=== PATIENT | female | born 2000 | race Two or more races ===

== ENCOUNTER 2023-03-02 18:45 | Emergency (ER) | payer BC, SELFPAY ==
[2023-03-02 18:53] VITALS: BP 118/77; PULSE 80; RESP 20; TEMP 36.9; O2SAT 98; BMI 25.9
--- NOTE | 2023-03-02 19:05 | PC.NURSE ---
Patient states she is 8 weeks , has had increased nausea and vomiting for the past few days. Has also been constipated despite using milk of magnesia. Has just not been feeling well.
--- NOTE | 2023-03-02 19:20 | ED_ITS ---
HPI - Abdominal Pain General Chief Complaint: Abdominal Pain Stated Complaint: Abdominal Pain, Nausea - 8wks Time Seen by Provider: 03/02/23 19:03 Source: patient Mode of arrival: walk-in Limitations: no limitations History of Present Illness HPI narrative: 22-year-old female who is and approximately eight weeks presents to the emergency department for abdominal pain. It's been continuous and it's just to the upper left over from her umbilicus. No vaginal bleeding. She's been constipated. No dysuria or back pain or dysuria. No fever or trauma. Related Data Home Medications Medication Instructions Recorded Confirmed No Known Home Medications 03/02/23 03/02/23 Allergies Allergy/AdvReac Type Severity Reaction Status Date / Time No Known Drug Allergies Allergy Verified 03/02/23 18:58 Review of Systems ROS Narrative A ten point review of systems is negative except as noted above. PFSH PFS Social History Smoking status: Never smoker Exam Narrative Exam Narrative: Nurses note and vital signs reviewed and patient is not hypoxic. General: The patient appears well and in no apparent distress. Patient is resting comfortably on cart. Skin: Warm, dry, no pallor noted. There is no rash noted. Head: Normocephalic, atraumatic Eye: Normal conjunctiva, no drainage Ears, Nose, Mouth, and Throat: oral mucosa is moist. Nares patent. Cardiovascular: Regular Rate and Rhythm Respiratory: Patient is in no distress, no accessory muscle use, lungs are clear to auscultation, no wheezing, rales or rhonchi Back: non-tender GI: tender to focal area immediately to the upper left of the umbilicus. There is no tenderness across the lower abdomen. No distention or masses. Musculoskeletal: The patient has no evidence of calf tenderness, no pitting edema, symmetrical pulses noted bilaterally Neurological: A&O, normal speech Psychiatric: Cooperative Constitutional Vital Signs, click to edit/add: Last Vital Signs Temp 98.4 F 03/02/23 18:53 Pulse 80 03/02/23 18:53 Resp 20 03/02/23 18:53 BP 118/77 03/02/23 18:53 Pulse Ox 98 03/02/23 18:53 O2 Del Method Room Air 03/02/23 18:53 Course Vital Signs Vital signs: Vital Signs Temperature 98.4 F 03/02/23 18:53 Pulse Rate 80 03/02/23 18:53 Respiratory Rate 20 03/02/23 18:53 Blood Pressure 118/77 03/02/23 18:53 Pulse Oximetry 98 03/02/23 18:53 Oxygen Delivery Method Room Air 03/02/23 18:53 Temperature 98.4 F 03/02/23 18:53 Pulse Rate 80 03/02/23 18:53 Respiratory Rate 20 03/02/23 18:53 Blood Pressure 118/77 03/02/23 18:53 Pulse Oximetry 98 03/02/23 18:53 Oxygen Delivery Method Room Air 03/02/23 18:53 MDM - Abdominal Pain MDM Narrative Medical decision making narrative: the patient has already had an ultrasound during this which showed intrauterine . She has no tenderness in the lower abdomen. I've no clinical suspicion of ectopic . The rest of her workup is negative including urinalysis and blood work. She has not been having good bowel movements and was recommended MiraLAX. 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 Treatment diagnosis and follow up are discussed with the patient. Differential Diagnosis Differential diagnosis: Likely abdominal pain, constipation and gastroenteritis Lab Data Attestation: I reviewed the patient's lab results. Labs: Lab Results 03/02/23 03/02/23 Range/Units 19:20 19:25 WBC 7.7 (4.0-11.0) 10^3/uL RBC 4.56 (4.20-5.40) 10^6/uL Hgb 13.7 (12.0-16.0) g/dL Hct 41.7 (36.0-48.0) % MCV 91.4 (81.0-99.0) fL MCH 30.0 (26.7-34.0) pg MCHC 32.9 (29.9-35.2) g/dL RDW 12.9 (11.0-15.0) % Plt Count 168 (150-450) 10^3/uL MPV 12.0 (9.5-13.5) fL Neut % (Auto) 75.8 H (43.0-75.0) % Lymph % (Auto) 13.0 L (20.5-60.0) % [place] % (Auto) 8.5 (1.7-12.0) % Eos % (Auto) 2.2 (0.9-7.0) % Baso % (Auto) 0.4 (0.2-2.0) % Neut # (Auto) 5.8 (1.4-6.5) 10^3/uL Lymph # (Auto) 1.0 L (1.2-3.8) 10^3/uL [place] # (Auto) 0.7 (0.3-0.8) 10^3/uL Eos # (Auto) 0.2 (0.0-0.7) 10^3/uL Baso # (Auto) 0.0 (0.0-0.1) 10^3/uL Abs Immat Gran (auto) 0.01 (0.00-0.03) 10^3/uL Imm/Tot Granulo (auto) 0.1 (0.0-0.5) % Sodium 136 (136-145) mmol/L Potassium 3.5 (3.5-5.1) mmol/L Chloride 102 (98-107) mmol/L Carbon Dioxide 25.2 (21.0-32.0) mmol/L Anion Gap 12.3 BUN 5.0 L (7.0-18.0) mg/dL Creatinine 0.61 (0.55-1.02) mg/dL Est GFR ( Amer) >60 (>=60) Est GFR (Non-Af Amer) >60 (>=60) BUN/Creatinine Ratio 8.2 Glucose 90 (74-106) mg/dL Calcium 8.8 (8.5-10.1) mg/dL HCG, Quant 877902 mIU/mL Urine Color Yellow (YELLOW) Urine Clarity Clear (CLEAR) Urine pH 6.0 (5.0-9.0) Ur Specific [place] 1.025 (1.005-1.025) Urine Protein Negative (NEG/TRACE) mg/dL Urine Glucose (UA) Negative (NEGATIVE) mg/dL Urine Ketones Negative (NEGATIVE) mg/dL Urine Occult Blood Small A (NEGATIVE) Urine Nitrite Negative (NEGATIVE) Urine Bilirubin Negative (NEGATIVE) Urine Urobilinogen 0.2 (0.2-1.0) EU/dL Ur Leukocyte Esterase Negative (NEGATIVE) Urine RBC 2-5 A (0-2) #/HPF Urine WBC None seen (NONE SEEN) #/HPF Ur Squamous Epith Cells Few A (NONE/RARE) #/LPF Urine Crystals None seen (None Seen) #/HPF Urine Bacteria None seen (NONE SEEN) #/HPF Urine Casts None seen (NONE SEEN) #/LPF Urine Mucus Small A (NONE SEEN) Discharge Plan Discharge Chief Complaint: Abdominal Pain Clinical Impression: Abdominal pain in , Constipation Patient Disposition: Home, Self-Care Time of Disposition Decision: 21:13 Condition: Good Mode of Transportation: Private Vehicle Prescriptions / Home Meds: No Action No Known Home Medications Instructions: Constipation (ED), Abdominal Pain in (ED) Additional Instructions: [id number]-tns-jabsdoh MiraLAX for constipation Stand Alone Forms: Portal Instructions Referrals: Physician,Non-Staff, MD [Primary Care Provider] - 1 week
[2023-03-02 19:38] LABS: Bilirubin Urine NEGATIVE (NEGATIVE); Blood Urine SMALL (NEGATIVE); Clarity Urine CLEAR (CLEAR); Color Urine YELLOW (YELLOW); Glucose Urine UA NEGATIVE (NEGATIVE); Ketones Urine NEGATIVE (NEGATIVE); Leukocyte Esterase Urine NEGATIVE (NEGATIVE); Nitrite Urine NEGATIVE (NEGATIVE); Protein Urine NEGATIVE (NEG/TRACE); Specific Gravity Urine 1.025 (1.005-1.025); Urobilinogen Urine 0.2 EU/dL (0.2-1.0)
[2023-03-02] MEDS: 0.9 % SODIUM CHLORIDE 1,000 ML 1000 ML IV (19:44)
[2023-03-02 19:49] LABS: Bacteria Urine NONE SEEN #/HPF (NONE SEEN); Cast Seen? NONE SEEN #/LPF (NONE SEEN); Crystals Seen? None Seen #/HPF (None Seen); Mucus Urine SMALL (NONE SEEN); Squamous Epithelial Cell Urine FEW #/LPF (NONE/RARE); WBC Urine NONE SEEN #/HPF (NONE SEEN)
[2023-03-02 20:13] LABS: Basophils Percent Auto 0.4 % (0.2-2.0); Eosinophils Absolute Auto 0.2 10^3/uL (0.0-0.7); Eosinophils Percent Auto 2.2 % (0.9-7.0); Hematocrit 41.7 % (36.0-48.0); Hemoglobin 13.7 g/dL (12.0-16.0); Immature Granulocytes Abs Auto 0.01 10^3/uL (0.00-0.03); Immature Granulocytes Pct Auto 0.1 % (0.0-0.5); Mean Corpuscular HGB Conc 32.9 g/dL (29.9-35.2); Mean Corpuscular Volume 91.4 fL (81.0-99.0); Monocytes Absolute Auto 0.7 10^3/uL (0.3-0.8); Monocytes Percent Auto 8.5 % (1.7-12.0); Neutrophils Absolute Auto 5.8 10^3/uL (1.4-6.5); Neutrophils Percent Auto 75.8 % (43.0-75.0); Platelet Count 168 10^3/uL (150-450); Red Blood Count 4.56 10^6/uL (4.20-5.40); Red Cell Distribution Width 12.9 % (11.0-15.0); White Blood Count 7.7 10^3/uL (4.0-11.0)
[2023-03-02 20:25] LABS: Anion Gap 12.3; BUN Creatinine Ratio 8.2; Calcium 8.8 mg/dL (8.5-10.1); Carbon Dioxide 25.2 mmol/L (21.0-32.0); Chloride 102 mmol/L (98-107); Estimated GFR (African America >60 (>=60); Estimated GFR (Non-African Ame >60 (>=60); Glucose 90 mg/dL (74-106); Potassium 3.5 mmol/L (3.5-5.1); Sodium 136 mmol/L (136-145)
[2023-03-02] MEDS: ONDANSETRON PF 4 MG/2 ML VIAL IV (20:41)
== END 2023-03-02 21:28 | disposition home or self-care (01) ==
PROVIDERS: Emergency Provider Emergency Medicine
DX: O26.891 Other specified pregnancy related conditions, first trimester (principal); R10.9 Unspecified abdominal pain; K59.00 Constipation, unspecified; Z3A.08 8 weeks gestation of pregnancy
CPT/HCPCS: 36415; 80048; 81001; 84702; 85025; 99284; J2405

== ENCOUNTER 2023-03-14 09:49 | Outpatient (OUT) | payer BC, SELFPAY ==
--- NOTE | 2023-03-14 09:48 | US_ITS ---
[address] [address] Patient Name: BEN ALVA MRN: [id number] date: 2000 Sex: F Assigned Patient Location: US Current Patient Location: US Accession/Order Number: [id number] Exam Date: 03/14/2023 09:50 Report Date: 03/14/2023 10:50 At the request of: LILIAN BERRY Procedure: US OB transvaginal EXAMINATION: US OB transvaginal HISTORY: MISSED MENSES COMPARISON: No relevant comparison available. FINDINGS: Pittman intrauterine gestation Gestational sac: 3.2 cm, 8 weeks 2 days CRL: 1.19 cm, 7 weeks 3 days Yolk sac: 3.1 mm Cardiac activity: Not visualized The uterus is normal, anteverted, anteflexed The ovaries are normal. Right corpus luteal cyst Cervix: Closed, 3.3 cm Clinical age: Unknown Ultrasound age: 7 weeks 3 days Ultrasound MILLI: 10/28/2023 Dr. Berry was made aware of the findings by the technologist at the time of exam US/US OB transvaginal IMPRESSION: No cardiac activity is observed consistent with a demise Electronically authenticated by: GAVIN GODINEZ Date: 03/14/2023 10:50
--- OUTSIDE RECORDS SUMMARY | 2023-03-14 09:52 | XMS_ITS | CCD ---
Author Name Unknown Address [facility] [employer] [facility] [address] [place] [address] Organization [facility] Care Team Providers Care Diesel Technician Mechanic Name Role Phone Kadie Bird MD Primary Care Provider [phone] KADIE BIRD Primary Care Unavailable LIZZY PYLE Attending Unavailable Medications Current Medications Medication Drug Class(es) Dates Sig (Normalized) Sig (Original) loratadine 10 mg oral tablet (1 source) Start: 07-05-2021 take 1 tablet by mouth once daily loratadine (CLARITIN) 10 MG tablet Take 1 tablet by mouth daily 30 tablet 1 07/05/2021 Active Completed/Discontinued Medications Medication Drug Class(es) Dates Sig (Normalized) Sig (Original) predniSONE 20 mg oral tablet (2 sources) Start: 07-05-2021 End: 07-05-2021 predniSONE (DELTASONE) tablet 40 mg Start: 07-05-2021 End: 07-10-2021 take 1 tablet by mouth once daily predniSONE (DELTASONE) 20 MG tablet Take 1 tablet by mouth daily for 5 doses 5 tablet 0 07/05/2021 07/10/2021 Active Problems Problem Classification Problem Date Documented Da te Episodic/Chronic Other lower respiratory disease (1 source) Dyspnea; Translations: [Shortness of breath] Episodic Other upper respiratory disease (1 source) Seasonal allergy; Translations: [Other seasonal allergic rhinitis] Chronic Results Test Name Value Interpretation Reference Range Facil ity Registrationon 03-01-2020 Registration [id number] #1.00CD:127 Normal [facility] [place] 02-29-2020 Consent [id number]#1 .00CD:127 Normal [facility] In office Testingon 02-28-19 21 In office Testing [id number]# 1.00CD:127 Normal [facility] [place] 11-12-2019 Consent [id number]# 1.00CD:127 [facility] In office Testingon 11-12-19 20 In office Testing [id number]# 1.00CD:127 [facility] Vital Signs Date Time Vital Sign Value Performing Clinician Branden flynn 07-05-2021 22:45-0400 Body temperature 98.6 [degF] Lizzy Pyle MD Work Phone: [facility] 07-05-2021 22:45-0400 Body weight 56.56 kg Lizzy Pyle MD Work Phone: [facility] 07-05-2021 22:45-0400 Diastolic blood pressure 90 mm[Hg] Lizzy Pyle MD Work Phone: [facility] 07-05-2021 22:45-0400 Heart rate 97 /min Lizzy Pyle MD Work Phone: [facility] 07-05-2021 22:45-0400 Respiratory rate 16 /min Lizzy Pyle MD Work Phone: [facility] 07-05-2021 22:45-0400 SaO2% (BldA) [Mass fraction] 96 % Lizzy Pyle MD Work Phone: [facility] 07-05-2021 22:45-0400 Systolic blood pressure 126 mm[Hg] Lizzy Pyle MD Work Phone: [facility] Encounters Encounter Date Encounter Type Care Provider Facility Start: 07-06-2021 End: 07-06-2021 Emergency department patient visit KADIE BIRD [facility] Start: 07-05-2021 End: 07-05-2021 Emergency department patient visit Lizzy Pyle MD Work Phone: [facility] ED Comment on above: Shortness of breath (Primary Dx); Seasonal allergies Plan of Treatment Date Care Activity Detail Author Start: 10-25-2021 Influenza vaccination Flu vaccine (S yodit Ended) [facility] Start: 11-11-2019 DTaP/Tdap/Td vaccine (1 - Tdap) DTaP/Tdap/Td vaccine (1 - Tdap) [facility] Start: 2018 Hepatitis C screening Hepatitis C sc reen [facility] Start: 2016 Screening for Chlamy rupa trachomatis Chlamydia screen [facility] Start: 11-11-2015 HIV screening HIV screen [facility] Start: 2012 Depression Screen Depression Screen [facility] Start: 11-11-2011 HPV vaccine (1 - 2-d ose series) HPV vaccine (1 - 2-dose series) [facility] Start: 2005 COVID-19 Vaccine (1) COVID-19 Vaccin e (1) [facility] Start: 2001 Varicella vaccine (1 of 2 - 2-dose childhood series) Varicella vaccine (1 of 2 - 2-dose childhood series) [facility] Payers Date Payer Category Payer Unknown [id number] 1972 Unknown [id number] Social History Date Type Detail Facility Start: 01-03-2013 Tobacco smoking stat [facility] Never smoked tobacco [facility] Start: 01-03-2013 Tobacco use and exposure Smokeless tobacco non-user [facility] [employer] Phone: Start: 07-05-2021 Alcohol intake 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 Managing Your Allergies: Care Instructions Your Care Instructions Managing your allergies is an important part of staying healthy. Your doctor will help you find out what may be the cause of the allergies. Common causes ofsymptoms are house dust and dust mites, animal dander, mold, and pollen. As soon as you know what triggers your symptoms, try to avoid those things.This can help prevent allergy symptoms, asthma, and other health problems. Ask your doctor about allergy medicine or immunotherapy. These treatments mayhelp reduce or prevent allergy symptoms. Follow-up care is a tucker part of your treatment and safety. Be sure to make and go to all appointments, and call your doctor if you are having problems. It's also a good idea to know your test results and keep alist of the medicines you take. How can you care for yourself at home? If you have been told by your doctor that dust or dust mites are causing your allergy, decrease the dust around your bed: ? Wash sheets, pillowcases, and other bedding in hot water every week. ? Use dust-proof covers for pillows, duvets, and mattresses. Avoid plastic covers because they tear easily and do not breathe. Wash as instructed on the label. ? Do not use any blankets and pillows that you do not need. ? Use blankets that you can wash in your washing machine. ? Consider removing drapes and carpets, which attract and hold dust, from your bedroom. If you are allergic to house dust and mites, do not use home humidifiers. Your doctor can suggest ways you can control dust and mites. Look for signs of cockroaches. Cockroaches cause allergic reactions. Use cockroach baits to get rid of them. Then, clean your home well. Cockroaches like areas where grocery bags, newspapers, empty bottles, or cardboard boxes are stored. Do not keep these inside your home, and keep trash and food containers sealed. Seal off any spots where cockroaches might enter your home. If you are allergic to mold, get rid of furniture, rugs, and drapes that smell musty. Check for mold in the bathroom. If you are allergic to outdoor pollen or mold spores, use air-conditioning. Change or clean all filters every month. Keep windows closed. If you are allergic to pollen, stay inside when pollen counts are high. Use a vacuum brass cleaner with a HEPA filter or a double-thickness filter at least two times each week. Stay inside when air pollution is bad. Avoid paint fumes, perfumes, and other strong odors. Avoid conditions that make your allergies worse. Stay away from smoke. Do not smoke or let anyone else smoke in your house. Do not use fireplaces or wood-burning stoves. If you are allergic to your pets, change the air filter in your furnace every month. Use high-efficiency filters. If you are allergic to pet dander, keep pets outside or out of your bedroom. Old carpet and cloth furniture can hold a lot of animal dander. You may need to replace them. When should you call for help? Give an epinephrine shot if: You think you are having a severe allergic reaction. After giving an epinephrine shot call 911, even if you feel better. Call 911 if: You have symptoms of a severe allergic reaction. These may include: ? Sudden raised, red areas (hives) all over your body. ? Swelling of the throat, mouth, lips, or tongue. ? Trouble breathing. ? Passing out (losing consciousness). Or you may feel very lightheaded or suddenly feel weak, confused, or restless. You have been given an epinephrine shot, even if you feel better. Call your doctor now or seek immediate medical care if: You have symptoms of an allergic reaction, such as: ? A rash or hives (raised, red areas on the skin). ? Itching. ? Swelling. ? Belly pain, nausea, or vomiting. Watch closely for changes in your health, and be sure to contact your doctor if: Your allergies get worse. You need help controlling your allergies. You have questions about allergy testing. You do not get better as expected. Where can you learn more? Go to [email or web address] and sign in to your [employer] account. Enter L249 in the Search Health Information box to learn more about Managing Your Allergies: Care Instructions. If you do not have an account, please click on the Sign Up Now link. Current as of: April 05, 2020 Content Version: 13.2 [employer]. Care instructions adapted under license by [employer]. If you have questions about a medical condition or this instruction, always ask your healthcare professional. [employer] disclaims any warranty or liability for your use of this information. Seasonal Allergies: Care Instructions Your Care Instructions Allergies occur when your body's defense system (immune system) overreacts to certain substances. The immune system treats a harmless substance as if it were a harmful germ or virus. Many things can cause this to happen. Examples includepollens, medicine, food, dust, animal dander, and mold. Your allergies are seasonal if you have symptoms just at certain times of the year. In that case, you are probably allergic to pollens from certain trees,grasses, or weeds. Allergies can be mild or severe. Jpti-lss-llcxqmo allergy medicine may helpwith some symptoms. Read and follow all instructions on the label. Managing your allergies is an important part of staying healthy. Your doctor may suggest that you have tests to help find the cause of your allergies. When you know what things trigger your symptoms, you can avoid them. This canprevent allergy symptoms and other health problems. In some cases, immunotherapy might help. For this treatment, you get shots or use pills that have a small amount of certain allergens in them. Your body gets used to the allergen, so you react less to it over time. This kind oftreatment may help prevent or reduce some allergy symptoms. Follow-up care is a tucker part of your treatment and safety. Be sure to make and go to all appointments, and call your doctor if you are having problems. It's also a good idea to know your test results and keep alist of the medicines you take. How can you care for yourself at home? Be safe with medicines. Take your medicines exactly as prescribed. Call your doctor if you think you are having a problem with your medicine. During your allergy season, keep windows closed. If you need to use air-conditioning, change or clean all filters every month. Take a shower and change your clothes after you have been outside. Stay inside when pollen counts are high. Vacuum once or twice a week. Use a vacuum brass cleaner with a HEPA filter or a double-thickness filter. When should you call for help? Give an epinephrine shot if: You think you are having a severe allergic reaction. After giving an epinephrine shot, call 911, even if you feel better. Call 911 if: You have symptoms of a severe allergic reaction. These may include: ? Sudden raised, red areas (hives) all over your body. ? Swelling of the throat, mouth, lips, or tongue. ? Trouble breathing. ? Passing out (losing consciousness). Or you may feel very lightheaded or suddenly feel weak, confused, or restless. You have been given an epinephrine shot, even if you feel better. Call your doctor now or seek immediate medical care if: You have symptoms of an allergic reaction, such as: ? A rash or hives (raised, red areas on the skin). ? Itching. ? Swelling. ? Belly pain, nausea, or vomiting. Watch closely for changes in your health, and be sure to contact your doctor if: You do not get better as expected. Where can you learn more? Go to [email or web address] and sign in to your [employer] account. Enter J912 in the Search Health Information box to learn more about Seasonal Allergies: Care Instructions. If you do not have an account, please click on the Sign Up Now link. Current as of: April 05, 2020 Content Version: 13.2 [employer]. Care instructions adapted under license by [employer]. If you have questions about a medical condition or this instruction, always ask your healthcare professional. [employer] disclaims any warranty or liability for your use of this information. 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 Ordered Prescriptions (unrec ognized section and content) Prescription Sig Dispensed Refills Start Date End Da te loratadine (CLARITIN) 10 MG tablet Take 1 tablet by mouth daily 30 tablet 1 07/05/2021 predniSONE (DELTASONE) 20 MG tablet Take 1 tablet by mouth daily for 5 doses 5 tablet 0 07/05/2021 07/10/2021 Scheduled Active and Recently Administ ered Medications (unrecognized section and content) Medication Order 07/03/2021 07/04/2021 07/05/2021 predniSONE (DELTASONE) tablet 40 mg (COMPLETED) 40 mg, Oral, NOW, 1 dose, On Laurie 07/05/21 at 2330 [id number] (Given - Provid er: Brigida Brown RN) Care Teams (unrecognized sec tion and content) Diesel Technician Mechanic Relationship Specialty Start Date End Date Kadie Bird MD [address] [place] [address] PCP - General 03/14/16 FOR RECORDS PERTAINING TO PATIENTS WHO ARE OR HAVE BEEN ENROLLED IN A CHEMICAL DEPENDENCY/SUBSTANCEABUSE PROGRAM, SOME INFORMATION MAY BE OMITTED. This clinical summary was aggregated from multiple sources. Caution should be exercised in using it in the provision of clinical care. This summary normalizes information from multiple sources, and as a consequence, information in this document may materially change the coding, format and clinical context of patient data. In addition, data may be omitted in some cases. CLINICAL DECISIONS SHOULD BE BASED ON THE PRIMARY CLINICAL RECORDS. [employer] [facility]. provides no warranty or guarantee of the accuracy or completeness of information in this document.
== END 2023-03-14 09:50 | disposition home or self-care (01) ==
LOC: US 09:49
PROVIDERS: Visit Provider Obstetrics & Gynecology
DX: N92.6 Irregular menstruation, unspecified (principal); O36.4XX1 Maternal care for intrauterine death, fetus 1; Z3A.08 8 weeks gestation of pregnancy
CPT/HCPCS: 76817

== ENCOUNTER 2023-03-19 08:04 | Outpatient (OUT) | payer BC, SELFPAY ==
--- OUTSIDE RECORDS SUMMARY | 2023-03-19 08:07 | XMS_ITS | CCD ---
Author Name Unknown Address [facility] Dragon[employer] List [facility] [address] [place] [address] Organization [facility] Care Team Providers Care Cpa Tax Name Role Phone Kadie Bird MD Primary Care Provider KADIE BIRD Primary Care Unavailable LIZZY PYLE [...] Range Facil ity Registrationon 03-01-2020 Registration [id number] #1.00CD:127 Normal [facility] [place] 02-29-2020 Consent [id number]#1 .00CD:127 Normal [facility] In office Testingon 02-28-19 21 In office Testing [id number]# 1.00CD:127 Normal [facility] [place] 11-12-2019 Consent [id number]# 1.00CD:127 [facility] In office Testingon 11-12-19 20 In office Testing [id number]# 1.00CD:127 [facility] Vital Signs Date Time Vital Sign Value Performing Clinician Branden flynn 07-05-2021 22:45-0400 Body temperature 98.6 [degF] Lizzy Pyle MD Work Phone: [facility] 07-05-2021 22:45-0400 Body weight 56.56 kg Lizzy Pyle MD Work Phone: [facility] 07-05-2021 22:45-0400 Diastolic blood pressure 90 mm[Hg] Lizzy Pyle MD Work Phone: [facility] 07-05-2021 22:45-0400 Heart rate 97 /min Lizzy Pyle MD Work Phone: [facility] 07-05-2021 22:45-0400 Respiratory rate 16 /min Lizzy Pyle MD Work Phone: [facility] 07-05-2021 22:45-0400 SaO2% (BldA) [Mass fraction] 96 % Lizzy Pyle MD Work Phone: [facility] 07-05-2021 22:45-0400 Systolic blood pressure 126 mm[Hg] Lizzy Pyle MD Work Phone: [facility] Encounters Encounter Date Encounter Type Care Provider Facility Start: 07-06-2021 End: 07-06-2021 Emergency department patient visit KADIE BIRD [facility] Start: 07-05-2021 End: 07-05-2021 Emergency department patient visit Lizzy Pyle MD Work Phone: [facility] ED Comment on above: Shortness of breath (Primary Dx); Seasonal allergies Plan of Treatment Date Care Activity Detail Author Start: 10-25-2021 Influenza vaccination Flu vaccine (S yodit Ended) [facility] Start: 11-11-2019 DTaP/Tdap/Td vaccine (1 - Tdap) DTaP/Tdap/Td vaccine (1 - Tdap) [facility] Start: 2018 Hepatitis C screening Hepatitis C sc reen [facility] Start: 2016 Screening for Chlamy rupa trachomatis Chlamydia screen [facility] Start: 11-11-2015 HIV screening HIV screen [facility] Start: 2012 Depression Screen Depression Screen [facility] Start: 11-11-2011 HPV vaccine (1 - 2-d ose series) HPV vaccine (1 - 2-dose series) [facility] Start: 2005 COVID-19 Vaccine (1) COVID-19 Vaccin e (1) [facility] Start: 2001 Varicella vaccine (1 of 2 - 2-dose childhood series) Varicella vaccine (1 of 2 - 2-dose childhood series) [facility] Payers Date Payer Category Payer Unknown [id number] 1972 Unknown [id number] Social History Date Type Detail Facility Start: 01-03-2013 Tobacco smoking stat [facility] Never smoked tobacco 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 Use a vacuum freight car cleaner delta system with a HEPA filter or a double-thickness [...] Where can you learn more? Go to [email or web address] and sign in to your [employer]iz[employer] account. Enter L249 in the Search Health Information box to learn more about Managing Your Allergies: Care Instructions. If you do not have an account, please click on the Sign Up Now link. Current as of: April 05, 2020 Content Version: 13.2 [employer]. Care instructions adapted under license by [employer]. If you have questions about a medical condition or this instruction, always ask your healthcare professional. [employer] disclaims any warranty or liability for your [...] weeds. Allergies can be mild or severe. Sjsm-dxo-beexkpf allergy medicine may helpwith some symptoms. Read [...] or twice a week. Use a vacuum freight car cleaner delta system with a HEPA filter or a double-thickness [...] Where can you learn more? Go to [email or web address] and sign in to your [employer] account. Enter J912 in the Search Health Information box to learn more about Seasonal Allergies: Care Instructions. If you do not have an account, please click on the Sign Up Now link. Current as of: April 05, 2020 Content Version: 13.2 [employer] System. Care instructions adapted under license by [employer]. If you have questions about a medical condition or this instruction, always ask your healthcare professional. [employer] disclaims any warranty or liability for your use of this information. The following attachments cannot be sent through ChangePanda Everywhere.Allergies (Allergic Rhinitis): Managing (Cuban)documented in this encounter [employer] Phone: Evaluation note Note Date & Type Note Facility Evaluation note Diagnosis Shortness of breath- Primary Seasonal allergies Allergic rhinitis, cause unspecified documented in this encounter [employer] Phone: Summary Purpose Family History No Family History Records FoundNo Family History Records Found Advance Directives No Advanced Directives Records FoundDocuments on File Type Date Recorded Patient Counter Hop Expl anation ACP-Advance Directive ACP-Power of Hand Roller Engraver Additional Source Comments INFORMATION SOURCE (unrecogn ized section and content) DATE CREATED AUTHOR 03/02/2020 Keyur Jasso [facility] DATE CREATED AUTHOR AUTHOR'S ORGANIZ [...] Care Teams (unrecognized sec tion and content) Cpa Tax Relationship Specialty Start Date End Date Kadie Bird MD [address] [place] [address] PCP - General 03/14/16 FOR [...] BE BASED ON THE PRIMARY CLINICAL RECORDS. [employer] [facility]. provides no warranty or guarantee of the accuracy or completeness of information in this document.
--- NOTE | 2023-03-19 08:09 | US_ITS ---
The [address] [address] Patient Name: BEN ALVA MRN: [id number] date: 2000 Sex: F Assigned Patient Location: [facility] Current Patient Location: [facility] Accession/Order Number: [id number] Exam Date: 03/19/2023 08:08 Report Date: 03/19/2023 09:09 At the request of: LILIAN BERRY Procedure: US OB transvaginal EXAMINATION: US OB transvaginal HISTORY: VIABILITY COMPARISON: 03/14/2023 FINDINGS: Pittman intrauterine gestation Yolk sac: Calcified Gestational sac: 3.31 cm, 8 weeks 2 days CRL: 1.22 cm, 7 weeks 3 days Cardiac activity: None The uterus is normal, anteverted, anteflexed The ovaries are normal. The cervix is closed measuring 3.7 cm. Findings relayed by the technologist to Dr. Berry at the time of exam US/US OB transvaginal IMPRESSION: Absent cardiac activity consistent with demise Electronically authenticated by: GAVIN GODINEZ Date: 03/19/2023 09:09
== END 2023-03-19 08:05 | disposition home or self-care (01) ==
LOC: NOMS 08:04
PROVIDERS: Visit Provider Obstetrics & Gynecology
DX: O02.1 Missed abortion (principal); O36.80X1 Pregnancy with inconclusive fetal viability, fetus 1; Z3A.08 8 weeks gestation of pregnancy
CPT/HCPCS: 76817

== ENCOUNTER 2023-03-24 13:16 | Outpatient (OUT) | payer BC, SELFPAY ==
--- OUTSIDE RECORDS SUMMARY | 2023-03-24 13:19 | XMS_ITS | CCD ---
Author Name Unknown Address [facility] [address] [place] [address] Organization [facility] Care Team Providers Care Crusher Operator Name Role Phone Kadie Bird MD Primary [...] Range Facil ity Registrationon 03-01-2020 Registration [id number] #1.00CD:127 Normal [facility] [place] 02-29-2020 Consent [id number]#1 .00CD:127 Normal [facility] In office Testingon 02-28-19 21 In office Testing [id number]# 1.00CD:127 Normal [facility] [place] 11-12-2019 Consent [id number]# 1.00CD:127 [facility] In office Testingon 11-12-19 20 In office Testing [id number]# 1.00CD:127 [facility] Vital Signs Date Time Vital Sign Value Performing Clinician Branden flynn 07-05-2021 22:45-0400 Body temperature 98.6 [degF] Lizzy Pyle MD Work Phone: [facility] 07-05-2021 22:45-0400 Body weight 56.56 kg Lizzy Pyle MD Work Phone: [facility] 07-05-2021 22:45-0400 Diastolic blood pressure 90 mm[Hg] Lizzy Pyle MD Work Phone: [facility] 07-05-2021 22:45-0400 Heart rate 97 /min Lizzy Pyle MD Work Phone: [facility] 07-05-2021 22:45-0400 Respiratory rate 16 /min Lizzy Pyle MD Work Phone: [facility] 07-05-2021 22:45-0400 SaO2% (BldA) [Mass fraction] 96 % Lizzy Pyle MD Work Phone: [facility] 07-05-2021 22:45-0400 Systolic blood pressure 126 mm[Hg] Lizzy Pyle MD Work Phone: [facility] Encounters Encounter Date Encounter Type Care Provider Facility Start: 07-06-2021 End: 07-06-2021 Emergency department patient visit KADIE BIRD [facility] Start: 07-05-2021 End: 07-05-2021 Emergency department patient visit Lizzy Pyle MD Work Phone: [facility] ED Comment on above: Shortness of breath (Primary Dx); Seasonal allergies Plan of Treatment Date Care Activity Detail Author Start: 10-25-2021 Influenza vaccination Flu vaccine (S yodit Ended) [facility] Start: 11-11-2019 DTaP/Tdap/Td vaccine (1 - Tdap) DTaP/Tdap/Td vaccine (1 - Tdap) [facility] Start: 2018 Hepatitis C screening Hepatitis C sc reen [facility] Start: 2016 Screening for Chlamy rupa trachomatis Chlamydia screen [facility] Start: 11-11-2015 HIV screening HIV screen [facility] Start: 2012 Depression Screen Depression Screen [facility] Start: 11-11-2011 HPV vaccine (1 - 2-d ose series) HPV vaccine (1 - 2-dose series) [facility] Start: 2005 COVID-19 Vaccine (1) COVID-19 Vaccin e (1) [facility] Start: 2001 Varicella vaccine (1 of 2 - 2-dose childhood series) Varicella vaccine (1 of 2 - 2-dose childhood series) [facility] Payers Date Payer Category Payer Unknown [id number] 1972 Unknown [id number] Social History Date Type Detail Facility Start: 01-03-2013 Tobacco smoking stat [facility] Never smoked tobacco [facility] Start: 01-03-2013 Tobacco use and exposure Smokeless tobacco non-user [facility] [employer] Phone: Start: 07-05-2021 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 Use a vacuum welt stitch cleaner with a HEPA filter or a [...] Where can you learn more? Go to [email or web address] and sign in to your [employer] account. Enter L249 in the Search Health Information box to learn more about Managing Your Allergies: Care Instructions. If you do not have an account, please click on the Sign Up Now link. Current as of: April 05, 2020 Content Version: 13.2 [employer]. Care instructions adapted under license by [employer]. If you have questions about a medical condition or this instruction, always ask your healthcare professional. [employer] disclaims any warranty or liability for your [...] weeds. Allergies can be mild or severe. Ijnt-grw-irlzgbp allergy medicine may helpwith some symptoms. Read [...] or twice a week. Use a vacuum welt stitch cleaner with a HEPA filter or a [...] Where can you learn more? Go to [email or web address] and sign in to your [employer] account. Enter J912 in the Search Health Information box to learn more about Seasonal Allergies: Care Instructions. If you do not have an account, please click on the Sign Up Now link. Current as of: April 05, 2020 Content Version: 13.2 [employer]. Care instructions adapted under license by [employer]. If you have questions about a medical condition or this instruction, always ask your healthcare professional. [employer] disclaims any warranty or liability for your use of this information. 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 [employer] [facility]. provides no warranty or guarantee of the accuracy or completeness of information in this document.
--- NOTE | 2023-03-24 13:49 | PM.PRESUREVA ---
History of Present Illness History of Present Illness Chief complaint: missed ab Narrative: Patient presents for preadmission testing. The patient states she had a transvaginal ultrasound done on March 19 for viability, and there was no cardiac activity found. Patient states she has been having some light abdominal cramping but no bleeding. She denies nausea, vomiting, fever, or any other complaints. Review of Systems ROS Narrative REVIEW OF SYSTEMS: Negative except as stated in HPI, ten or more systems reviewed. Constitutional: No fever , chills, weakness ENT: No sore throat or epistaxis Cardiovascular: No edema, chest pain, palpitations, or activity intolerance Respiratory: No shortness of breath, cough, or wheezing Musculoskeletal: No joint pain or swelling Genitourinary: No dysuria or hematuria Neurological: No numbness, tingling, weakness, or headache Psychiatric: No mood changes PFSH PFS Medical History (Updated 03/24/23 @ 13:34 by Jamaica Leach NP) Missed ?O02.1 - Missed (ICD-10) Asthma ?J45.909 - Unspecified asthma, uncomplicated (ICD-10) Family History (Updated 03/24/23 @ 13:34 by Jamaica Leach NP) Other Family history of diabetes mellitus Social History (Updated 03/24/23 @ 13:32 by Jamaica Leach NP) Within the past year, how often did you have a drink containing alcohol: never Score interpretation: A score less than 3 is consistent with normal alcohol consumption. 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 Highest level of school completed/degree received: high school graduate Meds Home Medications and Allergies Home Medications Medication Instructions Recorded Confirmed Type No Known Home Medications 03/02/23 03/24/23 History Allergies Allergy/AdvReac Type Severity Reaction Status Date / Time No Known Drug Allergies Allergy Verified 03/24/23 13:31 Exam Narrative Exam Narrative: Constitutional: Awake, alert, comfortable, well-appearing, nontoxic, interactive, vital signs as charted Head: Normocephalic, atraumatic Neck: Supple, normal appearance, normal range of motion, no meningeal signs, no lymphadenopathy Respiratory: No respiratory distress, breath sounds clear Cardiovascular: Regular rate and rhythm, strong and regular heart tones Abdomen: Nontender, normal bowel sounds, soft, no CVA tenderness Musculoskeletal: Normal gait, no swelling or edema Skin: No rashes or induration, no lesions, only visible skin inspected Neuro: No neurological deficits, normal sensation Psychiatric: Oriented ?3, normal affect Assessment and Plan Assessment and Plan (1) Missed : Plan D and C with suction scheduled with Dr. Berry 03/26/2023.
== END 2023-03-24 13:17 | disposition home or self-care (01) ==
LOC: PST 13:17
PROVIDERS: Visit Provider Obstetrics & Gynecology
DX: Z01.818 Encounter for other preprocedural examination (principal); O02.1 Missed abortion
CPT/HCPCS: G0463

== ENCOUNTER 2023-03-26 07:10 | Day surgery (SDC) | payer BC, SELFPAY ==
[2023-03-24 13:45] VITALS: BP 108/71; PULSE 72; RESP 14; TEMP 36.4; O2SAT 99; BMI 24.6
[2023-03-26] VITALS (9 sets, daily range): BP systolic 84–106; BP diastolic 48–68; PULSE 67–85; RESP 16–26; TEMP 36.4–36.6; O2SAT 96–100
--- OUTSIDE RECORDS SUMMARY | 2023-03-26 07:14 | XMS_ITS | CCD ---
Author Name Unknown Address [facility] Face++ [facility] [address] [place] [address] Organization [facility] Care Team Providers Care Casing Tier Name Role Phone Kadie Bird MD Primary Care Provider [phone] KADIE BIRD Primary Care Unavailable LIZZY PYLE [...] Range Facil ity Registrationon 03-01-2020 Registration [id number] #1.00CD:127 Normal [facility] 02-29-2020 Consent [id number]#1 .00CD:127 Normal [facility] In office Testingon 02-28-19 21 In office Testing [id number]# 1.00CD:127 Normal [facility] 11-12-2019 Consent [id number]# 1.00CD:127 [facility] In office Testingon 11-12-19 20 In office Testing [id number]# 1.00CD:127 [facility] Vital Signs Date Time Vital Sign Value Performing Clinician Branden flynn 07-05-2021 22:45-0400 Body temperature 98.6 [degF] Lizzy Pyle MD Work Phone: [facility] 07-05-2021 22:45-0400 Body weight 56.56 kg Lizzy Pyle MD Work Phone: [facility] 07-05-2021 22:45-0400 Diastolic blood pressure 90 mm[Hg] Lizzy Pyle MD Work Phone: [facility] 07-05-2021 22:45-0400 Heart rate 97 /min Lizzy Pyle MD Work Phone: [facility] 07-05-2021 22:45-0400 Respiratory rate 16 /min Lizzy Pyle MD Work Phone: [facility] 07-05-2021 22:45-0400 SaO2% (BldA) [Mass fraction] 96 % Lizzy Pyle MD Work Phone: [facility] 07-05-2021 22:45-0400 Systolic blood pressure 126 mm[Hg] Lizzy Pyle MD Work Phone: [facility] Encounters Encounter Date Encounter Type Care Provider Facility Start: 07-06-2021 End: 07-06-2021 Emergency department patient visit KADIE BIRD [facility] Start: 07-05-2021 End: 07-05-2021 Emergency department patient visit Lizzy Pyle MD Work Phone: [facility] ED Comment on above: Shortness of breath (Primary Dx); Seasonal allergies Plan of Treatment Date Care Activity Detail Author Start: 10-25-2021 Influenza vaccination Flu vaccine (S yodit Ended) [facility] Start: 11-11-2019 DTaP/Tdap/Td vaccine (1 - Tdap) DTaP/Tdap/Td vaccine (1 - Tdap) [facility] Start: 2018 Hepatitis C screening Hepatitis C sc reen [facility] Start: 2016 Screening for Chlamy rupa trachomatis Chlamydia screen [facility] Start: 11-11-2015 HIV screening HIV screen [facility] Start: 2012 Depression Screen Depression Screen [facility] Start: 11-11-2011 HPV vaccine (1 - 2-d ose series) HPV vaccine (1 - 2-dose series) [facility] Start: 2005 COVID-19 Vaccine (1) COVID-19 Vaccin e (1) [facility] Start: 2001 Varicella vaccine (1 of 2 - 2-dose childhood series) Varicella vaccine (1 of 2 - 2-dose childhood series) [facility] Payers Date Payer Category Payer Unknown [id number] 1972 Unknown [id number] Social History Date Type Detail Facility Start: 01-03-2013 Tobacco smoking stat [facility] Never smoked tobacco [facility] Start: 01-03-2013 Tobacco use and exposure Smokeless tobacco non-user [facility] [facility] Phone: Start: 07-05-2021 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 Phone: Start: 06-25-2021 End: 05-13-2022 Exposure to SARS-CoV-2 (event) Not sure [employer] Work Phone: Hospital Discharge instructions 07-05-2021 InstructionsAttachments [...] pollen counts are high. Use a vacuum industrial sweeper cleaner with a HEPA filter or a [...] Where can you learn more? Go to [email or web address] and sign in to your Think Realtime account. Enter L249 in the Search Health Information box to learn more about Managing Your Allergies: Care Instructions. If you do not have an account, please click on the Sign Up Now link. Current as of: April 05, 2020 Content Version: 13.2 [employer]Library. Care instructions adapted under license by [employer] If you have questions about a medical condition or this instruction, always ask your healthcare professional. [employer] disclaims any warranty or liability for your [...] weeds. Allergies can be mild or severe. Ethz-kro-vygwojk allergy medicine may helpwith some symptoms. Read [...] or twice a week. Use a vacuum industrial sweeper cleaner with a HEPA filter or a [...] Where can you learn more? Go to [email or web address] and sign in to your Think Realtime account. Enter J912 in the Search Health Information box to learn more about Seasonal Allergies: Care Instructions. If you do not have an account, please click on the Sign Up Now link. Current as of: April 05, 2020 Content Version: 13.2 [employer]. Care instructions adapted under license by [employer] If you have questions about a medical condition or this instruction, always ask your healthcare professional. [employer] disclaims any warranty or liability for your use of this information. 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 DATE CREATED AUTHOR AUTHOR'S ORGANIZ ATION [...] Care Teams (unrecognized sec tion and content) Casing Tier Relationship Specialty Start Date End Date Kadie Bird MD [address] [place] [address] PCP - General 03/14/16 FOR [...] BE BASED ON THE PRIMARY CLINICAL RECORDS. [employer] [facility]. provides no warranty or guarantee of the accuracy or completeness of information in this document.
[2023-03-26 07:21] LABS: Basophils Percent Auto 0.6 % (0.2-2.0); Eosinophils Absolute Auto 0.2 10^3/uL (0.0-0.7); Eosinophils Percent Auto 3.5 % (0.9-7.0); Immature Granulocytes Abs Auto 0.01 10^3/uL (0.00-0.03); Immature Granulocytes Pct Auto 0.2 % (0.0-0.5); Lymphocytes Absolute Auto 2.5 10^3/uL (1.2-3.8); Lymphocytes Percent Auto 37.8 % (20.5-60.0); Mean Corpuscular HGB Conc 33.3 g/dL (29.9-35.2); Mean Corpuscular Hemoglobin 30.3 pg (26.7-34.0); Mean Corpuscular Volume 90.9 fL (81.0-99.0); Mean Platelet Volume 11.5 fL (9.5-13.5); Monocytes Absolute Auto 0.5 10^3/uL (0.3-0.8); Monocytes Percent Auto 6.9 % (1.7-12.0); Neutrophils Absolute Auto 3.3 10^3/uL (1.4-6.5); Platelet Count 169 10^3/uL (150-450); Red Blood Count 4.62 10^6/uL (4.20-5.40); Red Cell Distribution Width 13.2 % (11.0-15.0); White Blood Count 6.5 10^3/uL (4.0-11.0)
[2023-03-26 08:03] LABS: HCG Quantitative 18418 mIU/mL
[2023-03-26] MEDS: LACTATED RINGER'S SOLUTION 1,000 ML 50 ML IV (09:50)
--- NOTE | 2023-03-26 09:59 | PM.ONB ---
Brief Operative Note Date of procedure: 03/26/23 Pre-op diagnosis: missed Post-op diagnosis: same as pre-op Procedure: NAME OF PROCEDURE: [D&C suction ] PROCEDURE: The patient was taken back to the OR where she was given general anesthesia without difficulty. She was then placed in dorsal lithotomy position, prepped and draped in the normal sterile fashion. A weighted speculum was placed in the patient's vagina and the anterior lip of the cervix was identified and grasped with a single-tooth tenaculum. The patient was then gently dilated using Hegar dilators after we had sounded roughly to 12 cm. The suction curette was then tested. The suction curette was then placed in the patient's uterus and products of conception were removed using an 10-Slovenian suction curette. ?Excellent hemostasis was noted. The patient tolerated the procedure well. Sponge, lap, and needle counts were correct x 2. All instruments were then removed from the patient's vagina. The patient was taken to the Recovery Room in stable condition. ?? Anesthesia: MAC Surgeon: Sidney Berry Estimated blood loss (mL): 10 Pathology: other (poc) Condition: stable Disposition: PACU
--- NOTE | 2023-03-26 11:18 | PC.NURSE ---
Up to bathroom and voids without difficulty; moderate amount bleeding noted in toliet and moderate amount bleeding on peripad; no clots noted
--- NOTE | 2023-03-26 12:25 | PC.NURSE ---
Peripad noted to have small amount red drainage without clots; instructed to use heating pad at home and verbalized understanding
== END 2023-03-26 11:45 | disposition home or self-care (01) ==
PROVIDERS: Visit Provider Obstetrics & Gynecology
PROC: (CPT 1965; principal; 2023-03-26 08:40)
DX: O02.1 Missed abortion (principal); J45.909 Unspecified asthma, uncomplicated
CPT/HCPCS: 59820; 36415; 84702; 85025; 86900; 86901; 88305; J1100; J1885; J2250; J2405; J2590; J2704; J3010

== ENCOUNTER 2023-04-02 10:53 | Outpatient (RCR) | payer BC, SELFPAY ==
[2023-04-02 13:21] LABS: HCG Quantitative 63 mIU/mL
== END 2023-04-24 17:41 | disposition home or self-care (01) ==
LOC: LAB 10:53
PROVIDERS: Visit Provider Obstetrics & Gynecology
DX: O03.9 Complete or unspecified spontaneous abortion without complication (principal); Z98.890 Other specified postprocedural states; Z51.89 Encounter for other specified aftercare
CPT/HCPCS: 36415; 84702

== ENCOUNTER 2023-06-12 09:09 | Outpatient (RCR) | payer BC, SELFPAY ==
[2023-06-12 10:35] LABS: HCG Quantitative 5262 mIU/mL
[2023-06-14 11:01] LABS: HCG Quantitative 9929 mIU/mL
== END 2023-06-24 18:20 | disposition home or self-care (01) ==
LOC: LAB 09:09
PROVIDERS: Visit Provider Obstetrics & Gynecology
DX: N92.6 Irregular menstruation, unspecified (principal)
CPT/HCPCS: 36415; 84702

== ENCOUNTER 2023-06-18 10:22 | Outpatient (OUT) | payer BC, SELFPAY ==
[2023-06-18 11:09] LABS: HCG Quantitative 29763 mIU/mL
== END 2023-06-18 10:23 | disposition home or self-care (01) ==
LOC: LAB 10:23
PROVIDERS: Visit Provider Obstetrics & Gynecology
DX: O03.9 Complete or unspecified spontaneous abortion without complication (principal); Z98.890 Other specified postprocedural states; Z51.89 Encounter for other specified aftercare
CPT/HCPCS: 36415; 84702

== ENCOUNTER 2023-07-18 08:32 | Outpatient (OUT) | payer BC, SELFPAY ==
--- NOTE | 2023-07-18 08:34 | US_ITS ---
The [address] [address] Patient Name: BEN CHANCE MRN: [id number] date: 2000 Sex: F Assigned Patient Location: [facility] Current Patient Location: [facility] Accession/Order Number: [id number] Exam Date: 07/18/2023 08:34 Report Date: 07/18/2023 09:28 At the request of: LILIAN TORRES Procedure: US OB transvaginal EXAMINATION: US OB transvaginal HISTORY: MISSED MENSES COMPARISON: No relevant comparison available. FINDINGS: GESTATIONAL SAC: Present and normal appearing. YOLK SAC: Present and normal appearing. POLE: Present and normal appearing. CARDIAC: Present. UTERUS: Normal size and appearance. OVARIES: Right: Corpus lutein cyst. Left: Normal. CERVIX: 4.8 cm in length and closed. CUL-DE-SAC: Normal. OTHER: None. AGE BY LMP: 11 weeks 0 days MILLI BY LMP: 02/06/2024 AGE BY US CRL: 10 weeks 4 days MILLI BY US CRL: 02/09/2024 US/US OB transvaginal IMPRESSION: 1. Single live intrauterine . Electronically authenticated by: BARRY SHELDON Date: 07/18/2023 09:28
--- OUTSIDE RECORDS SUMMARY | 2023-07-18 08:51 | XMS_ITS | CCD ---
Author Organization [facility] Care Team Providers Care Recreation Establishment Manager Name Role Phone Kadie Bird MD Primary Care Provider KADIE BIRD Primary Care Unavailable LIZZY PYLE Attending Unavailable LILIAN TORRES Attending Unavailable Medications Current Medications Medication Drug [...] Range Facil ity Registrationon 03-01-2020 Registration [id number] #1.00CD:127 [facility] 02-29-2020 Consent [id number]#1 .00CD:127 [facility] In office Testingon 02-28-19 21 In office Testing [id number]# 1.00CD:127 [facility] 11-12-2019 Consent [id number]. [id number]# 1.00CD:127 [facility] In office Testingon 11-12-19 20 In office Testing [id number]. [id number]# 1.00CD:127 [facility] Vital Signs Date Time Vital Sign Value Performing Clinician Faci lity 07-05-2021 22:45-0400 Body temperature 98.6 [degF] Lizzy Pyle MD Work Phone: [facility] 07-05-2021 22:45-0400 Body weight 56.56 kg Lizzy Pyle MD Work Phone: [facility] 07-05-2021 22:45-0400 Diastolic blood pressure 90 mm[Hg] Lizzy Pyle MD Work Phone: [facility] 07-05-2021 22:45-0400 Heart rate 97 /min Lizzy Pyle MD Work Phone: [facility] 07-05-2021 22:45-0400 Respiratory rate 16 /min Lizzy Pyle MD Work Phone: [facility] 07-05-2021 22:45-0400 SaO2% (BldA) [Mass fraction] 96 % Lizzy Pyle MD Work Phone: [facility] 07-05-2021 22:45-0400 Systolic blood pressure 126 mm[Hg] Lizzy Pyle MD Work Phone: [facility] Encounters Encounter Date Encounter Type Care Provider Facility Start: 04-02-2023 End: 04-02-2023 ambulatory LILIAN TORRES Not Available Start: 07-06-2021 End: 07-06-2021 Emergency department patient visit KADIE BIRD [facility] Start: 07-05-2021 End: 07-05-2021 Emergency department patient visit Lizzy Pyle MD Work Phone: [facility] ED Comment on above: Shortness of breath (Primary Dx); Seasonal allergies Plan of Treatment Date Care Activity Detail Author Start: 10-25-2021 Influenza vaccination Flu vaccine (S yodit Ended) [facility] Start: 11-11-2019 DTaP/Tdap/Td vaccine (1 - Tdap) DTaP/Tdap/Td vaccine (1 - Tdap) [facility] Start: 2018 Hepatitis C screening Hepatitis C sc reen [facility] Start: 2016 Screening for Chlamy rupa trachomatis Chlamydia screen [facility] Start: 11-11-2015 HIV screening HIV screen [facility] Start: 2012 Depression Screen Depression Screen [facility] Start: 11-11-2011 HPV vaccine (1 - 2-d ose series) HPV vaccine (1 - 2-dose series) [facility] Start: 2005 COVID-19 Vaccine (1) COVID-19 Vaccin e (1) [facility] Start: 2001 Varicella vaccine (1 of 2 - 2-dose childhood series) Varicella vaccine (1 of 2 - 2-dose childhood series) [facility] Payers Date Payer Category Payer Unknown [id number] 2014 Unknown [id number] 2000 Unknown [id number] 1972 Unknown [id number] Social History Date Type Detail Facility [facility]: [facility]03[facility] Start: 01-03-2013 Tobacco use and exposure Smokeless tobacco non-user [facility] [employer] Phone: Start: 07-05-2021 Alcohol intake 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 Use a vacuum cone cleaner with a HEPA filter or a [...] Where can you learn more? Go to [email or web address] and sign in to your Symetis account. Enter L249 in the Search Health Information box to learn more about Managing Your Allergies: Care Instructions. If you do not have an account, please click on the Sign Up Now link. Current as of: April 05, 2020 Content Version: 13.2 [employer]. Care instructions adapted under license by [employer]. If you have questions about a medical condition or this instruction, always ask your healthcare professional. [employer] disclaims any warranty or liability for your [...] weeds. Allergies can be mild or severe. Cthq-ccc-icpcqnq allergy medicine may helpwith some symptoms. Read [...] or twice a week. Use a vacuum cone cleaner with a HEPA filter or a [...] Where can you learn more? Go to [email or web address] and sign in to your [employer]etis account. Enter J912 in the Search Health Information box to learn more about Seasonal Allergies: Care Instructions. If you do not have an account, please click on the Sign Up Now link. Current as of: April 05, 2020 Content Version: 13.2 [employer]. Care instructions adapted under license by [employer]. If you have questions about a medical condition or this instruction, always ask your healthcare professional. [employer] disclaims any warranty or liability for your use of this information. The following attachments cannot be sent through [employer] Everywhere.Allergies (Allergic Rhinitis): Managing (Turkish)documented in this encounter [employer] Phone: Evaluation note Note Date & Type Note Facility Evaluation note Diagnosis Shortness of breath- Primary Seasonal allergies Allergic rhinitis, cause unspecified documented in this encounter [employer] Phone: Summary Purpose Family History No Family History Records FoundNo Family History Records FoundNo Family History Records Found Advance Directives No Advanced Directives Records FoundDocuments on File Type Date Recorded Patient Psychology Physician Expl anation ACP-Advance Directive ACP-Power of Laminator Preforms Additional Source Comments INFORMATION SOURCE (unrecogn ized section and content) DATE CREATED AUTHOR 03/02/2020 Keyur Sand[facility] DATE CREATED AUTHOR AUTHOR'S ORGANIZ ATION 07/07/2021 [facility] DATE CREATED AUTHOR AUTHOR'S ORGANIZ ATION 04/03/2023 [facility] EPIC Reason for Visit (unrecogniz ed section and [...] Care Teams (unrecognized sec tion and content) Recreation Establishment Manager Relationship Specialty Start Date End Date Kadie Bird MD [address] [place] [address] PCP - General 03/14/16 FOR [...] BE BASED ON THE PRIMARY CLINICAL RECORDS. [facility]. provides no warranty or guarantee of the accuracy or completeness of information in this document.
== END 2023-07-18 08:33 | disposition home or self-care (01) ==
LOC: NOMS 08:32
PROVIDERS: Visit Provider Obstetrics & Gynecology
DX: Z34.91 Encounter for supervision of normal pregnancy, unspecified, first trimester (principal); Z3A.10 10 weeks gestation of pregnancy; N92.6 Irregular menstruation, unspecified
CPT/HCPCS: 76817

== ENCOUNTER 2023-08-19 09:28 | Outpatient (OUT) | payer BC, SELFPAY ==
--- OUTSIDE RECORDS SUMMARY | 2023-08-19 09:44 | XMS_ITS | CCD ---
Author Organization [facility] Inform ion Partnership [facility] Care Team Providers Care Manager Poker Name Role Phone Kadie Bird MD Primary [...] Range Facil ity Registrationon 03-01-2020 Registration [id number] #1.00CD:127 [facility] [place] 02-29-2020 Consent [id number]#1 .00CD:127 [facility] In office Testingon 02-28-19 21 In office Testing [id number]# 1.00CD:127 [facility] [place] 11-12-2019 Consent [id number]# 1.00CD:127 [facility] In office Testingon 11-12-19 20 In office Testing [id number]# 1.00CD:127 [facility] Vital Signs Date Time Vital Sign Value Performing Clinician Faci lity 07-05-2021 22:45-0400 Body temperature 98.6 [degF] Lizzy Pyle MD Work Phone: [facility] 07-05-2021 22:45-0400 Body weight 56.56 kg Lizzy Pyle MD Work Phone: [facility] 07-05-2021 22:45-0400 Diastolic blood pressure 90 mm[Hg] Lizzy Pyle MD Work Phone: [facility] 07-05-2021 22:45-0400 Heart rate 97 /min Lizzy Pyle MD Work Phone: [facility] 07-05-2021 22:45-0400 Respiratory rate 16 /min Lizzy Pyle MD Work Phone: [facility] 07-05-2021 22:45-0400 SaO2% (BldA) [Mass fraction] 96 % Lizzy Pyle MD Work Phone: [facility] 07-05-2021 22:45-0400 Systolic blood pressure 126 mm[Hg] Lizzy Pyle MD Work Phone: [facility] Encounters Encounter Date Encounter Type Care Provider Facility Start: 07-18-2023 End: 07-18-2023 ambulatory LILIAN MELISSA Not Available Start: 04-02-2023 End: 04-02-2023 ambulatory LILIAN MELISSA Not Available Start: 07-06-2021 End: 07-06-2021 Emergency department patient visit KADIE BIRD [facility] Start: 07-05-2021 End: 07-05-2021 Emergency department patient visit Lizzy Pyle MD Work Phone: [facility] ED Comment on above: Shortness of breath (Primary Dx); Seasonal allergies Plan of Treatment Date Care Activity Detail Author Start: 10-25-2021 Influenza vaccination Flu vaccine (S yodit Ended) [facility] Start: 11-11-2019 DTaP/Tdap/Td vaccine (1 - Tdap) DTaP/Tdap/Td vaccine (1 - Tdap) [facility] Start: 2018 Hepatitis C screening Hepatitis C sc reen [facility] Start: 2016 Screening for Chlamy rupa trachomatis Chlamydia screen [facility] Start: 11-11-2015 HIV screening HIV screen [facility] Start: 2012 Depression Screen Depression Screen [facility] Start: 11-11-2011 HPV vaccine (1 - 2-d ose series) HPV vaccine (1 - 2-dose series) [facility] Start: 2005 COVID-19 Vaccine (1) COVID-19 Vaccin e (1) [facility] Start: 2001 Varicella vaccine (1 of 2 - 2-dose childhood series) Varicella vaccine (1 of 2 - 2-dose childhood series) [facility] Payers Date Payer Category Payer Unknown [id number] 2014 Unknown [id number] 2000 Unknown [id number] [id number] [id number] 2000 Unknown [id number] [id number] [id number] 1972 Unknown [id number] [id number] [id number] Social History Date Type Detail Facility Start: 01-03-2013 Tobacco smoking stat [facility] Never smoked tobacco 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 Use a vacuum service line bus cleaner with a HEPA filter or a [...] Where can you learn more? Go to [email or web address] and sign in to your Torrential account. Enter L249 in the Search Health Information box to learn more about Managing Your Allergies: Care Instructions. If you do not have an account, please click on the Sign Up Now link. Current as of: April 05, 2020 Content Version: 13.2 [employer]pocket [employer]. Care instructions adapted under license by [employer]. If you have questions about a medical condition or this instruction, always ask your healthcare professional. [employer] disclaims any warranty or liability for your [...] weeds. Allergies can be mild or severe. Talm-soc-dzvazjk allergy medicine may helpwith some symptoms. Read [...] or twice a week. Use a vacuum service line bus cleaner with a HEPA filter or a [...] Where can you learn more? Go to [email or web address] and sign in to your Torrential account. Enter J912 in the Search Health Information box to learn more about Seasonal Allergies: Care Instructions. If you do not have an account, please click on the Sign Up Now link. Current as of: April 05, 2020 Content Version: 13.2 [employer]. Care instructions adapted under license by [employer]. If you have questions about a medical condition or this instruction, always ask your healthcare professional. [employer] disclaims any warranty or liability for your use of this information. The following attachments cannot be sent through Care Everywhere.Allergies (Allergic Rhinitis): Managing (Slovenian)documented in this encounter [employer] Phone: Evaluation note Note Date & Type Note Facility Evaluation note Diagnosis Shortness of breath- Primary Seasonal allergies Allergic rhinitis, cause unspecified documented in this encounter [employer] Phone: Summary Purpose Family History No Family History Records FoundNo Family History Records FoundNo Family History Records Found Advance Directives No Advanced Directives Records FoundDocuments on File Type Date Recorded Patient Utilization Supervisor Expl anation ACP-Advance Directive ACP-Power of Color Shop Helper Additional Source Comments INFORMATION SOURCE (unrecogn ized section and content) DATE CREATED AUTHOR 03/02/[address] [facility] DATE CREATED AUTHOR AUTHOR'S ORGANIZ ATION 07/07/2021 [facility] DATE CREATED AUTHOR AUTHOR'S ORGANIZ ATION 07/20/2023 [facility] Specialists EPIC Reason for Visit (unrecogniz ed [...] Care Teams (unrecognized sec tion and content) Manager Poker Relationship Specialty Start Date End Date Kadie Bird MD [address] [place] [address] PCP - General 03/14/16 FOR [...] BE BASED ON THE PRIMARY CLINICAL RECORDS. [facility]. provides no warranty or guarantee of the accuracy or completeness of information in this document.
[2023-08-21 02:08] LABS: AFP Value 17.5 ng/mL (.); Gest. Age on Collection Date 15.6 weeks (.); Insulin Dep Diabetes No (.); Maternal Age At EDD 23.2 yr (.); OSBR Risk 1 IN 10000 (.); Results Report (.)
== END 2023-08-19 09:29 | disposition home or self-care (01) ==
LOC: LAB 09:29
PROVIDERS: Visit Provider Obstetrics & Gynecology
DX: Z36.1 Encounter for antenatal screening for raised alphafetoprotein level (principal)
CPT/HCPCS: 36415; 82105

== ENCOUNTER 2023-08-19 19:49 | Outpatient (REF) | payer BC, SELFPAY ==
--- OUTSIDE RECORDS SUMMARY | 2023-08-19 19:53 | XMS_ITS | CCD ---
Author Organization [facility] Inform ion Partnership [facility] Care Team Providers Care Credit Control Officer Name Role Phone Kadie Bird MD Primary [...] Range Facil ity Registrationon 03-01-2020 Registration [id number] #1.00CD:127 [facility] [place] 02-29-2020 Consent [id number]#1 .00CD:127 [facility] In office Testingon 02-28-19 21 In office Testing [id number]. [id number]# 1.00CD:127 [facility] [place] 11-12-2019 Consent [id number]. [id number]# 1.00CD:127 [facility] In office Testingon 11-12-19 20 In office Testing [id number]. [id number]# 1.00CD:127 [facility] Vital Signs Date Time Vital Sign Value Performing Clinician Faci lity 07-05-2021 22:45-0400 Body temperature 98.6 [degF] Lizzy Pyle MD Work Phone: [facility] 07-05-2021 22:45-0400 Body weight 56.56 kg Lizzy Pyle MD Work Phone: [facility] 07-05-2021 22:45-0400 Diastolic blood pressure 90 mm[Hg] Lizzy Pyle MD Work Phone: [facility] 07-05-2021 22:45-0400 Heart rate 97 /min Lizzy Pyle MD Work Phone: [facility] 07-05-2021 22:45-0400 Respiratory rate 16 /min Lizzy Pyle MD Work Phone: [facility] 07-05-2021 22:45-0400 SaO2% (BldA) [Mass fraction] 96 % Lizzy Pyle MD Work Phone: [facility] 07-05-2021 22:45-0400 Systolic blood pressure 126 mm[Hg] Lizzy Pyle MD Work Phone: [facility] Encounters Encounter Date Encounter Type Care Provider Facility Start: 07-18-2023 End: 07-18-2023 ambulatory LILIAN MELISSA Not Available Start: 04-02-2023 End: 04-02-2023 ambulatory LILIAN MELISSA Not Available Start: 07-06-2021 End: 07-06-2021 Emergency department patient visit KADIE BIRD [facility] Start: 07-05-2021 End: 07-05-2021 Emergency department patient visit Lizzy Pyle MD Work Phone: [facility] ED Comment on above: Shortness of breath (Primary Dx); Seasonal allergies Plan of Treatment Date Care Activity Detail Author Start: 10-25-2021 Influenza vaccination Flu vaccine (S yodit Ended) [facility] Start: 11-11-2019 DTaP/Tdap/Td vaccine (1 - Tdap) DTaP/Tdap/Td vaccine (1 - Tdap) [facility] Start: 2018 Hepatitis C screening Hepatitis C sc reen [facility] Start: 2016 Screening for Chlamy rupa trachomatis Chlamydia screen [facility] Start: 11-11-2015 HIV screening HIV screen [facility] Start: 2012 Depression Screen Depression Screen [facility] Start: 11-11-2011 HPV vaccine (1 - 2-d ose series) HPV vaccine (1 - 2-dose series) [facility] Start: 2005 COVID-19 Vaccine (1) COVID-19 Vaccin e (1) [facility] Start: 2001 Varicella vaccine (1 of 2 - 2-dose childhood series) Varicella vaccine (1 of 2 - 2-dose childhood series) [facility] Payers Date Payer Category Payer Unknown [id number] 2014 Unknown [id number] 2000 Unknown [id number] [id number] [id number] 2000 Unknown [id number] [id number] [id number] 1972 Unknown [id number] 2.16.8 [id number] Social History Date Type Detail Facility Start: 01-03-2013 Tobacco smoking stat [facility] Never smoked tobacco [facility] Start: 01-03-2013 Tobacco use and exposure Smokeless tobacco non-user [employer] Phone: Start: 07-05-2021 Alcohol intake Current non-dr partner of alcohol (finding) [employer] Phone: Start: 2000 Sex Assigned At Not on file [employer] Phone: Start: 06-25-2021 End: 07-06-2021 Exposure to SARS-CoV-2 (event) Not sure [employer] Phone: Hospital Discharge instructions 07-05-2021 InstructionsAttachments Note [...] pollen counts are high. Use a vacuum lamp cleaner with a HEPA filter or a [...] Where can you learn more? Go to [email or web address] and sign in to your CTMG account. Enter L249 in the Search Health Information box to learn more about Managing Your Allergies: Care Instructions. If you do not have an account, please click on the Sign Up Now link. Current as of: April 05, 2020 Content Version: 13.2 [employer]iant. Care instructions adapted under license by [employer]. If you have questions about a medical condition or this instruction, always ask your healthcare professional. [employer] disclaims any warranty or liability for your [...] weeds. Allergies can be mild or severe. Myaj-efl-fwuljpg allergy medicine may helpwith some symptoms. Read [...] or twice a week. Use a vacuum lamp cleaner with a HEPA filter or a [...] Where can you learn more? Go to [email or web address] and sign in to your [employer]MG account. Enter J912 in the Search Health Information box to learn more about Seasonal Allergies: Care Instructions. If you do not have an account, please click on the Sign Up Now link. Current as of: April 05, 2020 Content Version: 13.2 [employer]. Care instructions adapted under license by [employer]. If you have questions about a medical condition or this instruction, always ask your healthcare professional. [employer] disclaims any warranty or liability for your use of this information. 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 Creative Director Additional Source Comments INFORMATION SOURCE (unrecogn ized section and content) DATE CREATED AUTHOR 03/02/2020 [employer] [facility] DATE CREATED AUTHOR AUTHOR'S ORGANIZ ATION 07/07/2021 [facility] DATE CREATED AUTHOR AUTHOR'S ORGANIZ ATION 07/20/2023 [facility] Specialists EPIC Reason for Visit (unrecogniz ed [...] Care Teams (unrecognized sec tion and content) Credit Control Officer Relationship Specialty Start Date End Date Kadie Bird MD [address] [place] [address] PCP - General 03/14/16 FOR [...] BE BASED ON THE PRIMARY CLINICAL RECORDS. [facility]. provides no warranty or guarantee of the accuracy or completeness of information in this document.
[2023-08-22 15:10] LABS: Age Gdln ACOG Testing Note (.); IGP, rfx Aptima HPV ASCU Note (.)
== END 2023-08-19 19:50 | disposition home or self-care (01) ==
LOC: LAB 19:49
PROVIDERS: Visit Provider Obstetrics & Gynecology
DX: Z01.419 Encounter for gynecological examination (general) (routine) without abnormal findings (principal)
CPT/HCPCS: 36415; 82105; 88175

== ENCOUNTER 2023-09-18 09:10 | Outpatient (OUT) | payer OTHER, SELFPAY ==
--- OUTSIDE RECORDS SUMMARY | 2023-09-18 09:20 | XMS_ITS | CCD ---
Author Organization [facility] Partnership 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 [id number]# 1.00CD:127 Normal [facility] [place] 11-12-2019 Consent [id number]. [id number]# 1.00CD:127 [facility] In office Testingon 11-12-19 20 In office Testing [id number]. [id number]# 1.00CD:127 Normal [facility] Vital Signs Date Time Vital Sign Value Performing Clinician Branden lityogi 07-05-2021 22:45-0400 Body temperature 98.6 [degF] Lizzy Pyle MD Work Phone: [facility] 07-05-2021 22:45-0400 Body weight 56.56 kg Lizzy Pyle MD Work Phone: [facility] 07-05-2021 22:45-0400 Diastolic blood pressure 90 mm[Hg] Lizzy Pyle MD Work Phone: [facility] 07-05-2021 22:45-0400 Heart rate 97 /min Lizzy Pyle MD Work Phone: [facility] 07-05-2021 22:45-0400 Respiratory rate 16 /min Lizzy Pyle MD Work Phone: [facility] 07-05-2021 22:45-0400 SaO2% (BldA) [Mass fraction] 96 % Lizzy Pyle MD Work Phone: [facility] 07-05-2021 22:45-0400 Systolic blood pressure 126 mm[Hg] Lizzy Pyle MD Work Phone: [facility] Encounters Encounter Date Encounter Type Care Provider Facility Start: 08-19-2023 End: 08-19-2023 ambulatory LILIAN MELISAS Not Available Start: 07-18-2023 End: 07-18-2023 ambulatory LILIAN MELISSA Not Available Start: 04-02-2023 End: 04-02-2023 ambulatory LILIAN ROGERSZIO Not Available Start: 07-06-2021 End: 07-06-2021 Emergency department patient visit KADIE BIRD [facility] Start: 07-05-2021 End: 07-05-2021 Emergency department patient visit Lizzy Pyle MD Work Phone: [facility] ED Comment on above: Shortness of breath (Primary Dx); Seasonal allergies Plan of Treatment Date Care Activity Detail Author Start: 10-25-2021 Influenza vaccination Flu vaccine (S yodit Ended) [facility] Start: 11-11-2019 DTaP/Tdap/Td vaccine (1 - Tdap) DTaP/Tdap/Td vaccine (1 - Tdap) [facility] Start: 2018 Hepatitis C screening Hepatitis C sc reen [facility] Start: 2016 Screening for Chlamy rupa trachomatis Chlamydia screen [facility] Start: 11-11-2015 HIV screening HIV screen [facility] Start: 2012 Depression Screen Depression Screen [facility] Start: 11-11-2011 HPV vaccine (1 - 2-d ose series) HPV vaccine (1 - 2-dose series) [facility] Start: 2005 COVID-19 Vaccine (1) COVID-19 Vaccin e (1) [facility] Start: 2001 Varicella vaccine (1 of 2 - 2-dose childhood series) Varicella vaccine (1 of 2 - 2-dose childhood series) [facility] Payers Date Payer Category Payer Unknown [id number] 2014 Unknown [id number] 2000 Unknown [id number] 2.16.84 [id number] 2000 Unknown [id number] 2.16.84 [id number] 2000 Unknown [id number] 2.16.84 [id number] 1972 Unknown [id number] 2.16.8 [id number] Social History Date Type Detail Facility Start: 01-03-2013 Tobacco smoking stat [facility] Never smoked tobacco [employer] Start: 01-03-2013 Tobacco use and exposure Smokeless tobacco non-user [employer] Phone: Start: 07-05-2021 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 Use a vacuum dry cleaner with a HEPA filter or a [...] Where can you learn more? Go to [email or web address] and sign in to your beatlab account. Enter L249 in the Search Health Information box to learn more about Managing Your Allergies: Care Instructions. If you do not have an account, please click on the Sign Up Now link. Current as of: April 05, 2020 Content Version: 13.2 [employer]. Care instructions adapted under license by [employer]. If you have questions about a medical condition or this instruction, always ask your healthcare professional. [employer] disclaims any warranty or liability for your [...] weeds. Allergies can be mild or severe. Oxox-tgd-hpkfujt allergy medicine may helpwith some symptoms. Read [...] or twice a week. Use a vacuum dry cleaner with a HEPA filter or a [...] Where can you learn more? Go to [email or web address] and sign in to your beatlab account. Enter J912 in the Search Health Information box to learn more about Seasonal Allergies: Care Instructions. If you do not have an account, please click on the Sign Up Now link. Current as of: April 05, 2020 Content Version: 13.2 [employer]. Care instructions adapted under license by [employer]. If you have questions about a medical condition or this instruction, always ask your healthcare professional. [email or web address] disclaims any warranty or liability for your use of this information. 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 ACP-Advance Directive ACP-Power of Bottle Sorter Additional Source Comments INFORMATION SOURCE (unrecogn ized section and content) DATE CREATED AUTHOR [facility]/02/2020 [facility] DATE CREATED AUTHOR AUTHOR'S ORGANIZ ATION 07/07/2021 [facility] Craig Avendaño [facility] DATE CREATED AUTHOR AUTHOR'S ORGANIZ ATION 08/20/2023 [facility] dicfl Specialists EPIC Reason for Visit (unrecogniz ed [...] Care Teams (unrecognized sec tion and content) Engineering Job Titles Relationship Specialty Start Date End Date Kadie Bird MD [address] [place] [address] PCP - General 03/14/16 FOR RECORDS PERTAINING [...] BE BASED ON THE PRIMARY CLINICAL RECORDS. [facility]. provides no warranty or guarantee of the accuracy or completeness of information in this document.
[2023-09-18 09:37] LABS: Basophils Percent Auto 0.4 % (0.2-2.0); Eosinophils Absolute Auto 0.4 10^3/uL (0.0-0.7); Eosinophils Percent Auto 3.2 % (0.9-7.0); Hematocrit 38.7 % (36.0-48.0); Immature Granulocytes Abs Auto 0.04 10^3/uL (0.00-0.03); Immature Granulocytes Pct Auto 0.4 % (0.0-0.5); Lymphocytes Absolute Auto 1.4 10^3/uL (1.2-3.8); Lymphocytes Percent Auto 12.6 % (20.5-60.0); Mean Corpuscular HGB Conc 33.6 g/dL (29.9-35.2); Mean Corpuscular Hemoglobin 30.6 pg (26.7-34.0); Mean Corpuscular Volume 91.1 fL (81.0-99.0); Mean Platelet Volume 11.8 fL (9.5-13.5); Monocytes Absolute Auto 0.6 10^3/uL (0.3-0.8); Monocytes Percent Auto 5.6 % (1.7-12.0); Neutrophils Absolute Auto 8.7 10^3/uL (1.4-6.5); Neutrophils Percent Auto 77.8 % (43.0-75.0); Platelet Count 155 10^3/uL (150-450); Red Blood Count 4.25 10^6/uL (4.20-5.40); Red Cell Distribution Width 13.2 % (11.0-15.0); White Blood Count 11.2 10^3/uL (4.0-11.0)
[2023-09-18 10:33] LABS: Estimated Average Glucose 85 mg/dL; Glycohemoglobin A1C 4.6 % (4.5-6.2)
[2023-09-19 06:10] LABS: HBsAg Screen Negative (Negative); HCV Ab Non Reactive (Non Reactive); HIV Ab/p24 Ag Screen Non Reactive (Non Reactive); Rubella Antibodies, IgG 1.34 index (Immune >0.99)
[2023-09-19 12:10] LABS: Rapid Plasma Reagin, Quant Non Reactive titer (NonRea<1:1)
[2023-09-21 01:06] LABS: AFP Value 49.7 ng/mL (.); Gest. Age on Collection Date 19.9 weeks (.); Insulin Dep Diabetes No (.); Maternal Age At EDD 23.2 yr (.); OSBR Risk 1 IN 10000 (.); Results Report (.)
== END 2023-09-18 09:11 | disposition home or self-care (01) ==
LOC: LAB 09:15
PROVIDERS: Visit Provider Obstetrics & Gynecology
DX: Z34.92 Encounter for supervision of normal pregnancy, unspecified, second trimester (principal); Z36.1 Encounter for antenatal screening for raised alphafetoprotein level; N92.6 Irregular menstruation, unspecified
CPT/HCPCS: 36415; 82105; 83036; 85025; 86592; 86762; 86803; 86850; 86900; 86901; 87086; 87340; 87389

== ENCOUNTER 2023-09-24 07:00 | Outpatient (OUT) | payer OTHER, SELFPAY ==
--- OUTSIDE RECORDS SUMMARY | 2023-09-24 07:02 | XMS_ITS | CCD ---
Author Organization 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# 1.00CD:127 Normal [facility] [place] 11-12-2019 Consent [id number]# 1.00CD:127 [facility] In office Testingon 11-12-19 20 In office Testing [id number]# 1.00CD:127 Normal [facility] Vital Signs Date Time Vital Sign Value Performing Clinician Branden lityogi 07-05-2021 22:45-0400 Body temperature 98.6 [degF] Lizzy Pyle MD Work Phone: [facility] 07-05-2021 22:45-0400 Body weight 56.56 kg Lizzy Pyle MD Work Phone: [facility] 07-05-2021 22:45-0400 Diastolic blood pressure 90 mm[Hg] Lizzy Pyle MD Work Phone: [facility] 07-05-2021 22:45-0400 Heart rate 97 /min Lizzy Pyle MD Work Phone: [facility] 07-05-2021 22:45-0400 Respiratory rate 16 /min Lizzy Pyle MD Work Phone: [facility] 07-05-2021 22:45-0400 SaO2% (BldA) [Mass fraction] 96 % Lizzy Pyle MD Work Phone: [facility] 07-05-2021 22:45-0400 Systolic blood pressure 126 mm[Hg] Lizzy Pyle MD Work Phone: [facility] Encounters Encounter Date Encounter Type Care Provider Facility Start: 08-19-2023 End: 08-19-2023 ambulatory LILIAN MELISSA Not Available Start: 07-18-2023 End: 07-18-2023 ambulatory LILIAN MELISSA Not Available Start: 04-02-2023 End: 04-02-2023 ambulatory LILIAN ROGERSZIO Not Available Start: 07-06-2021 End: 07-06-2021 Emergency department patient visit [facility] Start: 07-05-2021 End: 07-05-2021 Emergency department patient visit Lizzy Pyle MD Work Phone: [facility] Comment on above: Shortness of breath (Primary Dx); Seasonal allergies Plan of Treatment Date Care Activity Detail Author Start: 10-25-2021 Influenza vaccination Flu vaccine (S yodti Ended) [facility] Start: 11-11-2019 DTaP/Tdap/Td vaccine (1 - Tdap) DTaP/Tdap/Td vaccine (1 - Tdap) [facility] Start: 2018 Hepatitis C screening Hepatitis C sc reen [facility] Start: 2016 Screening for Chlamy rupa trachomatis Chlamydia screen [facility] Start: 11-11-2015 HIV screening HIV screen [facility] Start: 2012 Depression Screen Depression Screen [facility] Start: 11-11-2011 HPV vaccine (1 - 2-d ose series) HPV vaccine (1 - 2-dose series) [facility] Start: 2005 COVID-19 Vaccine (1) COVID-19 Vaccin e (1) [facility] Start: 2001 Varicella vaccine (1 of 2 - 2-dose childhood series) Varicella vaccine (1 of 2 - 2-dose childhood series) [facility] Payers Date Payer Category Payer Unknown [id number] 2014 Unknown [id number] 2000 Unknown [id number] [id number] 2000 Unknown [id number] [id number] [id number] 2000 Unknown [id number] 2.16.84 [id number] 1972 Unknown [id number] [id number] Social History Date Type Detail Facility Start: 01-03-2013 Tobacco smoking stat [facility] Never smoked tobacco [employer] Start: 01-03-2013 Tobacco use and exposure Smokeless tobacco non-user [employer] Phone: Start: 07-05-2021 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 Use a vacuum hide cleaner with a HEPA filter or a [...] Where can you learn more? Go to [email or web address] and sign in to your [email or web address] account. Enter L249 in the Search Health Information box to learn more about Managing Your Allergies: Care Instructions. If you do not have an account, please click on the Sign Up Now link. Current as of: April 05, 2020 Content Version: 13.2 [employer]. Care instructions adapted under license by [employer]. If you have questions about a medical condition or this instruction, always ask your healthcare professional. [employer] disclaims any warranty or liability for your [...] weeds. Allergies can be mild or severe. Aabc-jbu-mhapdos allergy medicine may helpwith some symptoms. Read [...] or twice a week. Use a vacuum hide cleaner with a HEPA filter or a [...] Where can you learn more? Go to [email or web address] and sign in to your [employer] account. Enter J912 in the Search Health Information box to learn more about Seasonal Allergies: Care Instructions. If you do not have an account, please click on the Sign Up Now link. Current as of: April 05, 2020 Content Version: 13.2 [employer]. Care instructions adapted under license by [employer]. If you have questions about a medical condition or this instruction, always ask your healthcare professional. [employer] disclaims any warranty or liability for your use of this information. The following attachments cannot be sent through Care Everywhere.Allergies (Allergic Rhinitis): Managing (Uzbek)documented in this encounter [employer] Phone: Evaluation note Note Date & Type Note Facility Evaluation note Diagnosis Shortness of breath- Primary Seasonal allergies Allergic rhinitis, cause unspecified documented in this encounter [employer] Phone: Summary Purpose Family History No Family History Records FoundNo Family History Records FoundNo Family History Records Found Advance Directives No Advanced Directives Records FoundDocuments on File 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 Date 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 ACP-Advance Directive ACP-Power of Bucket Pusher Additional Source Comments INFORMATION SOURCE (unrecogn ized section and content) DATE CREATED AUTHOR 03/02/2020 [facility] [facility] DATE CREATED AUTHOR AUTHOR'S ORGANIZ ATION 07/07/2021 [facility] Craig Avendaño [facility] DATE CREATED AUTHOR AUTHOR'S ORGANIZ ATION 08/20/2023 [facility] EPIC Reason for Visit (unrecogniz ed [...] Care Teams (unrecognized sec tion and content) Typesetting Machine 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 [facility] [employer] [facility]. provides no warranty or guarantee of the accuracy or completeness of information in this document.
--- NOTE | 2023-09-24 07:03 | US_ITS ---
[address] [address] Patient Name: BEN CHANCE MRN: [id number] date: 2000 Sex: F Assigned Patient Location: US Current Patient Location: US Accession/Order Number: [id number] Exam Date: 09/24/2023 07:04 Report Date: 09/24/2023 08:26 At the request of: LILIAN TORRES Procedure: US OB anatomy EXAMINATION: US OB anatomy, US OB cervical length HISTORY: Encounter for anatomic survey Z36.89 COMPARISON: No relevant comparison available. TECHNIQUE: Transabdominal sonographic examination was performed for obstetrical and evaluation. FINDINGS: Number: 1 Heart Rate: 147.96 bpm H.B. /min position: Cephalic presentation, longitudinal lie Amniotic Fluid Volume: Subjectively normal Placental Location: Posterior, placental edge is 1.1 cm from the internal os. Grade 0. Cervix Length: 5.6 cm , closed Normal anatomy: Lateral ventricles, cerebellum, posterior fossa, nose, lips, orbits, four-chamber heart, RVOT, LVOT, diaphragm, stomach, kidneys, abdominal cord insertion, bladder, umbilical arteries, three-vessel cord, spine, extremities Other: 5 mm area of anechoic echogenicity cervix, nabothian cyst favored BIOMETRY: BPD: 4.69 cm; 20 weeks 1 day 27.50 % HC: 17.85 cm; 20 weeks 2 days; 23.60 % AC: 14.63 cm; 19 weeks 6 days ; 19.80 % FL: 2.94 cm; 19 weeks 0 days; 3.60 % EFW:302.83 g; 5.80 %, 11 ounces FL/AC: 20.07 FL/BPD: 62.60 HC/AC: 1.22 GESTATIONAL AGE: Age by EDC: 20 weeks 5 days MILLI by EDC: 2024-02-06 Age by current US: 19 weeks 6 days MILLI by current US: 2024-02-12 US/US OB anatomy IMPRESSION: Marginal placenta previa, the placental edge is 1.1 cm from the internal os Otherwise normal anatomy scan Closed cervix measuring 5.6 cm length *Reference: AIUM Practice Guideline for the performance of Obstetric Ultrasound Examinations, November 24, 2006. Electronically authenticated by: GAVIN GODINEZ Date: 09/24/2023 08:26
--- NOTE | 2023-09-24 07:03 | US_ITS ---
[address] [address] Patient Name: BEN CHANCE MRN: [id number] date: 2000 Sex: F Assigned Patient Location: US Current Patient Location: US Accession/Order Number: [id number] Exam Date: 09/24/2023 07:04 Report Date: 09/24/2023 08:26 At the request of: LILIAN TORRES Procedure: US OB cervical length EXAMINATION: US OB anatomy, US OB cervical length HISTORY: Encounter for anatomic survey Z36.89 COMPARISON: No relevant comparison available. TECHNIQUE: Transabdominal sonographic examination was performed for obstetrical and evaluation. FINDINGS: Number: 1 Heart Rate: 147.96 bpm H.B. /min position: Cephalic presentation, longitudinal lie Amniotic Fluid Volume: Subjectively normal Placental Location: Posterior, placental edge is 1.1 cm from the internal os. Grade 0. Cervix Length: 5.6 cm , closed Normal anatomy: Lateral ventricles, cerebellum, posterior fossa, nose, lips, orbits, four-chamber heart, RVOT, LVOT, diaphragm, stomach, kidneys, abdominal cord insertion, bladder, umbilical arteries, three-vessel cord, spine, extremities Other: 5 mm area of anechoic echogenicity cervix, nabothian cyst favored BIOMETRY: BPD: 4.69 cm; 20 weeks 1 day 27.50 % HC: 17.85 cm; 20 weeks 2 days; 23.60 % AC: 14.63 cm; 19 weeks 6 days ; 19.80 % FL: 2.94 cm; 19 weeks 0 days; 3.60 % EFW:302.83 g; 5.80 %, 11 ounces FL/AC: 20.07 FL/BPD: 62.60 HC/AC: 1.22 GESTATIONAL AGE: Age by EDC: 20 weeks 5 days MILLI by EDC: 2024-02-06 Age by current US: 19 weeks 6 days MILLI by current US: 2024-02-12 US/US OB cervical length IMPRESSION: Marginal placenta previa, the placental edge is 1.1 cm from the internal os Otherwise normal anatomy scan Closed cervix measuring 5.6 cm length *Reference: AIUM Practice Guideline for the performance of Obstetric Ultrasound Examinations, November 24, 2006. Electronically authenticated by: GAVIN GODINEZ Date: 09/24/2023 08:26
== END 2023-09-24 07:01 | disposition home or self-care (01) ==
LOC: US 07:00
PROVIDERS: Visit Provider Obstetrics & Gynecology
DX: Z36.89 Encounter for other specified antenatal screening (principal); O44.22 Partial placenta previa NOS or without hemorrhage, second trimester; Z3A.19 19 weeks gestation of pregnancy
CPT/HCPCS: 76805; 76817

== ENCOUNTER 2023-10-16 08:01 | Outpatient (OUT) | payer OTHER, SELFPAY ==
--- NOTE | 2023-10-16 08:03 | US_ITS ---
The [address] [address] Patient Name: BEN CHANCE MRN: [id number] date: 2000 Sex: F Assigned Patient Location: [facility] Current Patient Location: [facility] Accession/Order Number: [id number] Exam Date: 10/16/2023 08:04 Report Date: 10/16/2023 09:23 At the request of: LILINA TORRES Procedure: US OB cervical length EXAMINATION: US OB placenta, US OB cervical length HISTORY: LOW LYING PLACENTA COMPARISON: Ultrasound OB Anatomy 09/24/2023 FINDINGS: PLACENTA: Posterior with lower margin 5.0 cm from os. No abruption or subchorionic hematoma. CERVIX LENGTH: 3.8 cm; closed. HEART RATE: Not recorded. OTHER: None. US/US OB cervical length IMPRESSION: 1. Posterior placenta which is no longer low-lying. Electronically authenticated by: BARRY SHELDON Date: 10/16/2023 09:23
--- OUTSIDE RECORDS SUMMARY | 2023-10-16 08:03 | XMS_ITS | CCD ---
Author Organization [facility] Care Team Providers Care Geographic Information Systems Engineer Name Role Phone Kadie Bird MD Primary [...] Range Facil ity Registrationon 03-01-2020 Registration [id number] #1.00CD:127 Normal [facility] [place] 02-29-2020 Consent [id number]#1 .00CD:127 Normal [facility] In office Testingon 02-28-19 21 In office Testing [id number]# 1.00CD:127 Normal [facility] [place] 11-12-2019 Consent [id number]# 1.00CD:127 [facility] In office Testingon 11-12-19 20 In office Testing [id number]# 1.00CD:127 Normal [facility] Vital Signs Date Time Vital Sign Value Performing Clinician Branden lityogi 07-05-2021 22:45-0400 Body temperature 98.6 [degF] Lizzy Pyle MD Work Phone: [facility] 07-05-2021 22:45-0400 Body weight 56.56 kg Lizzy Pyle MD Work Phone: [facility] 07-05-2021 22:45-0400 Diastolic blood pressure 90 mm[Hg] Lizzy Pyle MD Work Phone: [facility] 07-05-2021 22:45-0400 Heart rate 97 /min Lizzy Pyle MD Work Phone: [facility] 07-05-2021 22:45-0400 Respiratory rate 16 /min Lizzy Pyle MD Work Phone: [facility] 07-05-2021 22:45-0400 SaO2% (BldA) [Mass fraction] 96 % Lizzy Pyle MD Work Phone: [facility] 07-05-2021 22:45-0400 Systolic blood pressure 126 mm[Hg] Lizzy Pyle MD Work Phone: [facility] Encounters Encounter Date Encounter Type Care Provider Facility Start: 08-19-2023 End: 08-19-2023 ambulatory LILIAN MELISSA Not Available Start: 07-18-2023 End: 07-18-2023 ambulatory LILIAN MELISSA Not Available Start: 04-02-2023 End: 04-02-2023 ambulatory LILIAN ROGERSZIO Not Available Start: 07-06-2021 End: 07-06-2021 Emergency department patient visit KADIE BIRD [facility] Start: 07-05-2021 End: 07-05-2021 Emergency department patient visit Lizzy Pyle MD Work Phone: [facility] ED Comment on above: Shortness of breath (Primary Dx); Seasonal allergies Plan of Treatment Date Care Activity Detail Author Start: 10-25-2021 Influenza vaccination Flu vaccine (S yodit Ended) [facility] Start: 11-11-2019 DTaP/Tdap/Td vaccine (1 - Tdap) DTaP/Tdap/Td vaccine (1 - Tdap) [facility] Start: 2018 Hepatitis C screening Hepatitis C sc reen [facility] Start: 2016 Screening for Chlamy rupa trachomatis Chlamydia screen [facility] Start: 11-11-2015 HIV screening HIV screen [facility] Start: 2012 Depression Screen Depression Screen [facility] Start: 11-11-2011 HPV vaccine (1 - 2-d ose series) HPV vaccine (1 - 2-dose series) [facility] Start: 2005 COVID-19 Vaccine (1) COVID-19 Vaccin e (1) [facility] Start: 2001 Varicella vaccine (1 of 2 - 2-dose childhood series) Varicella vaccine (1 of 2 - 2-dose childhood series) [facility] Payers Date Payer Category Payer Unknown [id number] 2014 Unknown [id number] 2000 Unknown [id number] [id number] [id number] 2000 Unknown [id number] [id number] [id number] 2000 Unknown [id number] 2.16.84 [id number] 1972 Unknown [id number] 2.16.8 [id number] Social History Date Type Detail Facility Start: 01-03-2013 Tobacco smoking stat [facility] Never smoked tobacco [employer] Start: 01-03-2013 Tobacco use and exposure Smokeless tobacco non-user [employer] Phone: Start: 07-05-2021 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 Use a vacuum area cleaner with a HEPA filter or a [...] Where can you learn more? Go to [email or web address] and sign in to your [employer] account. Enter L249 in the Search Health Information box to learn more about Managing Your Allergies: Care Instructions. If you do not have an account, please click on the Sign Up Now link. Current as of: April 05, 2020 Content Version: 13.2 [employer]. Care instructions adapted under license by [employer]. If you have questions about a medical condition or this instruction, always ask your healthcare professional. [employer] disclaims any warranty or liability for your [...] weeds. Allergies can be mild or severe. Feye-ezo-txzejop allergy medicine may helpwith some symptoms. Read [...] or twice a week. Use a vacuum area cleaner with a HEPA filter or a [...] Where can you learn more? Go to [email or web address] and sign in to your [employer] account. Enter J912 in the Search Health Information box to learn more about Seasonal Allergies: Care Instructions. If you do not have an account, please click on the Sign Up Now link. Current as of: April 05, 2020 Content Version: 13.2 [employer]. Care instructions adapted under license by [employer]. If you have questions about a medical condition or this instruction, always ask your healthcare professional. [employer] disclaims any warranty or liability for your use of this information. 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 ACP-Advance Directive ACP-Power of Office Professionals Additional Source Comments INFORMATION SOURCE (unrecogn ized section and content) DATE CREATED AUTHOR 03/02/2020 [facility] DATE CREATED AUTHOR AUTHOR'S ORGANIZ ATION 07/07/2021 [facility] Craig Aevndaño [facility] DATE CREATED AUTHOR AUTHOR'S ORGANIZ ATION 08/20/2023 [facility] EPIC Reason for Visit (unrecogniz ed [...] Care Teams (unrecognized sec tion and content) Geographic Information Systems Engineer Relationship Specialty Start Date End Date Kadie Bird MD [address] [place] [address] PCP - General 03/14/16 FOR RECORDS PERTAINING [...] BE BASED ON THE PRIMARY CLINICAL RECORDS. [facility] [employer] [facility]. provides no warranty or guarantee of the accuracy or completeness of information in this document.
--- NOTE | 2023-10-16 08:04 | US_ITS ---
The [address] [address] Patient Name: BEN CHANCE MRN: [id number] date: 2000 Sex: F Assigned Patient Location: [facility] Current Patient Location: [facility] Accession/Order Number: [id number] Exam Date: 10/16/2023 08:04 Report Date: 10/16/2023 09:23 At the request of: LILIAN TORRES Procedure: US OB placenta EXAMINATION: US OB placenta, US OB cervical length HISTORY: LOW LYING PLACENTA COMPARISON: Ultrasound OB Anatomy 09/24/2023 FINDINGS: PLACENTA: Posterior with lower margin 5.0 cm from os. No abruption or subchorionic hematoma. CERVIX LENGTH: 3.8 cm; closed. HEART RATE: Not recorded. OTHER: None. US/US OB placenta IMPRESSION: 1. Posterior placenta which is no longer low-lying. Electronically authenticated by: BARRY SHELDON Date: 10/16/2023 09:23
== END 2023-10-16 08:02 | disposition home or self-care (01) ==
LOC: NOMS 08:01
PROVIDERS: Visit Provider Obstetrics & Gynecology
DX: O44.40 Low lying placenta NOS or without hemorrhage, unspecified trimester (principal)
CPT/HCPCS: 76815; 76817

== ENCOUNTER 2023-10-31 07:51 | Outpatient (OUT) | payer OTHER, SELFPAY ==
--- OUTSIDE RECORDS SUMMARY | 2023-10-31 08:04 | XMS_ITS | CCD ---
Author Organization [facility] Care Team Providers Care Chart Changer Name Role Phone Kadie Bird MD Primary Care Provider [phone] KADIE BIRD Primary Care Unavailable LIZZY PYLE Attending Unavailable LILIAN TORRES Attending Unavailable LILIAN TORRES Attending Unavailable RHETT BAUTISTA Attending Unavailable LILIAN TORRES Attending Unavailable Melanie GIRON Attending Unavailable Medications Current Medications Medication Drug [...] Results Test Name Value Interpretation Reference Range Facility Quantiferon-TB Plus (Client Incubated)on 10-22-2023 Gamma interferon background IA Qn (Bld) 0.00 International_Unit/ mL Invalid Interpretation Code [facility] Comment on above: Performed By: #### 1 [id number] #### [facility] [address] [place] [address] M. tuberculosis stim IFN-g by CD4+ CD8+ T-cells corrected for background Qn (Bld) 0.00 International_Unit/ mL Invalid Interpretation Code [facility] Comment on above: Performed By: #### 1 [id number] #### [facility] [address] [place] [address] M. tuberculosis stim IFN-g by CD4+ T-cells corrected for background Qn (Bld) 0.00 International_Unit/ mL Invalid Interpretation Code [facility] Comment on above: Performed By: #### 1 [id number] #### [facility] [address] [place] [address] M. tuberculosis stim IFN-g Ql (Bld) [Interp] Negative Invalid Interpretation Code Negative [facility] Comment on above: Result Comment: No r esponse to M tuberculosis antigens detected. Infection with M tuberculosis is unlikely, but high risk individuals should be considered for additional testing (ATS/IDSA/CDC Clinical Practice Guidelines, 2017). The reference range is an Antigen minus Nil result of <0.35 IU/mL. The specimen received for QuantiFERON testing was incubated by the ordering institution. Specific procedures outlined in our Directory of Services and in the package insert for the QuantiFERON Gold (In Tube) test must be followed to enable for proper stimulation of cells for the production of interferon gamma. Chemiluminescence immunoassay methodology Performed at: [employer] [id number] PhD Ashtyn Baig Performed By: #### 1 [id number] #### [facility] [address] [place] [address] Mitogen stimulated gamma interferon corrected for background Qn (Bld) >10.00 Invalid Interpretation Code [facility] Comment on above: Performed By: #### 1 [id number] #### [facility] [address] [place] [address] Service comment (Unsp spec) [Interp] Comment Invalid Interpretation Code [facility] Comment on above: Result Comment: Raza tiFERON-TB Gold Plus is a qualitative indirect test for M tuberculosis infection (including disease) and is intended for use in conjunction with risk assessment, radiography, and other medical and diagnostic evaluations. The QuantiFERON-TB Gold Plus result is determined by subtracting the Nil value from either TB antigen (Ag) value. The Mitogen tube serves as a control for the test. Performed By: #### 1 [id number] #### [facility] [address] [place] [address] Hep Bs Abon 10-21-2023 HBV surface Ab Ql (S) Non-Reactive Invalid Interpretation Code [facility] Comment on above: Result Comment: Non Reactive: Not immune to HBV infection. Equivocal: Unable to determine if anti-HBs is present at levels consistent with immunity. Reactive: Anti-HBs concentration detected at greater than 10 mIU/mL. Individual is considered to be immune to infection with HBV. Performed at: [employer] [facility] [address] [id number] PhD Ashtyn Baig Performed By: #### 2 [id number] #### [facility] [address] [place] [address] Measles/Mumps/Rubella Immuni tyon 10-21-2023 MeV IgG IA Qn (S) 23.8 A unit/mL Invalid Interpretation Code Immune >16.4 [facility] Comment on above: Result Comment: Nega tive <13.5 Equivocal 13.5 - 16.4 Positive >16.4 Presence of antibodies to Rubeola is presumptive evidence of immunity except when acute infection is suspected. Performed By: #### 3 [id number] #### [facility] [address] [place] [address] MuV IgG IA Qn (S) 86.3 A unit/mL Invalid Interpretation Code Immune >10.9 [facility] Comment on above: Result Comment: Nega tive <9.0 Equivocal 9.0 - 10.9 Positive >10.9 A positive result generally indicates past exposure to Mumps virus or previous vaccination. Performed at: [employer] [id number] PhD Ashtyn Baig Performed By: #### 3 [id number] #### [facility] [address] [place] [address] Rubella virus IgG Qn (S) 1.45 [IU]/mL Invalid Interpretation Code Immune >0.99 [facility] Comment on above: Result Comment: Non- immune <0.90 Equivocal 0.90 - 0.99 Immune >0.99 Performed By: #### 3 [id number] #### [facility] [address] [place] [address] Varic IgGon 10-21-2023 VZV IgG IA Qn (S) 228 Invalid Interpretation Code Immune >165 [facility] Comment on above: Result Comment: Nega tive <135 Equivocal 135 - 165 Positive >165 A positive result generally indicates exposure to the pathogen or administration of specific immunoglobulins, but it is not indication of active infection or stage of disease. Performed at: [facility] [id number] PhD Ashtyn Baig Performed By: #### 1 [id number] #### [facility] [address] [place] [address] Registrationon 03-01-2020 Registration [id number]#1.00CD:127 Normal [facility] 02-29-2020 Consent [id number]#1.00CD:127 Normal [facility] In office Testingon 02-28-19 21 In office Testing [id number]#1.00CD:127 Normal [facility] 11-12-2019 Consent [id number]#1.00CD:127 Normal [facility] In office Testingon 11-12-19 20 In office Testing [id number]#1.00CD:127 Normal [facility] Vital Signs Date Time Vital Sign Value Performing Clinician Branden flynn 07-05-2021 22:45-0400 Body temperature 98.6 [degF] Lizzy Pyle MD Work Phone: [facility] 07-05-2021 22:45-0400 Body weight 56.56 kg Lizzy Pyle MD Work Phone: [facility] 07-05-2021 22:45-0400 Diastolic blood pressure 90 mm[Hg] Lizzy Pyle MD Work Phone: [facility] 07-05-2021 22:45-0400 Heart rate 97 /min Lizzy Pyle MD Work Phone: [facility] 07-05-2021 22:45-0400 Respiratory rate 16 /min Lizzy Pyle MD Work Phone: [facility] 07-05-2021 22:45-0400 SaO2% (BldA) [Mass fraction] 96 % Lizzy Pyle MD Work Phone: [facility] 07-05-2021 22:45-0400 Systolic blood pressure 126 mm[Hg] Lizzy Pyle MD Work Phone: [facility] Encounters Encounter Date Encounter Type Care Provider Facility Start: 10-20-2023 End: 10-20-2023 ambulatory Melanie Feliciano BREE Facility:[facility] Start: 10-16-2023 End: 10-16-2023 ambulatory LILIAN MELISSA Not Available Start: 09-18-2023 End: 09-18-2023 ambulatory RHETT LILY Not Available Start: 08-19-2023 End: 08-19-2023 ambulatory LILIAN MELISSA Not Available Start: 07-18-2023 End: 07-18-2023 ambulatory LILIAN MELISSA Not Available Start: 04-02-2023 End: 04-02-2023 ambulatory LILIAN MELISSA Not Available Start: 07-06-2021 End: 07-06-2021 Emergency department patient visit KADIE BIRD [facility] Start: 07-05-2021 End: 07-05-2021 Emergency department patient visit Lizzy Pyle MD Work Phone: [facility] ED Comment on above: Shortness of breath (Primary Dx); Seasonal allergies Plan of Treatment Date Care Activity Detail Author Start: 10-25-2021 Influenza vaccination Flu vaccine (S yodit Ended) [facility] Start: 11-11-2019 DTaP/Tdap/Td vaccine (1 - Tdap) DTaP/Tdap/Td vaccine (1 - Tdap) [facility] Start: 2018 Hepatitis C screening Hepatitis C sc reen [facility] Start: 2016 Screening for Chlamy rupa trachomatis Chlamydia screen [facility] Start: 11-11-2015 HIV screening HIV screen [facility] Start: 2012 Depression Screen Depression Screen [facility] Start: 11-11-2011 HPV vaccine (1 - 2-d ose series) HPV vaccine (1 - 2-dose series) [facility] Start: 2005 COVID-19 Vaccine (1) COVID-19 Vaccin e (1) [facility] Start: 2001 Varicella vaccine (1 of 2 - 2-dose childhood series) Varicella vaccine (1 of 2 - 2-dose childhood series) [facility] Payers Date Payer Category Payer Unknown [id number] 2020 Private Health Insurance [id number] 2014 Unknown [id number] 2000 Unknown [id number] 2.16.84 [id number] 2000 Unknown [id number] 2.16.84 [id number] 2000 Unknown [id number] 2.16.84 [id number] 2000 Unknown [id number] 2.16.84 [id number] 2000 Unknown [id number] 2.16.84 [id number] 1972 Unknown [id number] 2.16.8 [id number] Social History Date Type Detail Facility Start: 01-03-2013 Tobacco smoking stat [facility] Never smoked tobacco [employer] Start: 01-03-2013 Tobacco use and exposure Smokeless tobacco non-user [employer] [facility]: Start: 07-05-2021 Alcohol intake 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 Use a vacuum leather cleaner with a HEPA filter or a [...] Where can you learn more? Go to [email or web address] and sign in to your [employer] account. Enter L249 in the Search Health Information box to learn more about Managing Your Allergies: Care Instructions. If you do not have an account, please click on the Sign Up Now link. Current as of: April 05, 2020 Content Version: 13.2 [employer]. Care instructions adapted under license by [employer]. If you have questions about a medical condition or this instruction, always ask your healthcare professional. [employer] disclaims any warranty or liability for your [...] weeds. Allergies can be mild or severe. Aqyd-ipy-xpcnpkl allergy medicine may helpwith some symptoms. Read [...] or twice a week. Use a vacuum leather cleaner with a HEPA filter or a [...] Where can you learn more? Go to [email or web address] and sign in to your [employer] account. Enter J912 in the Search Health Information box to learn more about Seasonal Allergies: Care Instructions. If you do not have an account, please click on the Sign Up Now link. Current as of: April 05, 2020 Content Version: 13.2 [id number] [employer]. Care instructions adapted under license by [employer]. If you have questions about a medical condition or this instruction, always ask your healthcare professional. [employer] disclaims any warranty or liability for your use of this information. The following attachments cannot be sent through Care Everywhere.Allergies (Allergic Rhinitis): Managing (Icelandic)documented in this encounter [employer]: Evaluation note Note Date & Type Note Facility Evaluation note Diagnosis Shortness of breath- Primary Seasonal allergies Allergic rhinitis, cause unspecified documented in this encounter [employer] [facility]: Summary Purpose Family History No Family History Records FoundNo Family History Records FoundNo Family History Records FoundNo Family History Records FoundNo Family History Records FoundNo Family History Records FoundNo Family History Records FoundNo Family History Records Found Advance Directives No Advanced Directives Records FoundDocuments on File Type Date 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 ACP-Advance Directive ACP-Power of Oil Refiner Additional Source Comments INFORMATION SOURCE (unrecogn ized section and content) DATE CREATED AUTHOR [facility]/02/2020 [facility] DATE CREATED AUTHOR AUTHOR'S ORGANIZ ATION 07/07/2021 [facility] DATE CREATED AUTHOR AUTHOR'S ORGANIZ ATION 10/18/2023 [facility] EPIC DATE CREATED AUTHOR AUTHOR'S ORGANIZ ATION 10/22/2023 [facility] DATE CREATED AUTHOR AUTHOR'S ORGANIZ ATION 10/24/2023 [facility] Reason for Visit (unrecogniz ed section and [...] Care Teams (unrecognized sec tion and content) Chart Changer Relationship Specialty Start Date End Date Kadie Bird MD [address] [place] [address] PCP - General 03/14/16 FOR [...] BE BASED ON THE PRIMARY CLINICAL RECORDS. [employer] [facility]. provides no warranty or guarantee of the accuracy or completeness of information in this document.
[2023-10-31 09:06] LABS: Basophils Percent Auto 0.3 % (0.2-2.0); Eosinophils Absolute Auto 0.2 10^3/uL (0.0-0.7); Hematocrit 36.4 % (36.0-48.0); Immature Granulocytes Abs Auto 0.07 10^3/uL (0.00-0.03); Immature Granulocytes Pct Auto 0.7 % (0.0-0.5); Lymphocytes Absolute Auto 2.5 10^3/uL (1.2-3.8); Lymphocytes Percent Auto 23.5 % (20.5-60.0); Mean Corpuscular Hemoglobin 29.9 pg (26.7-34.0); Mean Corpuscular Volume 90.8 fL (81.0-99.0); Mean Platelet Volume 12.1 fL (9.5-13.5); Monocytes Absolute Auto 0.8 10^3/uL (0.3-0.8); Monocytes Percent Auto 7.6 % (1.7-12.0); Neutrophils Absolute Auto 7.1 10^3/uL (1.4-6.5); Neutrophils Percent Auto 65.9 % (43.0-75.0); Platelet Count 159 10^3/uL (150-450); Red Blood Count 4.01 10^6/uL (4.20-5.40); Red Cell Distribution Width 13.1 % (11.0-15.0); White Blood Count 10.7 10^3/uL (4.0-11.0)
[2023-10-31 09:41] LABS: Glucose 1 Hour 102 mg/dL (<130)
== END 2023-10-31 07:52 | disposition home or self-care (01) ==
LOC: LAB 07:51
PROVIDERS: Visit Provider Obstetrics & Gynecology
DX: Z13.1 Encounter for screening for diabetes mellitus (principal)
CPT/HCPCS: 36415; 82950; 85025

== ENCOUNTER 2023-12-19 06:56 | Outpatient (OUT) | payer MEDICAID, SELFPAY ==
--- OUTSIDE RECORDS SUMMARY | 2023-12-19 07:02 | XMS_ITS | CCD ---
Author Organization [facility] Care Team Providers Care Instructional Supervisor Name Role Phone Kadie Bird MD Primary Care Provider [phone] KADIE BIRD Primary Care Unavailable LIZZY PYLE Attending Unavailable Melanie GIRON Attending Unavailable Unavailable Primary Care Provider UnavailLILIAN Armas Attending Unavailable LILIAN BERRY Attending Unavailable MICHELLE BAUTISTA Attending Unavailable LILIAN BERRY Attending Unavailable LILY, MICHELLE Attending Unavailable MICHELLE BAUTISTA Attending Unavailable LILIAN BERRY Attending Unavailable Medications Current Medications Medication Drug [...] Active Problems Problem Classification Problem Date Documented Date Episodic/Chronic Hemorrhage during ; abruptio placenta; placenta previa (4 sources) Low lying placenta; Translations: [Low lying placenta NOS or without hemorrhage, unspecified trimester] Onset: 10-16-2023 10-16-2023 Episodic Other lower respiratory disease (1 source) Dyspnea; Translations: [Shortness of breath] Episodic Other and delivery including normal (8 sources) Third trimester ; Translations: [Encounter for supervision of normal , unspecified, third trimester] Onset: 10-16-2023 12-01-2023 Episodic Other screening for suspected conditions (not mental disorders or infectious disease) (4 sources) Patient encounter status; Translations: [Encounter for screening for diabetes mellitus] Onset: 10-16-2023 10-16-2023 Episodic Other upper respiratory disease (1 source) Seasonal allergy; Translations: [Other seasonal allergic rhinitis] Chronic Residual codes; unclassified (2 sources) Gestation period, 30 weeks; Translations: [30 weeks gestation of ] 12-01-2023 Episodic Residual codes; unclassified (4 sources) Gestation period, 23 weeks; Translations: [23 weeks gestation of ] Onset: 10-16-2023 10-16-2023 Episodic Residual codes; unclassified (4 sources) H/O: miscarriage; Translations: [Personal history of other complications of , childbirth and the puerperium] Onset: 10-16-2023 10-16-2023 Episodic Residual codes; unclassified (2 sources) Gestation period, 32 weeks; Translations: [32 weeks gestation of ] 12-15-2023 Episodic Short gestation; low weight; and growth retardation (2 sources) Gkoss-aaz-munfp baby; Translations: [[place] small for gestational age, unspecified weight] 12-15-2023 Episodic Unclassified (4 sources) OB Reminders Onset: 09-18-2023 09-18-2023 Results Test Name Value Interpretation Reference Range Facility Urinalysis macro (dipstick) panel (U)on 12-15-2023 Bilirubin, UA Negative Negative - 4(70) +++ mg/dL [facility] Blood, UA Positive Negative - 50 Main/mcL [facility] Comment on above: trace Clarity, UA Clear [facility] Color, UA Yellow [facility] Glucose, UA Negative Negative - 1999(110) ++++ mg/dL [facility] Interpretation and review of laboratory results Abnormal [facility] Ketones, UA Negative Negative - 160(16) ++++ mg/dL [facility] Leukocytes, UA Negative Negative - 500+++ Fausto/mcL [facility] Nitrite, UA Negative Negative - Positive [facility] pH, UA 7 5 - 9 [facility] Protein, UA Negative Negative - 1999(20) ++++ mg/dL [facility] Spec Grav, UA 1.015 1 - 1.03 [facility] Urobilinogen, UA 1.0 0.2 - 12 mg/dL [facility] Urinalysis macro (dipstick) panel (U)on 12-01-2023 Bilirubin, UA Negative Negative - 4(70) +++ mg/dL [facility] Blood, UA Negative Negative - 50 Main/mcL [facility] Clarity, UA Clear [facility] Color, UA Yellow [facility] Glucose, UA Negative Negative - 1999(110) ++++ mg/dL [facility] Interpretation and review of laboratory results Abnormal [facility] Ketones, UA Negative Negative - 160(16) ++++ mg/dL [facility] Leukocytes, UA Negative Negative - 500+++ Fausto/mcL [facility] Nitrite, UA Negative Negative - Positive [facility] pH, UA 7.0 5 - 9 [facility] Protein, UA Negative Negative - 1999(20) ++++ mg/dL [facility] Spec Grav, UA 1.025 1 - 1.03 [facility] Urobilinogen, UA 0.2 0.2 - 12 mg/dL [facility] Quantiferon-TB Plus (Client Incubated)on 10-22-2023 Gamma interferon background IA Qn (Bld) 0.00 International_Unit/ mL Invalid Interpretation Code [facility] Comment on above: Performed By: #### 1 [id number] #### [facility] [address] [place] [address] M. tuberculosis stim IFN-g by CD4+ CD8+ T-cells corrected for background Qn (Bld) 0.00 International_Unit/ mL Invalid Interpretation Code [facility] Comment on above: Performed By: #### 1 [id number] #### [facility] [address] [place] [address] M. tuberculosis stim IFN-g by CD4+ T-cells corrected for background Qn (Bld) 0.00 International_Unit/ mL Invalid Interpretation Code [facility] Comment on above: Performed By: #### 1 [id number] #### [facility] [address] [place] [address] M. tuberculosis stim IFN-g Ql (Bld) [Interp] Negative Invalid Interpretation Code Negative [facility] Comment on above: Result Comment: No r [...] interferon gamma. Chemiluminescence immunoassay methodology Performed at: [address] [id number] PhD Ashtyn Baig Performed By: #### 1 [id number] #### [facility] [address] [place] [address] Mitogen stimulated gamma interferon corrected for background Qn (Bld) >10.00 Invalid Interpretation Code [facility] Comment on above: Performed By: #### 1 [id number] #### [facility] [address] [place] [address] Service comment (Unsp spec) [Interp] Comment Invalid Interpretation Code [facility] Comment on above: Result Comment: Raza tiFERON-TB [...] for the test. Performed By: #### 1 [id number] #### [facility] [address] [place] [address] Hep Bs Abon 10-21-2023 HBV surface Ab Ql (S) Non-Reactive Invalid Interpretation Code [facility] Comment on above: Result Comment: Non Reactive: Not immune to HBV infection. Equivocal: Unable to determine if anti-HBs is present at levels consistent with immunity. Reactive: Anti-HBs concentration detected at greater than 10 mIU/mL. Individual is considered to be immune to infection with HBV. Performed at: [facility] [address] [place], [place] [id number] PhD Ashtyn Baig Performed By: #### 2 [id number] #### [facility] [address] [place] [address] Measles/Mumps/Rubella Immuni tyon 10-21-2023 MeV IgG IA Qn (S) 23.8 A unit/mL Invalid Interpretation Code Immune >16.4 [facility] Comment on above: Result Comment: Nega tive <13.5 Equivocal 13.5 - 16.4 Positive >16.4 Presence of antibodies to Rubeola is presumptive evidence of immunity except when acute infection is suspected. Performed By: #### 3 [id number] #### [facility] [address] [place] [address] MuV IgG IA Qn (S) 86.3 A unit/mL Invalid Interpretation Code Immune >10.9 [facility] Comment on above: Result Comment: Nega tive <9.0 Equivocal 9.0 - 10.9 Positive >10.9 A positive result generally indicates past exposure to Mumps virus or previous vaccination. Performed at: [facility] [address], [place] [id number] PhD Ashtyn Baig Performed By: #### 3 [id number] #### [facility] [address] [place] [address] Rubella virus IgG Qn (S) 1.45 [IU]/mL Invalid Interpretation Code Immune >0.99 [facility] Comment on above: Result Comment: Non- immune <0.90 Equivocal 0.90 - 0.99 Immune >0.99 Performed By: #### 3 [id number] #### [facility] [address] [place] [address] Varic IgGon 10-21-2023 VZV IgG IA Qn (S) 228 Invalid Interpretation Code Immune >165 [facility] Comment on above: Result Comment: Nega tive <135 Equivocal 135 - 165 Positive >165 A positive result generally indicates exposure to the pathogen or administration of specific immunoglobulins, but it is not indication of active infection or stage of disease. Performed at: [facility] [address], [place] [id number] PhD Ashtyn Baig Performed By: #### 1 [id number] #### [facility] [address] [place] [address] Registrationon 03-01-2020 Registration [id number]#1.00CD:127 Normal [facility] Consenton 02-29-2020 Consent [id number]#1.00CD:127 Normal [facility] In office Testingon 02-28-19 21 In office Testing [id number]#1.00CD:127 Normal [facility] 11-12-2019 Consent [id number]#1.00CD:127 Normal [facility] In office Testingon 11-12-19 20 In office Testing [id number]#1.00CD:127 Normal [facility] Vital Signs Date Time Vital Sign Value Performing Clinician Branden flynn 12-15-2023 08:41-0400 Body mass index (BMI) [Ratio] 32.32 kg/m2 LilianLessonwriter DO Work Phone: [facility] 12-15-2023 08:41-0400 Body weight 72.58 kg Snapshot Interactive DO Work Phone: [facility] 12-15-2023 08:41-0400 Diastolic blood pressure 64 mm[Hg] [employer] DO Work Phone: [facility] 12-15-2023 08:41-0400 Systolic blood pressure 110 mm[Hg] Remotiumo DO Work Phone: [facility] 12-01-2023 08:57-0400 Body mass index (BMI) [Ratio] 32.4 kg/m2 Michelle MOORE Work Phone: [facility] 12-01-2023 08:57-0400 Body weight 72.76 kg Michelle MOORE Work Phone: [facility] 12-01-2023 08:57-0400 Diastolic blood pressure 60 mm[Hg] Michelle MOORE Work Phone: [facility] 12-01-2023 08:57-0400 Systolic blood pressure 110 mm[Hg] Michelle MOORE Work Phone: [facility] 07-05-2021 22:45-0400 Body temperature 98.6 [degF] Lizzy Pyle MD Work Phone: [facility] 07-05-2021 22:45-0400 Body weight 56.56 kg Lizzy Pyle MD Work Phone: [facility] 07-05-2021 22:45-0400 Diastolic blood pressure 90 mm[Hg] Lizzy Pyle MD Work Phone: [facility] 07-05-2021 22:45-0400 Heart rate 97 /min Lizzy Pyle MD Work Phone: [facility] 07-05-2021 22:45-0400 Respiratory rate 16 /min Lizzy Pyle MD Work Phone: [facility] 07-05-2021 22:45-0400 SaO2% (BldA) [Mass fraction] 96 % Lizzy Pyle MD Work Phone: [facility] 07-05-2021 22:45-0400 Systolic blood pressure 126 mm[Hg] Lizzy Pyle MD Work Phone: [facility] Encounters Encounter Date Encounter Type Care Provider Facility Start: 12-15-2023 End: 12-15-2023 Office outpatient visit 15 minutes Lilian Berry DO Work Phone: [facility] Comment on above: Third trimester preg tyler; 32 weeks gestation of ; SGA (small for gestational age) Start: 12-15-2023 End: 12-15-2023 ambulatory LILIAN KRISTI Not Available Start: 12-01-2023 End: 12-01-2023 Office outpatient visit 15 minutes Michelle MOORE Work Phone: [facility] Comment on above: 30 weeks gestation o f ; Third trimester Start: 12-01-2023 End: 12-01-2023 ambulatory MICHELLE BAUTISTA Not Available Start: 11-17-2023 End: 11-17-2023 ambulatory MICHELLE BAUTISTA Not Available Start: 10-20-2023 End: 10-20-2023 ambulatory Melanie Feliciano BREE Facility:[facility] Start: 10-16-2023 End: 10-16-2023 ambulatory LILIAN KRISTI Not Available Start: 09-18-2023 End: 09-18-2023 ambulatory MICHELLE LILY Not Available Start: 08-19-2023 End: 08-19-2023 ambulatory LILIAN KRISTI Not Available Start: 07-18-2023 End: 07-18-2023 ambulatory LILIAN KRISTI Not Available Start: 04-02-2023 End: 04-02-2023 ambulatory LILIAN KRISTI Not Available Start: 07-06-2021 End: 07-06-2021 Emergency department patient visit KADIE Dom[facility]nguez [facility] Start: 07-05-2021 End: 07-05-2021 Emergency department patient visit Lizzy Pyle MD Work Phone: [facility] ED Comment on above: Shortness of breath (Primary Dx); Seasonal allergies Procedures Date Procedure Procedure Detail Performing Clinician Start: 12-15-2023 Urnls dip stick/tabl et rgnt non-auto w/o micrscp Lilian Kristi DO Work Phone: Start: 12-01-2023 Urnls dip stick/tabl et rgnt non-auto w/o micrscp Michelle MOORE Work Phone: Plan of Treatment Date Care Activity Detail Author Start: 12-31-2023 End: 12-31-2023 Patient encounter procedure 12/31/2023 8:30 AM EST Routine [facility] [address] [place], [place] [address] [place] [phone] Michelle Bautista PA [address] [place], [place] [id number] [facility] Start: 12-15-2023 End: 12-14-2024 US for US OB SCAN FOR GROWTH Imaging Routine Third trimester SGA (small for gestational age) Expected: 12/15/2023 (Approximate), Expires: 12/14/2024 [facility] Work Phone: Comment on above: Expected: 12/15/2023 (Approximate), Expires: 12/14/2024 Start: 12-15-2023 End: 12-15-2023 Patient encounter procedure 12/15/2023 8:30 AM EDT Routine [facility] [address] [place] [phone] Lilian Berry DO [address] [place], [place] [id number] [facility] Start: 10-25-2021 Influenza vaccination Flu vacc ine (Season Ended) [facility] Start: 11-11-2019 DTaP/Tdap/Td vaccine (1 - Tdap) DTaP/Tdap/Td vaccine (1 - Tdap) [facility] Start: 2018 Hepatitis C screening Hepatitis C sc reen [facility] Start: 2016 Screening for Chlamy rupa trachomatis Chlamydia screen [facility] Start: 11-11-2015 HIV screening HIV screen [facility] Start: 2012 Depression Screen Depression Screen [facility] Start: 11-11-2011 HPV vaccine (1 - 2-d ose series) HPV vaccine (1 - 2-dose series) [facility] Start: 2005 COVID-19 Vaccine (1) COVID-19 Vaccin e (1) [facility] Start: 2001 Varicella vaccine (1 of 2 - 2-dose childhood series) Varicella vaccine (1 of 2 - 2-dose childhood series) [facility] Payers Date Payer Category Payer Unknown [id number] 2020 Private Health Insurance [id number] 2019 Medicaid MEDICAID [facility] [id number] 2019 Medicaid [id number] 2014 Unknown [id number] 2000 Unknown [id number] 9 2000 Unknown [id number] 1259 2000 Unknown [id number] 9 2000 Unknown [id number]. 9 2000 Unknown [id number] 9 2000 Unknown [id number] [id number]. 9 2000 Unknown [id number] [id number]. 9 2000 Unknown [id number] 1259 1972 Unknown [id number] 174 Social History Date Type Detail Facility Start: 01-03-2013 End: 10-16-2023 Tobacco smoking status NHIS Never smoked tobacco [employer] 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) [employer] Phone: Start: 2000 Sex Assigned At Not on file [employer] Phone: Start: 06-25-2021 End: 07-06-2021 Exposure to SARS-CoV-2 (event) Not sure [employer] Phone: Start: 12-01-2023 Alcoholic beverage intake Lifetime non-drinker (finding) [facility] Start: 10-16-2023 History of Social function [facility] Start: 10-16-2023 Tobacco use panel [facility] Start: 05-16-2023 [facility] Goals Date Patient Goal Desired Activity /State Personal health goal History of Present illness Narrative 12-15-2023 Kaitlin Quigley LPN - 12/15/2023 8:30 AM EDT Note Date & Type Note Facility 12-15-2023 History of Presen t illness Narrative Reason for Appointment: Patient ID: Chi Garcia is a 23 y.o. female who presents for Routine Visit Patient presents today for Return OB appointment. MEDICATIONS No current outpatient medications ALLERGIES No Known Allergies PROBLEMS Active Ambulatory Problems Diagnosis Date Noted 23 weeks gestation of 10/16/2023 History of miscarriage 10/16/2023 Low-lying placenta 10/16/2023 Second trimester 10/16/2023 Diabetes mellitus screening 10/16/2023 Resolved Ambulatory Problems Diagnosis Date Noted No Resolved Ambulatory Problems No Additional Past Medical History HISTORY PAST MEDICAL HISTORY SOCIAL HISTORY No past medical history on file. Social History Tobacco Use Smoking status: Never Smokeless tobacco: Never Substance Use Topics Alcohol use: Never Drug use: Never FAMILY HISTORY Family History Problem Relation Name Age of Onset Cancer Mother's Sister Aurelia Diabetes Father's Brother Alex SURGICAL HISTORY Past Surgical History: Procedure Laterality Date DILATION AND CURETTAGE OF UTERUS 03/26/2023 REVIEW OF SYSTEMS Review of Systems: Review of Systems All other systems reviewed and are negative. OBJECTIVE Objective: Physical Exam Constitutional: Appearance: Normal appearance. She is well-developed. Cardiovascular: Rate and Rhythm: Normal rate and regular rhythm. Pulmonary: Effort: Pulmonary effort is normal. Breath sounds: Normal breath sounds. Abdominal: General: Bowel sounds are normal. There is no distension. Palpations: Abdomen is soft. Tenderness: There is no abdominal tenderness. There is no guarding or rebound. Musculoskeletal: General: No swelling. Normal range of motion. Right lower leg: No edema. Left lower leg: No edema. Neurological: Mental Status: She is alert and oriented to person, place, and time. Skin: General: Skin is warm and dry. Psychiatric: Mood and Affect: Mood normal. Behavior: Behavior normal. Vitals and nursing note reviewed. Exam conducted with a electric relay tester present. Vitals: Estimated body mass index is 32.32 kg/m as calculated from the following: Height as of 04/02/23: 4' 11 . Weight as of this encounter: 160 lb. BP: 110/64 Patient's last menstrual period was 05/02/2023. ASSESSMENT & PLAN ICD-10-CM 1. Third trimester Z34.93 POCT urinalysis dipstick manually resulted 2. 32 weeks gestation of Z3A.32 POCT urinalysis dipstick manually resulted Patient presents today for a routine obstetrics appointment. Patient is currently 32w3d with a Estimated Date of Delivery: 02/06/24. Patient will have Growth Scan ordered due to size greater than dates. Patient to return to clinic in 2 weeks. Documented by Kaitlin Quigley LPN on behalf of: Lilian Berry DO documented in this encounter [facility] History of Present illness Narrative 12-01-2023 TERESA Tapia - 12/01/2023 8:50 AM EDT Note Date & Type Note Facility 12-01-2023 History of Presen t illness Narrative Reason for Appointment: Patient ID: Chi Garcia is a 23 y.o. female who presents for Routine Visit Patient presents today for Return OB appointment. MEDICATIONS No current outpatient medications ALLERGIES No Known Allergies PROBLEMS Active Ambulatory Problems Diagnosis Date Noted 23 weeks gestation of 10/16/2023 History of miscarriage 10/16/2023 Low-lying placenta 10/16/2023 Second trimester 10/16/2023 Diabetes mellitus screening 10/16/2023 Resolved Ambulatory Problems Diagnosis Date Noted No Resolved Ambulatory Problems No Additional Past Medical History HISTORY PAST MEDICAL HISTORY SOCIAL HISTORY History reviewed. No pertinent past medical history. Social History Tobacco Use Smoking status: Never Smokeless tobacco: Never Substance Use Topics Alcohol use: Never Drug use: Never FAMILY HISTORY Family History Problem Relation Name Age of Onset Cancer Mother's Sister Aurelia Diabetes Father's Brother Alex SURGICAL HISTORY Past Surgical History: Procedure Laterality Date DILATION AND CURETTAGE OF UTERUS 03/26/2023 REVIEW OF SYSTEMS Review of Systems: Review of Systems Constitutional: Negative. HENT: Negative. Eyes: Negative. Respiratory: Negative. Cardiovascular: Negative. Gastrointestinal: Negative. Genitourinary: Negative. Musculoskeletal: Negative. Skin: Negative. Neurological: Negative. All other systems reviewed and are negative. Hematological: Negative. Endocrine: Negative. Allergic/Immunologic: Negative. OBJECTIVE Objective: Physical Exam Constitutional: Appearance: Normal appearance. She is normal weight. HENT: Head: Normocephalic. Cardiovascular: Rate and Rhythm: Normal rate. Pulses: Normal pulses. Pulmonary: Effort: Pulmonary effort is normal. Breath sounds: Normal breath sounds. Abdominal: Palpations: Abdomen is soft. Musculoskeletal: General: Normal range of motion. Neurological: General: No focal deficit present. Mental Status: She is alert and oriented to person, place, and time. Psychiatric: Mood and Affect: Mood normal. Behavior: Behavior normal. Thought Content: Thought content normal. Judgment: Judgment normal. Vitals and nursing note reviewed. Vitals: Estimated body mass index is 32.4 kg/m as calculated from the following: Height as of 04/02/23: 4' 11 . Weight as of this encounter: 160 lb 6.4 oz. BP: 110/60 Patient's last menstrual period was 05/02/2023. ASSESSMENT & PLAN ICD-10-CM 1. 30 weeks gestation of Z3A.30 POCT urinalysis dipstick manually resulted 2. Third trimester Z34.93 POCT urinalysis dipstick manually resulted Return OB: Patient presents today for a routine obstetrics appointment. Patient is currently 30w3d . Patient states she is doing well but has complaints of being tired due to current . Patient has verbalizes frequent movement. labor precautions was discussed/given and patient was instructed to perform kick counts three times a day. Orders Placed This Encounter Procedures POCT urinalysis dipstick manually resulted Follow Up: Patient is to return to office in 2 week for routine OB appointment. Documented by TERESA Tapia on behalf of: TERESA Tapia documented in this encounter [facility] Discharge instructions 07-05-2021 InstructionsAttachments Note Date & [...] pollen counts are high. Use a vacuum cutch cleaner with a HEPA filter or a [...] Where can you learn more? Go to [email or web address] and sign in to your [employer] account. Enter L249 in the Search Health Information box to learn more about Managing Your Allergies: Care Instructions. If you do not have an account, please click on the Sign Up Now link. Current as of: April 05, 2020 Content Version: 13.2 [employer]. Care instructions adapted under license by [employer] If you have questions about a medical condition or this instruction, always ask your healthcare professional. [employer] disclaims any warranty or liability for [...] weeds. Allergies can be mild or severe. Issm-wif-fiusbqp allergy medicine may helpwith some symptoms. Read [...] or twice a week. Use a vacuum cutch cleaner with a HEPA filter or a [...] Where can you learn more? Go to [email or web address] and sign in to your [employer] account. Enter J912 in the Search Health Information box to learn more about Seasonal Allergies: Care Instructions. If you do not have an account, please click on the Sign Up Now link. Current as of: April 05, 2020 Content Version: 13.2 [employer]. Care instructions adapted under license by [employer] If you have questions about a medical condition or this instruction, always ask your healthcare professional. [employer] disclaims any warranty or liability for your use of this information. The following attachments cannot be sent through Care Everywhere.Allergies (Allergic Rhinitis): Managing (Upper Sorbian)documented in this encounter [employer] Phone: Evaluation note Note Date & Type Note Facility Evaluation note Diagnosis Shortness of breath- Primary Seasonal allergies Allergic rhinitis, cause unspecified documented in this encounter [employer] Phone: Evaluation note Note Date & Type Note Facility Evaluation note Diagnosis 30 weeks gestation of Third trimester state, incidental documented in this encounter [facility] Evaluation note Note Date & Type Note Facility Evaluation note Diagnosis Third trimester state, incidental 32 weeks gestation of SGA (small for gestational age) [id number] without mention of malnutrition, unspecified (weight) documented in this encounter [facility] Summary Purpose Family History No Family History Records FoundNo Family History Records FoundNo Family History Records FoundNo Family History Records FoundNo Family History Records FoundNo Family History Records FoundNo Family History Records FoundNo Family History Records Found Advance Directives No Advanced Directives Records FoundDocuments on File Type Date Recorded 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 ACP-Advance Directive ACP-Power of Stockroom Coordinator Additional Source Comments INFORMATION SOURCE (unrecogn ized section and content) DATE CREATED [facility] DATE CREATED AUTHOR AUTHOR'S ORGANIZ ATION 07/07/2021 [facility] DATE CREATED AUTHOR AUTHOR'S ORGANIZ ATION 10/22/2023 [facility] DATE CREATED AUTHOR AUTHOR'S ORGANIZ ATION 10/24/2023 [facility] DATE CREATED AUTHOR AUTHOR'S ORGANIZ ATION 12/16/2023 [facility] EPIC Reason for Visit (unrecogniz ed section and content) Reason Comments Shortness of Breath Pt C/O SOB x 5 days with congestion and itchy eyes. Reason Comments Routine Visit Ordered Prescriptions (unrec ognized section and content) [...] Care Teams (unrecognized sec tion and content) Instructional Supervisor Relationship Specialty Start Date End [place] [address] PCP - General 03/14/16 FOR [...] BE BASED ON THE PRIMARY CLINICAL RECORDS. [facility]. provides no warranty or guarantee of the accuracy or completeness of information in this document.
--- NOTE | 2023-12-19 07:05 | US_ITS ---
[address] [address] Patient Name: BEN CHANCE MRN: [id number] date: 2000 Sex: F Assigned Patient Location: US Current Patient Location: US Accession/Order Number: [id number] Exam Date: 12/19/2023 07:06 Report Date: 12/19/2023 07:46 At the request of: LILIAN TORRES Procedure: US OB growth EXAMINATION: US OB growth HISTORY: Small For Gestation Age COMPARISON: Ultrasound OB anatomy 09/24/2023 FINDINGS: Heart Rate: 146.74 bpm Amniotic Fluid Volume: 14.3 cm; normal range. Number: 1 Position: CEPHALIC BIOMETRY: BPD: 7.87 cm; 31 weeks 4 days; 9.60 % HC: 29.17 cm; 32 weeks 1 day; 4.70 % AC: 25.93 cm; 30 weeks 1 day; < 3 % FL: 5.71 cm; 30 weeks 0 days; < 3 % EFW: 1557.79 g; < 3 % FL/AC: 22.03 FL/BPD: 72.65 HC/AC: 1.12 GESTATIONAL AGE: Age by EDC: 33 weeks 0 days MILLI by EDC: 2024-02-06 Age by US: 31 weeks 0 days MILLI by US: 2024-02-20 US/US OB growth IMPRESSION: 1. Single live intrauterine with growth detailed above. 2. Estimated weight is < 3rd percentile. Electronically authenticated by: BARRY SHELDON Date: 12/19/2023 07:46
== END 2023-12-19 06:57 | disposition home or self-care (01) ==
LOC: US 07:00
PROVIDERS: Visit Provider Obstetrics & Gynecology
DX: O26.843 Uterine size-date discrepancy, third trimester (principal); Z3A.33 33 weeks gestation of pregnancy
CPT/HCPCS: 76816

== ENCOUNTER 2024-01-21 19:26 | Outpatient (REF) | payer OTHER, SELFPAY | END 2024-01-21 19:27 | disposition home or self-care (01) | LOC: LAB 19:26 | PROVIDERS: Visit Provider Obstetrics & Gynecology | DX: Z34.93 Encounter for supervision of normal pregnancy, unspecified, third trimester (principal) | CPT/HCPCS: 87081; 87150 ==

== ENCOUNTER 2024-02-05 16:24 | Inpatient (IN) | payer OTHER, SELFPAY ==
[2024-02-05] VITALS (14 sets, daily range): BP systolic 117–133; BP diastolic 56–93; PULSE 76–96; TEMP 36.2
--- OUTSIDE RECORDS SUMMARY | 2024-02-05 16:34 | XMS_ITS | CCD ---
Author Organization [facility] Care Team Providers Care Non Acoustic Operator Name Role Phone Kadie Bird MD Primary Care Provider KADIE BIRD Primary Care Unavailable LIZZY PYLE Attending Unavailable Melanie GIRON Attending Unavailable Unavailable Primary Care Provider Unavailabl e Unavailable Primary Care Provider Unavailabl e LILIAN BERRY Attending Unavailable KRISTI, LILIAN Attending Unavailable LILY, MICHELLE Attending Unavailable KRISTI, LILIAN Attending Unavailable LILY, MICHELLE Attending Unavailable LILY, MICHELLE Attending Unavailable KRISTI, LILIAN Attending Unavailable LILY, MICHELLE Attending Unavailable KRISTI, LILIAN Attending Unavailable LILY, MICHELLE Attending Unavailable Medications Current Medications Medication Drug Class(es) Dates Sig (Normalized) Sig (Original) loratadine 10 mg oral tablet (1 source) Start: 07-05-2021 take 1 tablet by mouth once daily loratadine (CLARITIN) 10 MG tablet Take 1 tablet by mouth daily 30 tablet 1 07/05/2021 Active progesterone 200 mg oral capsule (4 sources) Progesterone take 1 capsule by mouth in the morning progesterone (PROMETRIUM) 200 mg capsule Take 1 capsule (200 mg total) by mouth in the morning. Active Completed/Discontinued Medications Medication Drug Class(es) Dates Sig (Normalized) Sig (Original) predniSONE 20 mg oral tablet (2 sources) Start: 07-05-2021 End: 07-05-2021 predniSONE (DELTASONE) tablet 40 mg Start: 07-05-2021 End: 07-10-2021 take 1 tablet by mouth once daily predniSONE (DELTASONE) 20 MG tablet Take 1 tablet by mouth daily for 5 doses 5 tablet 0 07/05/2021 07/10/2021 Active Problems Active Problems Problem Classification Problem Date Documented Da te Episodic/Chronic Other complications of (5 sources) growth restriction; Translations: [Maternal care for other known or suspected poor growth, unspecified trimester, not applicable or unspecified] Onset: 12-24-2023 12-24-2023 Episodic Other lower respiratory disease (1 source) Dyspnea; Translations: [Shortness of breath] Episodic Other and delivery including normal (20 sources) Third trimester ; Translations: [Encounter for supervision of normal , unspecified, third trimester] Onset: 10-16-2023 12-01-2023 Episodic Other upper respiratory disease (1 source) Seasonal allergy; Translations: [Other seasonal allergic rhinitis] Chronic Residual codes; unclassified (2 sources) Gestation period, 30 weeks; Translations: [30 weeks gestation of ] 12-01-2023 Episodic Residual codes; unclassified (2 sources) Gestation period, 32 weeks; Translations: [32 weeks gestation of ] 12-15-2023 Episodic Residual codes; unclassified (2 sources) Gestation period, 34 weeks; Translations: [34 weeks gestation of ] 12-31-2023 Episodic Residual codes; unclassified (2 sources) Gestation period, 37 weeks; Translations: [37 weeks gestation of ] 01-21-2024 Episodic Residual codes; unclassified (2 sources) Gestation period, 38 weeks; Translations: [38 weeks gestation of ] 01-28-2024 Episodic Short gestation; low weight; and growth retardation (2 sources) [id number] baby; Translations: [Brandon small for gestational age, unspecified weight] 12-15-2023 Episodic Unclassified (12 sources) OB Reminders Onset: 09-18-2023 09-18-2023 Past or Other Problems Problem Classification Problem Date Documented Date Episodic/Chronic Hemorrhage during ; abruptio placenta; placenta previa (17 sources) Low lying placenta; Translations: [Low lying placenta NOS or without hemorrhage, unspecified trimester] Onset: 10-16-2023 10-16-2023 Episodic Other screening for suspected conditions (not mental disorders or infectious disease) (12 sources) Patient encounter status; Translations: [Encounter for screening for diabetes mellitus] Onset: 10-16-2023 10-16-2023 Episodic Residual codes; unclassified (12 sources) Gestation period, 23 weeks; Translations: [23 weeks gestation of ] Onset: 08-22-2024 08-22-2024 Episodic Residual codes; unclassified (12 sources) H/O: miscarriage; Translations: [Personal history of other complications of , childbirth and the puerperium] Onset: 10-16-2023 10-16-2023 Episodic Results Test Name Value Interpretation Reference Range Facility Urinalysis macro (dipstick) panel (U)on 01-28-2024 Bilirubin, UA Negative Negative - 4(70) +++ mg/dL [facility] Blood, UA Negative Negative - 50 Main/mcL [facility] Clarity, UA Clear [facility] Color, UA Yellow [facility] Glucose, UA Negative Negative - 1999(110) ++++ mg/dL [facility] Interpretation and review of laboratory results Abnormal [facility] Ketones, UA Negative Negative - 160(16) ++++ mg/dL [facility] Leukocytes, UA Negative Negative - 500+++ Fausto/mcL [facility] Nitrite, UA Negative Negative - Positive [facility] pH, UA 7 5 - 9 [facility] Protein, UA Positive Negative - 1999(20) ++++ mg/dL [facility] Comment on above: 100 Spec Grav, UA 1.025 1 - 1.03 [facility] Urobilinogen, UA 0.2 0.2 - 12 mg/dL [facility] Urinalysis macro (dipstick) panel (U)on 01-21-2024 Bilirubin, UA Negative Negative - 4(70) +++ mg/dL [facility] Blood, UA Negative Negative - 50 Main/mcL [facility] Clarity, UA Clear [facility] Color, UA Yellow [facility] Glucose, UA Negative Negative - 1999(110) ++++ mg/dL [facility] Interpretation and review of laboratory results Abnormal [facility] Ketones, UA Positive Negative - 160(16) ++++ mg/dL [facility] Comment on above: trace Leukocytes, UA Negative Negative - 500+++ Fausto/mcL [facility] Nitrite, UA Negative Negative - Positive [facility] pH, UA 7 5 - 9 [facility] Protein, UA Positive Negative - 1999(20) ++++ mg/dL [facility] Comment on above: 100 Spec Grav, UA 1.025 1 - 1.03 [facility] Urobilinogen, UA 0.2 0.2 - 12 mg/dL [facility] Urinalysis macro (dipstick) panel (U)on 12-31-2023 Bilirubin, UA Negative Negative - 4(70) +++ mg/dL [facility] Blood, UA Negative Negative - 50 Main/mcL [facility] Clarity, UA Clear [facility] Color, UA Yellow [facility] Glucose, UA Negative Negative - 1999(110) ++++ mg/dL [facility] Interpretation and review of laboratory results Abnormal [facility] Ketones, UA Negative Negative - 160(16) ++++ mg/dL [facility] Leukocytes, UA Negative Negative - 500+++ Fausto/mcL [facility] Nitrite, UA Negative Negative - Positive [facility] pH, UA 6.5 5 - 9 [facility] Protein, UA Positive Negative - 1999(20) ++++ mg/dL [facility] Comment on above: 30 mg Spec Grav, UA 1.025 1 - 1.03 [facility] Urobilinogen, UA 0.2 0.2 - 12 mg/dL [facility] Urinalysis macro (dipstick) panel (U)on 12-15-2023 Bilirubin, UA Negative Negative - 4(70) +++ mg/dL [facility] Blood, UA Positive Negative - 50 Main/mcL [facility] Comment on above: trace Clarity, UA Clear [facility] Color, UA Yellow [facility] Glucose, UA Negative Negative - 1999(110) ++++ mg/dL [facility] Interpretation and review of laboratory results Abnormal [facility] Ketones, UA Negative Negative - 160(16) ++++ mg/dL [facility] Leukocytes, UA Negative Negative - 500+++ Fausto/mcL [facility] Nitrite, UA Negative Negative - Positive [facility] pH, UA 7 5 - 9 [facility] Protein, UA Negative Negative - 1999(20) ++++ mg/dL [facility] Spec Grav, UA 1.015 1 - 1.03 [facility] Urobilinogen, UA 1.0 0.2 - 12 mg/dL [facility] Urinalysis macro (dipstick) panel (U)on 12-01-2023 Bilirubin, UA Negative Negative - 4(70) +++ mg/dL [facility] Blood, UA Negative Negative - 50 Main/mcL [facility] Clarity, UA Clear [facility] Color, UA Yellow [facility] Glucose, UA Negative Negative - 1999(110) ++++ mg/dL [facility] Interpretation and review of laboratory results Abnormal [facility] Ketones, UA Negative Negative - 160(16) ++++ mg/dL [facility] Leukocytes, UA Negative Negative - 500+++ Fausto/mcL [facility] Nitrite, UA Negative Negative - Positive [facility] pH, UA 7.0 5 - 9 [facility] Protein, UA Negative Negative - 1999(20) ++++ mg/dL [facility] Spec Grav, UA 1.025 1 - 1.03 [facility] Urobilinogen, UA 0.2 0.2 - 12 mg/dL [facility] Quantiferon-TB Plus (Client Incubated)on 10-22-2023 Gamma interferon background IA Qn (Bld) 0.00 International_Unit/ mL Invalid Interpretation Code [facility] Comment on above: Performed By: #### 1 [id number] #### [facility] [address] [place] [address] M. tuberculosis stim IFN-g by CD4+ CD8+ T-cells corrected for background Qn (Bld) 0.00 International_Unit/ mL Invalid Interpretation Code [facility] Comment on above: Performed By: #### 1 [id number] #### [facility] [address] [place] [address] M. tuberculosis stim IFN-g by CD4+ T-cells corrected for background Qn (Bld) 0.00 International_Unit/ mL Invalid Interpretation Code [facility] Comment on above: Performed By: #### 1 [id number] #### [facility] [address] [place] [address] M. tuberculosis stim IFN-g Ql (Bld) [Interp] Negative Invalid Interpretation Code Negative [facility] Comment on above: Result Comment: No [...] interferon gamma. Chemiluminescence immunoassay methodology Performed at: [address] [id number] PhD Ashtyn Baig Performed By: #### 1 [id number] #### [facility] [address] [place] [address] Mitogen stimulated gamma interferon corrected for background Qn (Bld) >10.00 Invalid Interpretation Code [facility] Comment on above: Performed By: #### 1 [id number] #### [facility] [address] [place] [address] Service comment (Unsp spec) [Interp] Comment Invalid Interpretation Code [facility] Comment on above: Result Comment: Raza [...] for the test. Performed By: #### 1 [id number] #### [facility] [address] [place] [address] Hep Bs Abon 10-21-2023 HBV surface Ab Ql (S) Non-Reactive Invalid Interpretation Code [facility] Comment on above: Result Comment: Non Reactive: Not immune to HBV infection. Equivocal: Unable to determine if anti-HBs is present at levels consistent with immunity. Reactive: Anti-HBs concentration detected at greater than 10 mIU/mL. Individual is considered to be immune to infection with HBV. Performed at: [facility] [address] [place] [id number] PhD Ashtyn Baig Performed By: #### 2 [id number] #### [facility] [address] [place] [address] Measles/Mumps/Rubella Immuni tyon 10-21-2023 MeV IgG IA Qn (S) 23.8 A unit/mL Invalid Interpretation Code Immune >16.4 [facility] Comment on above: Result Comment: Nega tive <13.5 Equivocal 13.5 - 16.4 Positive >16.4 Presence of antibodies to Rubeola is presumptive evidence of immunity except when acute infection is suspected. Performed By: #### 3 [id number] #### [facility] [address] [place] [address] MuV IgG IA Qn (S) 86.3 A unit/mL Invalid Interpretation Code Immune >10.9 [facility] Comment on above: Result Comment: Nega tive <9.0 Equivocal 9.0 - 10.9 Positive >10.9 A positive result generally indicates past exposure to Mumps virus or previous vaccination. Performed at: [address] [id number] PhD Ashtyn Baig Performed By: #### 3 [id number] #### [facility] [address] [place] [address] Rubella virus IgG Qn (S) 1.45 [IU]/mL Invalid Interpretation Code Immune >0.99 [facility] Comment on above: Result Comment: Non- immune <0.90 Equivocal 0.90 - 0.99 Immune >0.99 Performed By: #### 3 [id number] #### [facility] [address] [place] [address] Varic IgGon 10-21-2023 VZV IgG IA Qn (S) 228 Invalid Interpretation Code Immune >165 [facility] Comment on above: Result Comment: Nega tive <135 Equivocal 135 - 165 Positive >165 A positive result generally indicates exposure to the pathogen or administration of specific immunoglobulins, but it is not indication of active infection or stage of disease. Performed at: [address] [id number] PhD Ashtyn Baig Performed By: #### 1 [id number] #### [facility] [address] [place] [address] AFP Single Marker Scrn, Mate rnal, Serumon 09-18-2023 Ms Alpha-Fetoprotein Negative [facility] CBC without diffon Hematocrit (Bld) [Volume fraction] 38.7 % [facility] Hemoglobin (Bld) [Mass/Vol] 13 g/dL [facility] Platelets (Bld) [#/Vol] 155 10*3/uL [facility] Rbc Mcv (Fl) By Automated Count 91.1 [facility] HIV 1&2 AB/AG Screen (P24 AG )on 09-18-2023 HIV 1&2 AB/AG Non-Reactive [facility] Hepatitis B surface antigeno n 09-18-2023 Hepatitis B Surface Antigen Negative [facility] Hepatitis C(HCV) Ab w/ Refle x to PCRon 09-18-2023 HCV Ab Ql (S) Non-Reactive [facility] No Panel Informationon 09-17 [facility] Rubella IGG immune statuson 09-18-2023 Rubella immune IgG 1.34 [facility] Syphilis Total(Unknown Syphi lis Status)on 09-18-2023 Syphilis Non-Reactive [facility] Type and screenon 09-18-2023 Abo/Rh(D) Positive [facility] Vital Signs Date Time Vital Sign Value Performing Clinician Faci lity 01-28-2024 09:13-0500 Body mass index (BMI) [Ratio] 36.23 kg/m2 Michelle MOORE Work Phone: [facility] 01-28-2024 09:13-0500 Body weight 81.38 kg Michelle MOORE Work Phone: [facility] 01-28-2024 09:13-0500 Diastolic blood pressure 70 mm[Hg] Michelle MOORE Work Phone: [facility] 01-28-2024 09:13-0500 Systolic blood pressure 120 mm[Hg] Michelle MOORE Work Phone: [facility] 01-21-2024 16:23-0500 Body mass index (BMI) [Ratio] 35.91 kg/m2 Wami Work Phone: [facility] 01-21-2024 16:23-0500 Body weight 80.65 kg Lilian Kristi DO Work Phone: [facility] 01-21-2024 16:23-0500 Diastolic blood pressure 70 mm[Hg] Lilian Kristi DO Work Phone: [facility] 01-21-2024 16:23-0500 Systolic blood pressure 120 mm[Hg] Lilian Kristi DO Work Phone: [facility] 12-31-2023 08:43-0500 Body mass index (BMI) [Ratio] 34.34 kg/m2 Michelle Redbird PA Work Phone: [facility] 12-31-2023 08:43-0500 Body weight 77.11 kg Michelle Redbird PA Work Phone: [facility] 12-31-2023 08:43-0500 Diastolic blood pressure 72 mm[Hg] Michelle Lily PA Work Phone: [facility] 12-31-2023 08:43-0500 Systolic blood pressure 118 mm[Hg] Michelle Lily PA Work Phone: [facility] 12-15-2023 08:41-0400 Body mass index (BMI) [Ratio] 32.32 kg/m2 Lilian Kristi DO Work Phone: [facility] 12-15-2023 08:41-0400 Body weight 72.58 kg Lilian Kristi DO Work Phone: [facility] 12-15-2023 08:41-0400 Diastolic blood pressure 64 mm[Hg] Lilian Kristi DO Work Phone: [facility] 12-15-2023 08:41-0400 Systolic blood pressure 110 mm[Hg] Lilian Kristi DO Work Phone: [facility] 12-01-2023 08:57-0400 Body mass index (BMI) [Ratio] 32.4 kg/m2 Michelle Lily PA Work Phone: [facility] 12-01-2023 08:57-0400 Body weight 72.76 kg Michelle Lily PA Work Phone: [facility] 12-01-2023 08:57-0400 Diastolic blood pressure 60 mm[Hg] Michelle MOORE Work Phone: [facility] 12-01-2023 08:57-0400 Systolic blood pressure 110 mm[Hg] Michelle MOORE Work Phone: [facility] 07-05-2021 22:45-0400 Body temperature 98.6 [degF] Lizzy Pyle MD Work Phone: [facility] 07-05-2021 22:45-0400 Body weight 56.56 kg Lizzy Pyle MD Work Phone: [facility] 07-05-2021 22:45-0400 Diastolic blood pressure 90 mm[Hg] Lizzy Pyle MD Work Phone: [facility] 07-05-2021 22:45-0400 Heart rate 97 /min Lizzy Pyle MD Work Phone: [facility] 07-05-2021 22:45-0400 Respiratory rate 16 /min Lizzy Pyle MD Work Phone: [facility] 07-05-2021 22:45-0400 SaO2% (BldA) [Mass fraction] 96 % Lizzy Pyle MD Work Phone: [facility] 07-05-2021 22:45-0400 Systolic blood pressure 126 mm[Hg] Lizzy Pyle MD Work Phone: [facility] Encounters Encounter Date Encounter Type Care Provider Facility Start: 01-28-2024 End: 01-28-2024 Bamboo flowsheet Michelle MOORE Work Phone: [facility] Start: 01-28-2024 End: 01-28-2024 Bamboo flowsheet Michelle MOORE Work Phone: [facility] Start: 01-28-2024 End: 01-28-2024 Office outpatient visit 15 minutes Michelle MOORE Work Phone: [facility] Comment on above: 38 weeks gestation o f ; Third trimester Start: 01-28-2024 End: 01-28-2024 ambulatory MICHELLE BAUTISTA Not Available Start: 01-21-2024 End: 01-21-2024 flow sheet Lilian Kristi DO Work Phone: [facility] Comment on above: 37 weeks gestation o f ; Third trimester Start: 01-21-2024 End: 01-21-2024 ambulatory LILIAN KRISTI Not Available Start: 12-31-2023 End: 12-31-2023 Bamboo flowsheet Michelle MOORE Work Phone: [facility] Start: 12-31-2023 End: 12-31-2023 Bamboo flowsheet Michelle MOORE Work Phone: [facility] Start: 12-31-2023 End: 12-31-2023 flow sheet Michelle MOORE Work Phone: [facility] Comment on above: 34 weeks gestation o f Start: 12-31-2023 End: 12-31-2023 ambulatory MICHELLE BAUTISTA Not Available Start: 12-30-2023 End: 12-30-2023 Telephone encounter Lilian R Kristi DO Work Phone: [facility] Start: 12-29-2023 End: 12-29-2023 Telephone encounter Martell Kay [facility] [place] Start: 12-24-2023 End: 12-24-2023 Chart abstracting Tamir Teixeira MD Work Phone: [facility] Start: 12-24-2023 End: 12-24-2023 Telephone encounter Nataliia Cheng LPN [facility] Start: 12-22-2023 End: 12-22-2023 ambulatory Facility:[facility] Start: 12-15-2023 End: 12-15-2023 Office outpatient visit 15 minutes Lilian Kristi DO Work Phone: [facility] Comment on above: Third trimester preg tyler; 32 weeks gestation of ; SGA (small for gestational age) Start: 12-15-2023 End: 12-15-2023 ambulatory LILIAN KRISTI Not Available Start: 12-01-2023 End: 12-01-2023 Office outpatient visit 15 minutes Michlele MOORE Work Phone: [facility] Comment on above: 30 weeks gestation o f ; Third trimester Start: 12-01-2023 End: 12-01-2023 ambulatory MICHELLE BAUTISTA Not Available Start: 11-17-2023 End: 11-17-2023 ambulatory MICHELLE BAUTISTA Not Available Start: 10-20-2023 End: 10-20-2023 ambulatory Melanie GIRON Facility[place] Start: 10-16-2023 End: 10-16-2023 ambulatory LILIAN KRISTI Not Available Start: 09-18-2023 End: 09-18-2023 ambulatory MICHELLE LILY Not Available Start: 08-19-2023 End: 08-19-2023 ambulatory LILIAN KRISTI Not Available Start: 07-18-2023 End: 07-18-2023 ambulatory LILIAN KRISTI Not Available Start: 04-02-2023 End: 04-02-2023 ambulatory LILIAN KRISTI Not Available Start: 07-06-2021 End: 07-06-2021 Emergency department patient visit KADIE Domínguez BIRD [facility] Start: 07-05-2021 End: 07-05-2021 Emergency department patient visit Lizzy Pyle MD Work Phone: [facility] Comment on above: Shortness of breath (Primary Dx); Seasonal allergies Procedures Date Procedure Procedure Detail Performing Clinician Start: 01-28-2024 Urnls dip stick/tabl et rgnt non-auto w/o micrscp Michelle MOORE Work Phone: Start: 01-21-2024 Urnls dip stick/tabl et rgnt non-auto w/o micrscp Lilian Kristi DO Work Phone: Start: 12-31-2023 Urnls dip stick/tabl et rgnt non-auto w/o micrscp Michelle MOORE Work Phone: Start: 12-15-2023 Urnls dip stick/tabl et rgnt non-auto w/o micrscp Lilian Berry DO Work Phone: Start: 12-01-2023 Urnls dip stick/tabl et rgnt non-auto w/o micrscp Michelle MOORE Work Phone: Start: 09-18-2023 Antibody screen Tamir dillard MD Work Phone: Start: 09-18-2023 Blood count complete automated Not In System Ref Prov Start: 09-18-2023 Hepatitis c antibody No t In System Ref Prov Start: 09-18-2023 HIV 1&2 AB/AG SCREEN (P24 AG) Not In System Ref Prov Start: 09-18-2023 Iaad ia hepatitis b surface antigen Not In System Ref Prov Start: 09-18-2023 TYPE AND SCREEN Not In System Ref Prov Plan of Treatment Date Care Activity Detail Author Start: 02-05-2024 End: 02-05-2024 Patient encounter procedure 02/05/2024 8:40 AM EST Routine [facility] [address] [place] [id number] Lilian Berry, DO [address] [address] [facility] Start: 01-28-2024 End: 01-28-2024 Patient encounter procedure [facility] Comment on above: Arrived Start: 01-21-2024 End: 01-20-2025 Strep B DNA probe, amplification Strep B DNA probe, amplification Lab Routine Third trimester Expected: 01/21/2024 (Approximate), Expires: 01/20/2025 [facility] Work Phone: Comment on above: Expected: 01/21/2024 (Approximate), Expires: 01/20/2025 Start: 01-05-2024 End: 01-05-2024 Patient encounter procedure 01/05/2024 9:40 AM EST Routine [facility] [address] [place] [address] Lilian Berry, DO [address] [place] [address] [facility] Start: 12-31-2023 End: 12-31-2023 Telemedicine consultation with patient 12/31/2023 2:15 PM EST Tele[facility] [place] [address] [place] [address] Tamir Teixeira MD [address], [address] [place] [id number] [facility] [place] Start: 12-31-2023 End: 12-31-2023 Patient encounter procedure [facility] Comment on above: Arrived Start: 12-15-2023 End: 12-14-2024 US for US OB SCAN FOR GROWTH Imaging Routine Third trimester SGA (small for gestational age) Expected: 12/15/2023 (Approximate), Expires: 12/14/2024 [facility] Work Phone: Comment on above: Expected: 12/15/2023 (Approximate), Expires: 12/14/2024 Start: 12-15-2023 End: 12-15-2023 Patient encounter procedure 12/15/2023 8:30 AM EDT Routine [facility] [address] [place] [id number] Lilian Berry, DO [address] [place] [address] [facility] Start: 10-26-2023 Influenza vaccination Influenza Vacc ine [facility] Start: 2021 Screening for malign ant neoplasm of cervix Pap Smear [facility] Start: 10-25-2021 Influenza vaccination Flu vacc ine (Season Ended) [facility] Start: 11-11-2019 DTaP,Tdap and Td Vaccines (1 - Tdap) DTaP,Tdap and Td Vaccines (1 - Tdap) [facility] Start: 11-11-2019 DTaP/Tdap/Td vaccine (1 - Tdap) DTaP/Tdap/Td vaccine (1 - Tdap) [facility] Start: 2018 Adult BMI Screening Adult BMI Screen ing [facility] Start: 2018 Hepatitis C screening Hepatitis C sc reen [facility] Start: 2016 Screening for Chlamy rupa trachomatis Chlamydia screen [facility] Start: 11-11-2015 [facility] Start: 2012 Depression Screen Depression Screen [facility] Start: 2012 Depression Screening Depression Scre ening [facility] Start: 2012 Tobacco Screening Tobacco Screening [facility] Start: 11-11-2011 HPV vaccine (1 - 2-d ose series) HPV vaccine (1 - 2-dose series) [facility] Start: 2005 COVID-19 Vaccine (1) COVID-19 Vaccin e (1) [facility] Start: 2001 Varicella vaccine (1 of 2 - 2-dose childhood series) Varicella vaccine (1 of 2 - 2-dose childhood series) [facility] Payers Date Payer Category Payer Unknown [id number] 2023 Medicaid HMO [employer] [id number] 2023 Private Health Insurance [id number] 2022 Unknown [id number] 2020 Private Health Insurance [id number] 2019 Medicaid [place]ICAID [place] [id number] 2019 Medicaid [id number] 2014 Unknown [id number]. [id number] 2000 Unknown [id number] 2.16.840.1.041606.3.579.2. 1258 2000 Unknown [id number] 2.16.840.1.648988.3.579.2. 1258 2000 Unknown [id number] 2.16.840.1.791136.3.579.2. 1258 2000 Unknown [id number] 2.16.840.1.375782.3.579.2. 1258 2000 Unknown [id number] 2.16.840.1.366105.3.579.2. 1258 2000 Unknown [id number] 2.16.840.1.631461.3.579.2. 1258 2000 Unknown [id number] 2.16.840.1.609508.3.579.2. 1258 2000 Unknown [id number] 2.16.840.1.919623.3.579.2. 1258 2000 Unknown [id number] 2.16.840.1.583380.3.579.2. 1258 2000 Unknown [id number] 2.16.840.1.223159.3.579.2. 1258 2000 Unknown [id number] 2.16.840.1.952691.3.579.2. 1259 1972 Unknown [id number] 2.16.840.1.093367.3.579.2. 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 (finding) [facility] Phone: Start: 2000 Sex Assigned At Not on file [facility] Phone: Start: 06-25-2021 End: 07-06-2021 Exposure to SARS-CoV-2 (event) Not sure [facility] Phone: Start: 12-01-2023 End: 01-28-2024 Alcoholic beverage intake Lifetime non-drinker (finding) [facility] Start: 10-16-2023 History of Social function [facility] Start: 10-16-2023 Tobacco use panel [facility] Start: 05-16-2023 [facility] stat [facility] Tobacco smoking consumption unknown [facility] Start: 12-23-2023 Sex Female (finding) [facility] Goals Date Patient Goal Desired Activity /State Personal health goal Clinical Notes 07-05-2021 to 01-28-2024 TERESA Tapia - 01/28/2024 9:20 AM Orestes Vidal LPN - 01/21/2024 3:50 PM TERESA Mao - 12/31/2023 8:30 AM ESTTelephone Encounter - Rochelle Cervantes - 12/30/2023 3:49 PM ESTInstructions Note Date & Type Note Facility 01-28-2024 History of Presen t illness Narrative Reason [...] reviewed. Vitals: Estimated body mass index is 36.23 kg/m as calculated from the following: Height as of 04/02/23: 4' 11 . Weight as of this encounter: 179 lb 6.4 oz. BP: 120/70 Patient's last menstrual period was 05/02/2023. ASSESSMENT & PLAN ICD-10-CM 1. 38 weeks gestation of Z3A.38 POCT urinalysis dipstick manually resulted 2. Third trimester Z34.93 POCT urinalysis dipstick manually resulted Return OB: Patient presents today for a routine obstetrics appointment. Patient is currently 38w5d . Patient states she is doing well but has complaints of being tired due to current . Patient has verbalizes frequent movement. labor precautions was discussed/given and patient was instructed to perform kick counts three times a day. Orders Placed This Encounter Procedures POCT urinalysis dipstick manually resulted Follow Up: Patient is to return to office in 1 week for routine OB appointment. Documented by TERESA Tapia on behalf of: TERESA Tapia documented in this encounter [facility] 01-21-2024 History of Presen t illness Narrative Reason [...] nursing note reviewed. Exam conducted with a customer care representative present. Vitals: Estimated body mass index is 35.91 kg/m as calculated from the following: Height as of 04/02/23: 4' 11 . Weight as of this encounter: 177 lb 12.8 oz. BP: 120/70 Patient's last menstrual period was 05/02/2023. ASSESSMENT & PLAN ICD-10-CM 1. 37 weeks gestation of Z3A.37 POCT urinalysis dipstick manually resulted 2. Third trimester Z34.93 POCT urinalysis dipstick manually resulted Strep B DNA probe, amplification Strep B DNA probe, amplification Patient is doing well but has complaints of being tired and having maternal discomfort due to . Patient verbalized frequent movement and was instructed to perform kick counts three times per day. labor precautions were given, LARC consent was signed/declined, and GBS was obtained. Orders Placed This Encounter Procedures Strep B DNA probe, amplification POCT urinalysis dipstick manually resulted Follow Up: Patient is to return to office in 1 week for routine OB appointment Documented by Beverley Vidal LPN on behalf of: Lilian Berry DO documented in this encounter [facility] 12-31-2023 History of Presen t illness Narrative Reason [...] reviewed. Vitals: Estimated body mass index is 34.34 kg/m as calculated from the following: Height as of 04/02/23: 4' 11 . Weight as of this encounter: 170 lb. BP: 118/72 Patient's last menstrual period was 05/02/2023. ASSESSMENT & PLAN ICD-10-CM 1. 34 weeks gestation of Z3A.34 POCT urinalysis dipstick manually resulted Return OB: Patient presents today for a routine obstetrics appointment. Patient is currently 34w5d . Patient states she is doing well [...] week for routine OB appointment. Documented by Elena Jaeger MA on behalf of: TERESA Tapia documented in this encounter [facility] 12-30-2023 Miscellaneous Notes Formattin g of this note might be different from the original. Left voicemail to patient to reschedule appointment that was cancelled for 12/30, left number for patient to call back and reschedule appointment documented in this encounter [facility] 12-30-2023 Telephone encount er Note Left voicemail to patient to reschedule appointment that was cancelled for 12/30, left number for patient to call back and reschedule appointment [facility] 12-29-2023 Miscellaneous Notes Formattin g of this note might be different from the original. Pt called and relayed needed to cancel appt Friday due to work. Told pt we should look into rescheduling,but with being booked out I would have to get her information to our sinography supervisor wood room and would contact her. jose miguel documented in this encounter [facility] 12-29-2023 Telephone encount er Note Pt called and relayed needed to cancel appt Friday due to work. Told pt we should look into rescheduling,but with being booked out I would have to get her information to our sinography supervisor wood room and would contact her. jose miguel [facility] 12-29-2023 Miscellaneous Notes Formattin g of this note might be different from the original. Called pt and left message in regards letting her know that MFM is now on the first floor instead of the second floor jose miguel documented in this encounter [facility] 12-29-2023 Telephone encount er Note Called pt and left message in regards letting her know that MFM is now on the first floor instead of the second floor [facility] Miscellaneous Notes Formattin g of this note might be different from the original. Please call us back we are holding an bernardo for you. [facility]23 Telephone encount er Note Please call us back we are holding an bernardo for you. [facility] 12-22-2023 Note Nurse Consultation N ote Reason for Visit employee flu vaccine Medications Cortisporin Otic 1%-0.35%-33251 units/mL Soln-Otic, 4 drop(s), Otic, QID Naprosyn 500 mg Tab, 500 mg= 1 tab(s), Oral, BID ProAir HFA, Inhalation, QID Singulair 5 mg Tab-Chew, 5 mg= 1 tab(s), Chewed, qPM Allergies No Known Allergies [facility] 12-15-2023 History of Presen t illness Narrative [...] nursing note reviewed. Exam conducted with a customer care representative present. Vitals: Estimated body mass index is [...] Lilian Berry DO documented in this encounter [facility] 12-01-2023 History of Presen t illness Narrative [...] of: TERESA Tapia documented in this encounter [facility] 07-05-2021 Hospital Discharg e Brigida Spencer RN - 07/05/2021 Images from the original [...] pollen counts are high. Use a vacuum cleaner window with a HEPA filter or a double-thickness [...] Where can you learn more? Go to [email or web address] and sign in to your [email or web address] account. Enter L249 in the Search Health Information box to learn more about Managing Your Allergies: Care Instructions. If you do not have an account, please click on the Sign Up Now link. Current as of: April 05, 2020 Content Version: 13.2 [employer]. Care instructions adapted under license by [employer]. If you have questions about a medical condition or this instruction, always ask your healthcare professional. [employer] disclaims any warranty or liability for your [...] weeds. Allergies can be mild or severe. Knao-rfa-ysekjtt allergy medicine may helpwith some symptoms. Read [...] or twice a week. Use a vacuum cleaner window with a HEPA filter or a double-thickness [...] Where can you learn more? Go to [email or web address] and sign in to your [email or web address] account. Enter J912 in the Search Health Information box to learn more about Seasonal Allergies: Care Instructions. If you do not have an account, please click on the Sign Up Now link. Current as of: April 05, 2020 Content Version: 13.2 [employer]. Care instructions adapted under license by [employer]. If you have questions about a medical condition or this instruction, always ask your healthcare professional. [employer] disclaims any warranty or liability for your use of this information. The following attachments cannot be sent through Care Everywhere.Allergies (Allergic Rhinitis): Managing (Upper Sorbian)documented in this encounter [employer] Work Phone: Evaluation note Diagnosis Shortness of breath- Primary Seasonal allergies Allergic rhinitis, cause unspecified documented in this encounter [facility] Phone: evaluation note* Diagnosis 30 weeks gestation of Third trimester state, incidental [facility] Diagnosis Third trimester state, incidental 32 weeks gestation of SGA (small for gestational age) [id number] without mention of malnutrition, unspecified (weight) [facility] Diagnosis 34 weeks gestation of [facility] Diagnosis 37 weeks gestation of Third trimester state, incidental [facility] Diagnosis 38 weeks gestation of Third trimester state, incidental documented in this encounter [facility] Healthcare[facility]ructionsNot on filedocumented in this encounterPro[facility] System[facility]ructionsNot on filedocumented in this [facility] Advance Directives No Advanced Directives Records FoundDocuments on File Type Date 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 ACP-Advance Directive ACP-Power of Senior Advisor Summary Purpose Family History No Family History Records FoundNo Family History Records FoundNo Family History Records FoundNo Family History Records FoundNo Family History Records FoundNo Family History Records FoundNo Family History Records FoundNo Family History Records Found Additional Source Comments Reason for Visit (unrecogniz ed section and [...] Care Teams (unrecognized sec tion and content) Non Acoustic Operator Relationship Specialty Start Date End Date Kadie Bird MD [address] [place] [address] PCP - General 03/14/16 INFORMATION SOURCE (unrecogn ized section and content) DATE CREATED AUTHOR 07/07/2021 Genesis Avendaño spiralph DATE CREATED AUTHOR AUTHOR'S ORGANIZ ATION 10/22/2023 [place] Romero [facility] DATE CREATED AUTHOR AUTHOR'S ORGANIZ ATION 10/24/2023 Baer Romero [facility] DATE CREATED AUTHOR AUTHOR'S ORGANIZ ATION 12/23/2023 Baer Garland [facility] DATE CREATED AUTHOR AUTHOR'S ORGANIZ ATION 01/30/2024 [facility] FOR RECORDS PERTAINING TO PATIENTS WHO ARE [...] BE BASED ON THE PRIMARY CLINICAL RECORDS. [employer] provides no warranty or guarantee of the accuracy or completeness of information in this document.
[2024-02-05 17:20] LABS: Hematocrit 36.3 % (36.0-48.0); Hemoglobin 11.6 g/dL (12.0-16.0); Mean Corpuscular Hemoglobin 27.8 pg (26.7-34.0); Mean Corpuscular Volume 87.1 fL (81.0-99.0); Mean Platelet Volume 13.6 fL (9.5-13.5); Platelet Count 150 10^3/uL (150-450); Red Blood Count 4.17 10^6/uL (4.20-5.40); Red Cell Distribution Width 15.6 % (11.0-15.0); White Blood Count 11.2 10^3/uL (4.0-11.0)
[2024-02-05 17:41] LABS: Amphetamine Screen Urine NEGATIVE (NEGATIVE); Barbiturates Screen Urine NEGATIVE (NEGATIVE); Benzodiazepines Screen Urine NEGATIVE (NEGATIVE); Buprenorphine Screen Urine NEGATIVE (NEGATIVE); Cannabinoid Screen Urine NEGATIVE (NEGATIVE); Cocaine Screen Urine NEGATIVE (NEGATIVE); Methadone Screen Urine NEGATIVE (NEGATIVE); Methamphetamines Screen Urine NEGATIVE (NEGATIVE); Opiate Screen Urine NEGATIVE (NEGATIVE); Oxycodone Screen Urine NEGATIVE (NEGATIVE); Phencyclidine Screen Urine NEGATIVE (NEGATIVE); Tricyclic Antidepressant Urine NEGATIVE (NEGATIVE)
[2024-02-05] MEDS: DINOPROSTONE 10 MG VAG INSERT.ER VAGINAL (17:51)
[2024-02-05] MEDS: HYDROCORTISONE 1% CREAM 28 GRAM TUBE 1 APPLIC TOPICAL (20:29)
[2024-02-06] VITALS (46 sets, daily range): BP systolic 101–169; BP diastolic 59–102; PULSE 86–123; TEMP 35.8–36.4
[2024-02-06] MEDS: OXYTOCIN/0.9 % SODIUM CHLORIDE 10 UNITS/500 ML PLAST..BAG 6 UNIT IV (07:00)
[2024-02-06] MEDS: 0.9 % SODIUM CHLORIDE 1,000 ML 125 ML IV ×3 (07:01→12:36)
[2024-02-06] MEDS: NALBUPHINE HCL 10 MG/ML AMPULE IV (08:53)
[2024-02-06] MEDS: ROPIVACAINE HCL/PF 400 MG/200 ML PREMIX 6 MG EPIDURAL (10:56)
[2024-02-06] MEDS: OXYTOCIN/0.9 % SODIUM CHLORIDE 20 UNITS/1,000 ML PLAST..BAG 125 UNIT IV (15:58)
[2024-02-06] MEDS: CARBOPROST TROMETHAMINE 250 MCG/ML 1 ML VIAL IM (16:10)
--- NOTE | 2024-02-06 16:20 | PM.OBPRCVD ---
Procedure Intrapartal events: None Induction method: per misoprostol protocol Delivery augmentation: pitocin Delivery monitor: external FHT and external uterine Route of delivery: Episiotomy Description: none L&D Laceration Description: periurethral - 1st degree Delivery repair: Vicryl Estimated blood loss (mL): 450 Anesthesia type: Epidural Disposition: PACU Delivery date: 02/06/24 Gender: male presentation: vertex Placental delivery description: Spontaneous cord description: 3 Vessels
[2024-02-06] MEDS: GLYCERIN/WITCH HAZEL PADS 1 PAD TOPICAL (17:30)
[2024-02-06] MEDS: BENZOCAINE/MENTHOL 85 GRAM SPRAY BOTTLE 1 APPLIC TOPICAL (17:30)
[2024-02-06] MEDS: IBUPROFEN 600 MG TABLET PO (17:30)
[2024-02-06] MEDS: ACETAMINOPHEN 325 MG TABLET 650 MG PO (17:30)
[2024-02-07] VITALS: BP 121/58; PULSE 96; TEMP 36.8
[2024-02-07] MEDS: ACETAMINOPHEN 325 MG TABLET 650 MG PO ×2 (00:01→06:16)
[2024-02-07] MEDS: IBUPROFEN 600 MG TABLET PO ×4 (00:01→22:00)
[2024-02-07 07:08] LABS: Basophils Absolute Auto 0.1 10^3/uL (0.0-0.1); Basophils Percent Auto 0.4 % (0.2-2.0); Eosinophils Absolute Auto 0.4 10^3/uL (0.0-0.7); Eosinophils Percent Auto 2.9 % (0.9-7.0); Hematocrit 30.6 % (36.0-48.0); Hemoglobin 9.5 g/dL (12.0-16.0); Immature Granulocytes Abs Auto 0.05 10^3/uL (0.00-0.03); Immature Granulocytes Pct Auto 0.3 % (0.0-0.5); Lymphocytes Absolute Auto 2.3 10^3/uL (1.2-3.8); Lymphocytes Percent Auto 16.1 % (20.5-60.0); Mean Corpuscular Hemoglobin 27.2 pg (26.7-34.0); Mean Corpuscular Volume 87.7 fL (81.0-99.0); Mean Platelet Volume 12.7 fL (9.5-13.5); Monocytes Absolute Auto 0.7 10^3/uL (0.3-0.8); Monocytes Percent Auto 5.2 % (1.7-12.0); Neutrophils Absolute Auto 10.7 10^3/uL (1.4-6.5); Neutrophils Percent Auto 75.1 % (43.0-75.0); Platelet Count 138 10^3/uL (150-450); Red Blood Count 3.49 10^6/uL (4.20-5.40); White Blood Count 14.3 10^3/uL (4.0-11.0)
[2024-02-07 08:14] VITALS: BP 119/65; PULSE 80; TEMP 36.8
--- NOTE | 2024-02-07 09:48 | PM.OBPN ---
OB - PN: Subj Subjective Patient comments: no complaints and pain well controlled [place] status: doing well feeding status: exclusively Exam Constitutional Vital Signs, click to edit/add: Last Vital Signs Temp 98.3 F 02/07/24 00:00 Pulse 80 02/07/24 08:14 Resp 16 02/07/24 00:00 BP 119/65 02/07/24 08:14 O2 Del Method Room Air 02/07/24 00:00 Documenting provider has reviewed patient's vital signs: yes Common normals: no apparent distress and oriented x3 Exam limitations: altered mental status Orientation/consciousness: Yes awake, Yes oriented to person, Yes oriented to place and Yes oriented to time HENMT Common normals: normocephalic Head and scalp: normal to inspection Eye Common normals: EOMs intact bilaterally General eye: normal appearance of both eyes Neck & C-Spine Common normals: full ROM General: normal visual inspection Lymph Lymphatic: no lymphadenopathy noted Chest Common normals: inspection of chest normal Chest: abnormal inspection of the chest Respiratory Common normals: normal respiratory effort, no retractions, no use of accessory muscles and clear to auscultation bilaterally Effort & inspection: able to speak in complete sentences Cardio Common normals: regular rate and regular rhythm Rate: regular rate GI Common normals: Normal to inspection, nondistended, normoactive bowel sounds present, soft to palpation and non-tender Inspection: normal to inspection Palpation: soft Percussion: normal to percussion Common normals: no CVA tenderness Back & Pelvis Common normals: no CVA tenderness Extremity Common normals: normal to inspection Neuro Common normals: oriented x3 and moves all extremities Psych Common normals: mental status grossly normal, thought process normal, cooperative, affect normal, speech normal, activity/motor behavior normal, denies hallucinations, denies homicidal ideation and denies suicidal ideation Speech: normal speech Thought process: normal thought process Results Labs Labs: Short CBC 02/07/24 Range/Units 06:51 WBC 14.3 H (4.0-11.0) 10^3/uL Hgb 9.5 L (12.0-16.0) g/dL Hct 30.6 L (36.0-48.0) % Plt Count 138 L (150-450) 10^3/uL OB - PN: A/P Plan - Vaginal Delivery day: 1 Plan: routine care Time Spent with Patient Time: Total time spent is greater than 50% in coordination of care (as documented) at patient's floor/unit and/or counseling patient: Total time spent with greater than 50% in coordination of care (as documented) at patient's floor/unit and/or counseling patient: less than 15 minutes
[2024-02-07] MEDS: DIPHENHYDRAMINE HCL 25 MG CAPSULE PO (15:37)
[2024-02-07] MEDS: DOCUSATE SODIUM 100 MG CAPSULE PO (20:29)
[2024-02-07] MEDS: HYDROCORTISONE 1% CREAM 28 GRAM TUBE 1 APPLIC TOPICAL (22:46)
[2024-02-07 22:57] VITALS: BP 122/74; PULSE 79
[2024-02-07 23:00] VITALS: TEMP 36.6
--- NOTE | 2024-02-08 00:04 | PC.NURSE ---
Patient has red rash all over abdomen, legs, arms, feet, butt, neck. Rash is warm to touch. Patient denies pain with rash. Patient c/o extreme itching.
[2024-02-08] MEDS: HYDROXYZINE PAMOATE 25 MG CAPSULE PO (01:25)
[2024-02-08 01:50] LABS: Basophils Percent Auto 0.2 % (0.2-2.0); Eosinophils Absolute Auto 0.5 10^3/uL (0.0-0.7); Eosinophils Percent Auto 4.5 % (0.9-7.0); Hematocrit 31.4 % (36.0-48.0); Hemoglobin 9.7 g/dL (12.0-16.0); Immature Granulocytes Abs Auto 0.04 10^3/uL (0.00-0.03); Immature Granulocytes Pct Auto 0.4 % (0.0-0.5); Lymphocytes Absolute Auto 3.1 10^3/uL (1.2-3.8); Lymphocytes Percent Auto 28.9 % (20.5-60.0); Mean Corpuscular HGB Conc 30.9 g/dL (29.9-35.2); Mean Corpuscular Volume 90.5 fL (81.0-99.0); Mean Platelet Volume 12.5 fL (9.5-13.5); Monocytes Absolute Auto 0.6 10^3/uL (0.3-0.8); Monocytes Percent Auto 5.6 % (1.7-12.0); Neutrophils Absolute Auto 6.4 10^3/uL (1.4-6.5); Neutrophils Percent Auto 60.4 % (43.0-75.0); Platelet Count 137 10^3/uL (150-450); Red Blood Count 3.47 10^6/uL (4.20-5.40); Red Cell Distribution Width 16.3 % (11.0-15.0); White Blood Count 10.7 10^3/uL (4.0-11.0)
[2024-02-08 02:06] LABS: Alanine Aminotransferase 37 U/L (14-59); Albumin Globulin Ratio 0.6; Albumin Level 2.3 g/dL (3.4-5.0); Alkaline Phosphatase 96 U/L (46-116); Anion Gap 9.5; Aspartate Amino Transferase 36 U/L (15-37); BUN Creatinine Ratio 13.9; Bilirubin Total 0.4 mg/dL (0.2-1.0); Calcium 8.2 mg/dL (8.5-10.1); Carbon Dioxide 25.4 mmol/L (21.0-32.0); Chloride 109 mmol/L (98-107); Estimated GFR (African America >60 (>=60 mL/min/1.73m^2); Estimated GFR (Non-African Ame >60 (>=60 mL/min/1.73m^2); Globulin 4.1 g/dL; Glucose 79 mg/dL (74-106); Potassium 3.9 mmol/L (3.5-5.1); Sodium 140 mmol/L (136-145); Total Protein 6.4 g/dL (6.4-8.2)
[2024-02-08 09:06] VITALS: BP 142/72; PULSE 93; TEMP 35.6
[2024-02-08] MEDS: IBUPROFEN 600 MG TABLET PO (09:11)
[2024-02-08] MEDS: DOCUSATE SODIUM 100 MG CAPSULE PO (09:11)
--- NOTE | 2024-02-08 11:47 | P.OBPN_ITS ---
OB - PN: Subj Subjective Patient comments: no complaints and pain well controlled [place] status: doing well Exam Constitutional Vital Signs, click to edit/add: Last Vital Signs Temp 96.1 F L 02/08/24 09:06 Pulse 93 H 02/08/24 09:06 Resp 16 02/08/24 09:12 BP 142/72 H 02/08/24 09:06 O2 Del Method Room Air 02/08/24 09:12 Documenting provider has reviewed patient's vital signs: yes Common normals: no apparent distress Respiratory Common normals: normal respiratory effort and clear to auscultation bilaterally Cardio Common normals: regular rate and regular rhythm GI Common normals: Normal to inspection, nondistended, normoactive bowel sounds present Extremity Common normals: no clubbing, cyanosis or edema and no calf tenderness Results Labs Labs: Short CBC 02/08/24 Range/Units 01:30 WBC 10.7 (4.0-11.0) 10^3/uL Hgb 9.7 L (12.0-16.0) g/dL Hct 31.4 L (36.0-48.0) % Plt Count 137 L (150-450) 10^3/uL BMP 02/08/24 01:30 Sodium 140 Potassium 3.9 Chloride 109 H Carbon Dioxide 25.4 BUN 11.0 Creatinine 0.79 Glucose 79 Calcium 8.2 L Liver Function 02/08/24 Range/Units 01:30 Total Bilirubin 0.4 (0.2-1.0) mg/dL AST 36 (15-37) U/L ALT 37 (14-59) U/L Alkaline Phosphatase 96 (46-116) U/L Albumin 2.3 L (3.4-5.0) g/dL OB - PN: A/P Plan - Vaginal Delivery day: 2 Plan: routine care, discharge home and follow up 6 weeks Time Spent with Patient Time: Total time spent is greater than 50% in coordination of care (as documented) at patient's floor/unit and/or counseling patient: Total time spent with greater than 50% in coordination of care (as documented) at patient's floor/unit and/or counseling patient: less than 15 minutes
== END 2024-02-08 16:39 | disposition home or self-care (01) | DRG 807 ==
PROVIDERS: Midwife; Admitting Provider Obstetrics & Gynecology; Visit Provider Obstetrics & Gynecology
DX: O71.82 Other specified trauma to perineum and vulva (principal); Z37.0 Single live birth; Z3A.39 39 weeks gestation of pregnancy
CPT/HCPCS: 36415; 51701; 51702; 59050; 59410; 80053; 80307; 85025; 85027; 86850; 86900; 86901; J2300; J2795; Q0177

== ENCOUNTER 2024-02-10 08:35 | Outpatient (OUT) | payer OTHER, SELFPAY ==
--- OUTSIDE RECORDS SUMMARY | 2024-02-10 08:58 | XMS_ITS | CCD ---
Author Organization [facility] Care Team Providers Care Exchange Floor Manager Name Role Phone Kadie Bird MD Primary Care Provider KADIE BIRD Primary Care Unavailable LIZZY PYLE Attending Unavailable Melanie GIRON Attending Unavailable Unavailable Primary Care Provider Unavailabl e Unavailable Primary Care Provider Unavailabl e KRISTI, LILIAN Attending Unavailable KRISTI, LILIAN Attending Unavailable LILY, MICHELLE Attending Unavailable KRISTI, LILIAN Attending Unavailable LILY, MICHELLE Attending Unavailable LILY, MICHELLE Attending Unavailable KRISTI, LILIAN Attending Unavailable LILY, MICHELLE Attending Unavailable KRISTI, LILIAN Attending Unavailable LILY, MICHELLE Attending Unavailable KRISTI, LILIAN Attending Unavailable Medications Current Medications Medication Drug [...] low weight; and growth retardation (2 sources) [id number] baby; Translations: [Clawson small for gestational age, unspecified weight] 12-15-2023 Episodic Unclassified (13 sources) OB Reminders Onset: 09-18-2023 09-18-2023 Past or Other Problems Problem Classification Problem Date Documented Date Episodic/Chronic Hemorrhage during ; abruptio placenta; placenta previa (18 sources) Low lying placenta; Translations: [Low lying placenta NOS or without hemorrhage, unspecified trimester] Onset: 10-16-2023 10-16-2023 Episodic Other and delivery including normal (20 sources) Third trimester ; Translations: [Encounter for supervision of normal , unspecified, third trimester] Onset: 10-16-2023 12-01-2023 Episodic Other screening for suspected conditions (not mental disorders or infectious disease) (13 sources) Patient encounter status; Translations: [Encounter for screening for diabetes mellitus] Onset: 10-16-2023 10-16-2023 Episodic Residual codes; unclassified (13 sources) Gestation period, 23 weeks; Translations: [23 weeks gestation of ] Onset: 10-16-2023 10-16-2023 Episodic Residual codes; unclassified (13 sources) H/O: miscarriage; Translations: [Personal history of other complications of , childbirth and the puerperium] Onset: 10-16-2023 10-16-2023 Episodic Results Test Name Value Interpretation Reference Range Facility [facility] CBC WITH PLATELET NO DI FFERENTIALon 02-05-2024 Erythrocyte distribution width (RBC) [Ratio] 15.6 % High 11.0 - 15.0 % [facility] Hematocrit (Bld) [Volume fraction] 36.3 % 36.0 - 48.0 % [facility] Hemoglobin (Bld) [Mass/Vol] 11.6 g/dL Low 12.0 - 16.0 g/dL [facility] Interpretation and review of laboratory results Abnormal [facility] MCH (RBC) [Entitic mass] 27.8 pg 26.7 - 34.0 pg [facility] MCHC (RBC) [Mass/Vol] 32 g/dL 29.9 - 35.2 g/dL [facility] MCV (RBC) [Entitic vol] 87.1 fL 81.0 - 99.0 fL [facility] Platelet mean volume (Bld) [Entitic vol] 13.6 fL High 9.5 - 13.5 fL [facility] TBH PLT 150 [facility] TB RBC 4.17 Low [facility] TB WBC 11.2 High [facility] Urinalysis macro (dipstick) panel (U)on 01-28-2024 Bilirubin, UA Negative Negative - 4(70) +++ mg/dL [facility] Blood, UA Negative Negative - 50 Main/mcL [facility] Clarity, UA Clear [facility] Color, UA Yellow [facility] Glucose, UA Negative Negative - 1999(110) ++++ mg/dL [facility] Interpretation and review of laboratory results Abnormal [facility] Ketones, UA Negative Negative - 160(16) ++++ mg/dL [facility] Leukocytes, UA Negative Negative - 500+++ Fausto/mcL [facility] Nitrite, UA Negative Negative - Positive [facility] pH, UA 7 5 - 9 [facility] Protein, UA Positive Negative - 1999(20) ++++ mg/dL [facility] Comment on above: 100 Spec Grav, UA 1.025 1 - 1.03 [facility] Urobilinogen, UA 0.2 0.2 - 12 mg/dL [facility] Urinalysis macro (dipstick) panel (U)on 01-21-2024 Bilirubin, UA Negative Negative - 4(70) +++ mg/dL [facility] Blood, UA Negative Negative - 50 Main/mcL [facility] Clarity, UA Clear [facility] Color, UA Yellow [facility] Glucose, UA Negative Negative - 1999(110) ++++ mg/dL [facility] Interpretation and review of laboratory results Abnormal [facility] Ketones, UA Positive Negative - 160(16) ++++ mg/dL [facility] Comment on above: trace Leukocytes, UA Negative Negative - 500+++ Fausto/mcL [facility] Nitrite, UA Negative Negative - Positive [facility] pH, UA 7 5 - 9 [facility] Protein, UA Positive Negative - 1999(20) ++++ mg/dL [facility] Comment on above: 100 Spec Grav, UA 1.025 1 - 1.03 [facility] Urobilinogen, UA 0.2 0.2 - 12 mg/dL [facility] Urinalysis macro (dipstick) panel (U)on 12-31-2023 Bilirubin, UA Negative Negative - 4(70) +++ mg/dL [facility] Blood, UA Negative Negative - 50 Main/mcL [facility] Clarity, UA Clear [facility] Color, UA Yellow [facility] Glucose, UA Negative Negative - 1999(110) ++++ mg/dL [facility] Interpretation and review of laboratory results Abnormal [facility] Ketones, UA Negative Negative - 160(16) ++++ mg/dL [facility] Leukocytes, UA Negative Negative - 500+++ Fausto/mcL [facility] Nitrite, UA Negative Negative - Positive [facility] pH, UA 6.5 5 - 9 [facility] Protein, UA Positive Negative - 1999(20) ++++ mg/dL [facility] Comment on above: 30 mg Spec Grav, UA 1.025 1 - 1.03 [facility] Urobilinogen, UA 0.2 0.2 - 12 mg/dL [facility] Urinalysis macro (dipstick) panel (U)on 12-15-2023 Bilirubin, UA Negative Negative - 4(70) +++ mg/dL [facility] Blood, UA Positive Negative - 50 Main/mcL [facility] Comment on above: trace Clarity, UA Clear [facility] Color, UA Yellow [facility] Glucose, UA Negative Negative - 1999(110) ++++ mg/dL [facility] Interpretation and review of laboratory results Abnormal [facility] Ketones, UA Negative Negative - 160(16) ++++ mg/dL [facility] Leukocytes, UA Negative Negative - 500+++ Fausto/mcL [facility] Nitrite, UA Negative Negative - Positive [facility] pH, UA 7 5 - 9 [facility] Protein, UA Negative Negative - 1999(20) ++++ mg/dL [facility] Spec Grav, UA 1.015 1 - 1.03 [facility] Urobilinogen, UA 1.0 0.2 - 12 mg/dL [facility] Urinalysis macro (dipstick) panel (U)on 12-01-2023 Bilirubin, UA Negative Negative - 4(70) +++ mg/dL [facility] Blood, UA Negative Negative - 50 Main/mcL [facility] Clarity, UA Clear [facility] Color, UA Yellow [facility] Glucose, UA Negative Negative - 1999(110) ++++ mg/dL [facility] Interpretation and review of laboratory results Abnormal [facility] Ketones, UA Negative Negative - 160(16) ++++ mg/dL [facility] Leukocytes, UA Negative Negative - 500+++ Fausto/mcL [facility] Nitrite, UA Negative Negative - Positive [facility] pH, UA 7.0 5 - 9 [facility] Protein, UA Negative Negative - 1999(20) ++++ mg/dL [facility] Spec Grav, UA 1.025 1 - 1.03 [facility] Urobilinogen, UA 0.2 0.2 - 12 mg/dL [facility] Quantiferon-TB Plus (Client Incubated)on 10-22-2023 Gamma interferon background IA Qn (Bld) 0.00 International_Unit/ mL Invalid Interpretation Code [facility] Comment on above: Performed By: #### 1 [id number] #### [facility] [address] [place] [address] M. tuberculosis stim IFN-g by CD4+ CD8+ T-cells corrected for background Qn (Bld) 0.00 International_Unit/ mL Invalid Interpretation Code [facility] Comment on above: Performed By: #### 1 [id number] #### [facility] [address] [place] [address] M. tuberculosis stim IFN-g by CD4+ T-cells corrected for background Qn (Bld) 0.00 International_Unit/ mL Invalid Interpretation Code [facility] Comment on above: Performed By: #### 1 [id number] #### [facility] [address] [place] [id number] M. tuberculosis stim IFN-g Ql (Bld) [Interp] Negative Invalid Interpretation Code Negative [facility] Comment on above: Result Comment: No r [...] interferon gamma. Chemiluminescence immunoassay methodology Performed at: true[x] [facility] [id number] PhD Ashtyn Baig Performed By: #### 1 [id number] #### [facility] [address] [place] [address] Mitogen stimulated gamma interferon corrected for background Qn (Bld) >10.00 Invalid Interpretation Code [facility] Comment on above: Performed By: #### 1 [id number] #### [facility] [address] [place] [id number] Service comment (Unsp spec) [Interp] Comment Invalid Interpretation Code [facility] Comment on above: Result Comment: Raza tiFERON-TB [...] for the test. Performed By: #### 1 [id number] #### [facility] [address] [place] [address] Hep Bs Abon 10-21-2023 HBV surface Ab Ql (S) Non-Reactive Invalid Interpretation Code [facility] Comment on above: Result Comment: Non Reactive: Not immune to HBV infection. Equivocal: Unable to determine if anti-HBs is present at levels consistent with immunity. Reactive: Anti-HBs concentration detected at greater than 10 mIU/mL. Individual is considered to be immune to infection with HBV. Performed at: true[x] [address] [id number] PhD Ashtyn Baig Performed By: #### 2 [id number] #### [facility] [address] [place] [address] Measles/Mumps/Rubella Immuni tyon 10-21-2023 MeV IgG IA Qn (S) 23.8 A unit/mL Invalid Interpretation Code Immune >16.4 [facility] Comment on above: Result Comment: Nega tive <13.5 Equivocal 13.5 - 16.4 Positive >16.4 Presence of antibodies to Rubeola is presumptive evidence of immunity except when acute infection is suspected. Performed By: #### 3 [id number] #### [facility] [address] [place] [address] MuV IgG IA Qn (S) 86.3 A unit/mL Invalid Interpretation Code Immune >10.9 [facility] Comment on above: Result Comment: Nega tive <9.0 Equivocal 9.0 - 10.9 Positive >10.9 A positive result generally indicates past exposure to Mumps virus or previous vaccination. Performed at: true[x] [address] [id number] PhD Ashtyn Baig Performed By: #### 3 [id number] #### [facility] [address] [place] [address] Rubella virus IgG Qn (S) 1.45 [IU]/mL Invalid Interpretation Code Immune >0.99 [facility] Comment on above: Result Comment: Non- immune <0.90 Equivocal 0.90 - 0.99 Immune >0.99 Performed By: #### 3 [id number] #### [facility] [address] [place] [address] Varic IgGon 10-21-2023 VZV IgG IA Qn (S) 228 Invalid Interpretation Code Immune >165 [facility] Comment on above: Result Comment: Nega tive <135 Equivocal 135 - 165 Positive >165 A positive result generally indicates exposure to the pathogen or administration of specific immunoglobulins, but it is not indication of active infection or stage of disease. Performed at: [facility] [id number] PhD Ashtyn Baig Performed By: #### 1 [id number] #### [facility] [address] [place] [address] AFP Single Marker Scrn, Mate rnal, Serumon 09-18-2023 Ms Alpha-Fetoprotein Negative [facility] CBC without diffon Hematocrit (Bld) [Volume fraction] 38.7 % [facility] Hemoglobin (Bld) [Mass/Vol] 13 g/dL [facility] Platelets (Bld) [#/Vol] 155 10*3/uL [facility] Rbc Mcv (Fl) By Automated Count 91.1 [facility] HIV 1&2 AB/AG Screen (P24 AG )on 09-18-2023 HIV 1&2 AB/AG Non-Reactive [facility] Hepatitis B surface antigeno n 09-18-2023 Hepatitis B Surface Antigen Negative [facility] Hepatitis C(HCV) Ab w/ Refle x to PCRon 09-18-2023 HCV Ab Ql (S) Non-Reactive [facility] No Panel Informationon 09-17 [facility] Rubella IGG immune statuson 09-18-[address]ella [address].34 [facility] Syphilis Total(Unknown Syphi lis Status)on 09-18-2023 Syphilis Non-Reactive [facility] Type and screenon 09-18-2023 Abo/Rh(D) Positive [facility] Vital Signs Date Time Vital Sign Value Performing Clinician Branden perezy 01-28-2024 09:13-0500 Body mass index (BMI) [Ratio] 36.23 kg/m2 Michelle MOORE Work Phone: [facility] 01-28-2024 09:13-0500 Body weight 81.38 kg Michelle MOORE Work Phone: [facility] 01-28-2024 09:13-0500 Diastolic blood pressure 70 mm[Hg] Michelle MOORE Work Phone: [facility] 01-28-2024 09:13-0500 Systolic blood pressure 120 mm[Hg] Michelle MOORE Work Phone: [facility] 01-21-2024 16:23-0500 Body mass index (BMI) [Ratio] 35.91 kg/m2 Lilian Kristi DO Work Phone: [facility] 01-21-2024 16:23-0500 Body weight 80.65 kg Lilian Kristi DO Work Phone: [facility] 01-21-2024 16:23-0500 Diastolic blood pressure 70 mm[Hg] Lilian Kristi DO Work Phone: [facility] 01-21-2024 16:23-0500 Systolic blood pressure 120 mm[Hg] Lilian Kristi DO Work Phone: [facility] 12-31-2023 08:43-0500 Body mass index (BMI) [Ratio] 34.34 kg/m2 Michelle MOORE Work Phone: [facility] 12-31-2023 08:43-0500 Body weight 77.11 kg Michelle MOORE Work Phone: [facility] 12-31-2023 08:43-0500 Diastolic blood pressure 72 mm[Hg] Michelle MOORE Work Phone: [facility] 12-31-2023 08:43-0500 Systolic blood pressure 118 mm[Hg] Michelle MOORE Work Phone: [facility] 12-15-2023 08:41-0400 Body mass index (BMI) [Ratio] 32.32 kg/m2 Lilian Kristi DO Work Phone: [facility] 12-15-2023 08:41-0400 Body weight 72.58 kg Lilian Kristi DO Work Phone: [facility] 12-15-2023 08:41-0400 Diastolic blood pressure 64 mm[Hg] Lilian Kristi DO Work Phone: [facility] 12-15-2023 08:41-0400 Systolic blood pressure 110 mm[Hg] Lilian Kristi DO Work Phone: [facility] 12-01-2023 08:57-0400 Body mass index (BMI) [Ratio] 32.4 kg/m2 Michelle MOORE Work Phone: [facility] 12-01-2023 08:57-0400 Body weight 72.76 kg Michelle MOORE Work Phone: [facility] 12-01-2023 08:57-0400 Diastolic blood pressure 60 mm[Hg] Michelle MOORE Work Phone: [facility] 12-01-2023 08:57-0400 Systolic blood pressure 110 mm[Hg] Michelle MOORE Work Phone: [facility] 07-05-2021 22:45-0400 Body temperature 98.6 [degF] Lizzy Pyle MD Work Phone: [facility] 07-05-2021 22:45-0400 Body weight 56.56 kg Lizzy Pyle MD Work Phone: [facility] 07-05-2021 22:45-0400 Diastolic blood pressure 90 mm[Hg] Lizzy Pyle MD Work Phone: [facility] 07-05-2021 22:45-0400 Heart rate 97 /min Lizzy Pyle MD Work Phone: [facility] 07-05-2021 22:45-0400 Respiratory rate 16 /min Lizzy Pyle MD Work Phone: [email or web address] 07-05-2021 22:45-0400 SaO2% (BldA) [Mass fraction] 96 % Lizzy Pyle MD Work Phone: [email or web address] 07-05-2021 22:45-0400 Systolic blood pressure 126 mm[Hg] Lizzy Pyle MD Work Phone: [facility] Encounters Encounter Date Encounter Type Care Provider Facility Start: 02-05-2024 End: 02-06-2024 Clinisync Result Encounter Lilian Kristi DO Work Phone: [facility] Unsolicited Start: 02-05-2024 End: 02-06-2024 Clinisync Result Encounter Lilian Kristi DO Work Phone: [facility] Unsolic[facility] Start: 02-05-2024 End: 02-05-2024 ambulatory LILIAN KRISTI Not Available Start: 01-28-2024 End: 01-28-2024 Bamboo flowsheet Michelle MOORE Work Phone: [facility] Start: 01-28-2024 End: 01-28-2024 Bamboo flowsheet Michelle MOORE Work Phone: [facility] Start: 01-28-2024 End: 01-28-2024 Office outpatient visit 15 minutes Michelle MOORE Work Phone: [facility] Comment on above: 38 weeks [...] Kristi DO Work Phone: [facility] Start: 12-29-2023 End: 12-29-2023 Telephone encounter Martell Kay [facility] [place] Start: 12-24-2023 End: 12-24-2023 Chart abstracting Tamir Teixeira MD Work Phone: [facility] Start: 12-24-2023 End: 12-24-2023 Telephone encounter Nataliia Cheng LPN [facility] Start: 12-22-2023 End: 12-22-2023 ambulatory Facility:[facility] Start: 12-15-2023 End: 12-15-2023 Office outpatient visit [...] Available Start: 10-20-2023 End: 10-20-2023 ambulatory Melanie IGRON Facility:[facility] Start: 10-16-2023 End: 10-16-2023 ambulatory LILIAN KRISTI Not Available Start: 09-18-2023 End: 09-18-2023 ambulatory MICHELLE LILY Not Available Start: 08-19-2023 End: 08-19-2023 ambulatory LILIAN KRISTI Not Available Start: 07-18-2023 End: 07-18-2023 ambulatory LILIAN KRISTI Not Available Start: 04-02-2023 End: 04-02-2023 ambulatory LILIAN KRISTI Not Available Start: 07-06-2021 End: 07-06-2021 Emergency department patient visit KADIE Domínguez BIRD [facility] Start: 07-05-2021 End: 07-05-2021 Emergency department patient visit Lizzy Pyle MD Work Phone: [facility] ED Comment on above: Shortness of breath (Primary Dx); Seasonal allergies Procedures Date Procedure Procedure Detail Performing Clinician Start: 02-05-2024 HP CBC WITH PLATEL ET NO DIFFERENTIAL Lilian Kristi DO Work Phone: Start: 01-28-2024 Urnls dip stick/tabl et rgnt [...] AM EST Routine [facility] [address] [place] [phone] Lilian Berry, DO [address] [place], [place] [id number] [facility] Start: 01-28-2024 End: 01-28-2024 [...] AM EST Routine [facility] [address] [place] [phone] Lilian Berry, DO [address] [place], [place] [id number] [facility] Start: 12-31-2023 End: 12-31-2023 Telemedicine consultation with patient 12/31/2023 2:15 PM EST Telemedicine [facility] [address] [place] [address] Tamir Teixeira MD [address] [facility] [address] [place] [address] [facility] [place] Start: 12-31-2023 End: 12-31-2023 Patient encounter procedure [...] AM EDT Routine [facility] [address] [place] [phone] Lilian Berry, [address] [place] [address] [facility] Start: 10-26-2023 Influenza vaccination Influenza Vacc ine [facility] Start: 2021 Screening for malign ant neoplasm of cervix Pap Smear [facility] Start: 10-25-2021 Influenza vaccination Flu vacc ine (Season Ended) [facility] Start: 11-11-2019 DTaP,Tdap and Td Vaccines (1 - Tdap) DTaP,Tdap and Td Vaccines (1 - Tdap) [facility] Start: 11-11-2019 DTaP/Tdap/Td vaccine (1 - Tdap) DTaP/Tdap/Td vaccine (1 - Tdap) [facility] Start: 2018 Adult BMI Screening Adult BMI Screen ing [facility] Start: 2018 Hepatitis C screening Hepatitis C sc reen [facility] Start: 2016 Screening for Chlamy rupa trachomatis Chlamydia screen [facility] Start: 11-11-2015 HIV screening HIV screen [facility] Start: 2012 Depression Screen Depression Screen [facility] Start: 2012 Depression Screening Depression Scre ening [facility] Start: 2012 Tobacco Screening Tobacco Screening [facility] Start: 11-11-2011 HPV vaccine (1 - 2-d ose series) HPV vaccine (1 - 2-dose series) [facility] Start: 2005 COVID-19 Vaccine (1) COVID-19 Vaccin e (1) [facility] Start: 2001 Varicella vaccine (1 of 2 - 2-dose childhood series) Varicella vaccine (1 of 2 - 2-dose childhood series) [facility] Payers Date Payer Category Payer Unknown [id number] 2023 [facility] [id number] 2023 Private Health Insurance [id number] 2022 Unknown [id number] 2020 Private Health Insurance [id number] 2019 Medicaid [place] [id number] 2019 Medicaid [id number] 2014 Unknown [id number] 2000 Unknown [id number] [id number]. 1258 2000 Unknown [id number] 2.16.840.1.432941.3.579.2. 1258 2000 Unknown [id number] 2.16.840.1.238919.3.579.2. 1258 2000 Unknown [id number] 2.16.840.1.953032.3.579.2. 1258 2000 Unknown [id number] 2.16.840.1.654942.3.579.2. 1258 2000 Unknown [id number] 2.16.840.1.536526.3.579.2. 1258 2000 Unknown [id number] 2.16.840.1.013075.3.579.2. 1258 2000 Unknown [id number] 2.16.840.1.776677.3.579.2. 1258 2000 Unknown [id number] 2.16.840.1.147130.3.579.2. 1258 2000 Unknown [id number] 2.16.840.1.918088.3.579.2. 1258 2000 Unknown [id number] 2.16.840.1.706246.3.579.2. 1258 2000 Unknown [id number] 2.16.840.1.563896.3.579.2. 1259 1972 Unknown [id number] [id number]. 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 (finding) [employer]: Start: 2000 Sex Assigned At Not on file [facility] Phone: Start: 06-25-2021 End: 07-06-2021 Exposure to SARS-CoV-2 (event) Not sure [employer]: Start: 12-01-2023 End: 02-05-2024 Alcoholic beverage intake Lifetime non-drinker (finding) [facility] Start: 10-16-2023 History of Social function [facility] Start: 10-16-2023 Tobacco use panel [facility] Start: 05-16-2023 [facility] smoking stat [facility] Tobacco smoking consumption unknown [facility] Start: 12-23-2023 Sex Female (finding) [facility] Goals Date Patient [...] of: TERESA Tapia documented in this encounter [facility] 01-21-2024 History of Presen t illness Narrative [...] nursing note reviewed. Exam conducted with a weaver dobby loom present. Vitals: Estimated body mass index is [...] Lilian Berry DO documented in this encounter [facility] 12-31-2023 History of Presen t illness Narrative [...] of: TERESA Tapia documented in this encounter [facility] 12-30-2023 Miscellaneous Notes Formattin g of this note might be different from the original. Left voicemail to patient to reschedule appointment that was cancelled for 12/30, left number for patient to call back and reschedule appointment documented in this encounter [facility] 12-30-2023 Telephone encount er Note Left voicemail to patient to reschedule appointment that was cancelled for 12/30, left number for patient to call back and reschedule appointment [facility] 12-29-2023 Miscellaneous Notes Formattin g of this note might be different from the original. Pt called and relayed needed to cancel appt Friday due to work. Told pt we should look into rescheduling,but with being booked out I would have to get her information to our sinography supervisor grove and would contact her. jk documented in this encounter [facility] 12-29-2023 Telephone encount er Note Pt called and relayed needed to cancel appt Friday due to work. Told pt we should look into rescheduling,but with being booked out I would have to get her information to our sinography supervisor grove and would contact her. jk [facility] 12-29-2023 Miscellaneous Notes Formattin g of this note might be different from the original. Called pt and left message in regards letting her know that MFM is now on the first floor instead of the second floor jk documented in this encounter [facility] 12-29-2023 Telephone encount er Note Called pt and left message in regards letting her know that MFM is now on the first floor instead of the second floor jk [facility] 12-24-2023 Miscellaneous Notes Formattin g of this note might be different from the original. Please call us back we are holding an bernardo for you. [facility] Tele[facility] encount er Note Please call us back we are holding an bernardo for you. [facility] Nurse Consultation N ote Reason for Visit employee flu vaccine Medications Cortisporin Otic 1%-0.35%-90163 units/mL Soln-Otic, 4 drop(s), Otic, QID Naprosyn 500 mg Tab, 500 mg= 1 tab(s), Oral, BID ProAir HFA, Inhalation, QID Singulair 5 mg Tab-Chew, 5 mg= 1 tab(s), Chewed, qPM Allergies No Known Allergies [facility] 12-15-2023 History of Presen t illness Narrative [...] nursing note reviewed. Exam conducted with a weaver dobby loom present. Vitals: Estimated body mass index is [...] Lilian Berry DO documented in this encounter [facility] 12-01-2023 History of Presen t illness Narrative [...] of: TERESA Tapia documented in this encounter [facility] 07-05-2021 [facility] Discharg Brigida Turpin RN - 07/05/2021 Images from the original [...] pollen counts are high. Use a vacuum janitor and cleaner with a HEPA filter or a [...] Where can you learn more? Go to [email or web address] and sign in to your [employer] account. Enter L249 in the Search Health Information box to learn more about Managing Your Allergies: Care Instructions. If you do not have an account, please click on the Sign Up Now link. Current as of: April 05, 2020 Content Version: 13.2 [employer]. Care instructions adapted under license by [employer]. If you have questions about a medical condition or this instruction, always ask your healthcare professional. [employer] disclaims any warranty or liability for your [...] weeds. Allergies can be mild or severe. [id number] allergy medicine may helpwith some symptoms. Read [...] or twice a week. Use a vacuum janitor and cleaner with a HEPA filter or a [...] Where can you learn more? Go to [email or web address] and sign in to your [employer] account. Enter J912 in the Search Health Information box to learn more about Seasonal Allergies: Care Instructions. If you do not have an account, please click on the Sign Up Now link. Current as of: April 05, 2020 Content Version: 13.2 [employer]. Care instructions adapted under license by [employer]. If you have questions about a medical condition or this instruction, always ask your healthcare professional. [employer] disclaims any warranty or liability for your use of this information. The following attachments cannot be sent through Care Everywhere.Allergies (Allergic Rhinitis): Managing (Malagasy)documented in this encounter [employer]: Evaluation note Diagnosis Shortness of breath- Primary Seasonal allergies Allergic rhinitis, cause unspecified documented in this encounter [employer]: evaluation note* Diagnosis 30 weeks gestation of Third trimester state, incidental [facility] Diagnosis Third trimester state, incidental 32 weeks gestation of SGA (small for gestational age) [id number] without mention of malnutrition, unspecified (weight) [facility] Diagnosis 34 weeks gestation of [facility] Diagnosis 37 weeks gestation of Third trimester state, incidental [facility] Diagnosis 38 weeks gestation of Third trimester state, incidental documented in this encounter [facility] HealthcareInstructionsNot on filedocumented in this encounterPro[facility] SystemInstructionsNot on filedocumented in this encounterProA[facility] Advance Directives Documents on File Type Date Recorded 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 anation ACP-Advance Directive ACP-Power of Driver Utility Worker Summary Purpose Family History No Family History [...] Care Teams (unrecognized sec tion and content) Exchange Floor Manager Relationship Specialty Start Date End Date Kadie Bird MD [address] [place] [address] PCP - General 03/14/16 INFORMATION SOURCE (unrecogn ized section and content) DATE CREATED AUTHOR 07/07/2021 [facility] DATE CREATED AUTHOR AUTHOR'S ORGANIZ ATION 10/22/2023 Keyur Romero [facility] DATE CREATED AUTHOR AUTHOR'S ORGANIZ ATION 10/24/2023 Keyur Elmore [facility] DATE CREATED AUTHOR AUTHOR'S ORGANIZ ATION 12/23/2023 Keyur Romero [facility] DATE CREATED AUTHOR AUTHOR'S ORGANIZ ATION 02/08/2024 [facility] RECORDS PERTAINING TO PATIENTS WHO ARE [...] BE BASED ON THE PRIMARY CLINICAL RECORDS. [facility] [employer] [facility]. provides no warranty or guarantee of the accuracy or completeness of information in this document.
--- NOTE | 2024-02-10 17:38 | PC.NURSE ---
Chi, her and 4 day old Raoul arrive for follow up. Parents are doing well, we think Chi states is comfortable except muscles right side of abdomen are tender. No redness, edema noted. Does have rash on abdomen, arms thighs that started prior to delivery. continues to take medication prescribed by doctor for rash. VSS and assessment WNL. States milk is coming in better today. Brings feeding log with her, infant feeding 5-6 times in 24 hours. Discussed appropriate feeding intervals for baby. Parents return that he spends 60 minutes or more at the breast during feeds. Infant is IUGR delivered at 40 weeks. Discussed need for feedings every 1-3 hours, deeper latch and better milk transfer. Parents verbalize understanding. Baby alert, VSS and assessment WNL except for weight. Currently 11.5% below weight. Discussed waking to feed every 2 hours. Feed 10-15 each breast then mom to pump with Neptune hand pump for additional 10 ml and to syringe feed the extra milk. Will continue to do extra feeding until return visit 02/12/2024 at 1030. Parents report 5 wets (small) and 3 green stools since midnight. No further concerns voiced. Parents agree to feeding plan and are confident in ability to continue to breast feed successfully. Family home , will return on for continued support.
[2024-02-10 17:39] VITALS: BP 129/81; PULSE 76; TEMP 36.7; O2SAT 98
== END 2024-02-10 17:43 | disposition home or self-care (01) ==
LOC: FBCO 08:36
PROVIDERS: Visit Provider Obstetrics & Gynecology
DX: Z39.1 Encounter for care and examination of lactating mother (principal)

== ENCOUNTER 2024-02-12 08:12 | Outpatient (OUT) | payer OTHER, SELFPAY ==
--- OUTSIDE RECORDS SUMMARY | 2024-02-12 08:21 | XMS_ITS | CCD ---
Author Organization [facility] Care Team Providers Care Acrobatic Rigger Name Role Phone Kadie Bird MD Primary Care Provider KADIE BIRD Primary Care Unavailable LIZZY PYLE Attending Unavailable Melanie GIRON Attending Unavailable Unavailable Primary Care Provider Unavailabl e Unavailable Primary Care Provider Unavailabl e AKI BERRYY Attending Unavailable KRISTI, LILIAN Attending Unavailable LILY, [...] Hemorrhage during ; abruptio placenta; placenta previa (9 sources) Low lying placenta; Translations: [Low lying placenta NOS or without hemorrhage, unspecified trimester] Onset: 10-16-2023 10-16-2023 Episodic Other complications of (5 sources) growth restriction; [...] low weight; and growth retardation (2 sources) Xrxtr-lvz-dhiaf baby; Translations: [ small for gestational age, unspecified weight] 12-15-2023 Episodic Unclassified (4 sources) OB Reminders Onset: 09-18-2023 09-18-2023 Results Test Name Value Interpretation Reference Range Facility Urinalysis macro (dipstick) panel (U)on 12-15-2023 Bilirubin, UA Negative Negative - 4(70) +++ mg/dL [facility] Blood, UA Positive Negative - 50 Main/mcL [facility] Comment on above: trace Clarity, UA Clear [facility] Color, UA Yellow [facility] Glucose, UA Negative Negative - 1999(110) ++++ mg/dL [facility] Interpretation and review of laboratory results Abnormal [facility] Ketones, UA Negative Negative - 160(16) ++++ mg/dL [facility] Leukocytes, UA Negative Negative - 500+++ Fausto/mcL [facility] Nitrite, UA Negative Negative - Positive [facility] pH, UA 7 5 - 9 [facility] Protein, UA Negative Negative - 1999(20) ++++ mg/dL [facility] Spec Grav, UA 1.015 1 - 1.03 [facility] Urobilinogen, UA 1.0 0.2 - 12 mg/dL [facility] hospital Urinalysis macro (dipstick) panel (U)on 12-01-2023 Bilirubin, UA Negative Negative - 4(70) +++ mg/dL [facility] Blood, UA Negative Negative - 50 Main/mcL [facility] Clarity, UA Clear [facility] Color, UA Yellow [facility] Glucose, UA Negative Negative - 1999(110) ++++ mg/dL [facility] Interpretation and review of laboratory results Abnormal [facility] Ketones, UA Negative Negative - 160(16) ++++ mg/dL [facility] Leukocytes, UA Negative Negative - 500+++ Fausto/mcL [facility] Nitrite, UA Negative Negative - Positive [facility] pH, UA 7.0 5 - 9 [facility] Protein, UA Negative Negative - 1999(20) ++++ mg/dL [facility] Spec Grav, UA 1.025 1 - 1.03 [facility] Urobilinogen, UA 0.2 0.2 - 12 mg/dL Critical access hospital Quantiferon-TB Plus (Client Incubated)on 10-22-2023 Gamma interferon background IA Qn (Bld) 0.00 International_Unit/ mL Invalid Interpretation Code [facility] Comment on above: Performed By: #### 1 [id number] #### [facility] Laboratory [address] [place] [address] M. tuberculosis stim IFN-g by CD4+ CD8+ T-cells corrected for background Qn (Bld) 0.00 International_Unit/ mL Invalid Interpretation Code [facility] Comment on above: Performed By: #### 1 [id number] #### [facility] Laboratory [address] [place] [address] M. tuberculosis stim IFN-g by CD4+ T-cells corrected for background Qn (Bld) 0.00 International_Unit/ mL Invalid Interpretation Code [facility] Comment on above: Performed By: #### 1 [id number] #### [facility] Laboratory [address] [id number] M. tuberculosis stim IFN-g Ql (Bld) [Interp] Negative Invalid Interpretation Code Negative [facility] Comment on above: Result Comment: No r [...] interferon gamma. Chemiluminescence immunoassay methodology Performed at: [facility] [id number] PhD Ashtyn Baig Performed By: #### 1 [id number] #### [facility] Laboratory [address] [place] [address] Mitogen stimulated gamma interferon corrected for background Qn (Bld) >10.00 Invalid Interpretation Code [facility] Comment on above: Performed By: #### 1 [id number] #### [facility] Laboratory [address] [place] [address] Service comment (Unsp spec) [Interp] Comment Invalid Interpretation Code [facility] Comment on above: Result Comment: Raza tiFERON-TB [...] for the test. Performed By: #### 1 [id number] #### [facility] Laboratory [address] [place] [address] Hep Bs Abon 10-21-2023 HBV surface Ab Ql (S) Non-Reactive Invalid Interpretation Code [facility] Comment on above: Result Comment: Non Reactive: Not immune to HBV infection. Equivocal: Unable to determine if anti-HBs is present at levels consistent with immunity. Reactive: Anti-HBs concentration detected at greater than 10 mIU/mL. Individual is considered to be immune to infection with HBV. Performed at: [address] [id number] PhD Ashtyn Baig Performed By: #### 2 [id number] #### [facility] Laboratory [address] [place] [address] Measles/Mumps/Rubella Immuni tyon 10-21-2023 MeV IgG IA Qn (S) 23.8 A unit/mL Invalid Interpretation Code Immune >16.4 [facility] Comment on above: Result Comment: Nega tive <13.5 Equivocal 13.5 - 16.4 Positive >16.4 Presence of antibodies to Rubeola is presumptive evidence of immunity except when acute infection is suspected. Performed By: #### 3 [id number] #### [facility] Laboratory [address] [place] [address] MuV IgG IA Qn (S) 86.3 A unit/mL Invalid Interpretation Code Immune >10.9 [facility] Comment on above: Result Comment: Nega tive <9.0 Equivocal 9.0 - 10.9 Positive >10.9 A positive result generally indicates past exposure to Mumps virus or previous vaccination. Performed at: [address] [id number] PhD Ashtyn Baig Performed By: #### 3 [id number] #### [facility] Laboratory [address] [place] [address] Rubella virus IgG Qn (S) 1.45 [IU]/mL Invalid Interpretation Code Immune >0.99 [facility] Comment on above: Result Comment: Non- immune <0.90 Equivocal 0.90 - 0.99 Immune >0.99 Performed By: #### 3 [id number] #### [facility] [address] [place] [address] Varic IgGon 10-21-2023 VZV IgG IA Qn (S) 228 Invalid Interpretation Code Immune >165 [facility] Comment on above: Result Comment: Nega tive <135 Equivocal 135 - 165 Positive >165 A positive result generally indicates exposure to the pathogen or administration of specific immunoglobulins, but it is not indication of active infection or stage of disease. Performed at: [facility] [id number] PhD Ashtyn Baig Performed By: #### 1 [id number] #### [facility] [address] [place] [address] AFP Single Marker Scrn, Mate rnal, Serumon 09-18-2023 Ms Alpha-Fetoprotein Negative [facility] CBC without diffon Hematocrit (Bld) [Volume fraction] 38.7 % [facility] Hemoglobin (Bld) [Mass/Vol] 13 g/dL [facility] Platelets (Bld) [#/Vol] 155 10*3/uL [facility] Rbc Mcv (Fl) By Automated Count 91.[address] [facility] HIV 1&2 AB/AG Screen (P24 AG )on 09-18-2023 HIV 1&2 AB/AG Non-Reactive [facility] Hepatitis B surface antigeno n 09-18-2023 Hepatitis B Surface Antigen Negative [facility] Hepatitis C(HCV) Ab w/ Refle x to PCRon 09-18-2023 HCV Ab Ql (S) Non-Reactive [facility] No Panel Informationon 09-[address] [facility] Rubella IGG immune statuson 09-18-2023 Rubella immune IgG 1.34 [facility] Syphilis Total(Unknown Syphi lis Status)on 09-18-2023 Syphilis Non-Reactive [facility] Type and screenon 09-18-2023 Abo/Rh(D) Positive [facility] Vital Signs Date Time Vital Sign Value Performing Clinician Faci lity 12-15-2023 08:41-0400 Body mass index (BMI) [Ratio] 32.32 kg/m2 Lilian Kristi DO Work Phone: [facility] 12-15-2023 08:41-0400 Body weight 72.58 kg Lilian Kristi DO Work Phone: [facility] 12-15-2023 08:41-0400 Diastolic blood pressure 64 mm[Hg] Lilian Kristi DO Work Phone: [facility] 12-15-2023 08:41-0400 Systolic blood pressure 110 mm[Hg] Lilian Kristi DO Work Phone: [facility] 12-01-2023 08:57-0400 Body mass index (BMI) [Ratio] 32.4 kg/m2 Michelle MOORE Work Phone: [facility] 12-01-2023 08:57-0400 Body weight 72.76 kg Michelle MOORE Work Phone: [facility] 12-01-2023 08:57-0400 Diastolic blood pressure 60 mm[Hg] Michelle MOORE Work Phone: [facility] 12-01-2023 08:57-0400 Systolic blood pressure 110 mm[Hg] Michelle MOORE Work Phone: [facility] 07-05-2021 22:45-0400 Body temperature 98.6 [degF] Lizzy Pyle MD Work Phone: [facility] 07-05-2021 22:45-0400 Body weight 56.56 kg Lizzy Pyle MD Work Phone: [facility] 07-05-2021 22:45-0400 Diastolic blood pressure 90 mm[Hg] Lizzy Pyle MD Work Phone: [facility] 07-05-2021 22:45-0400 Heart rate 97 /min Lizzy Pyle MD Work Phone: [facility] 07-05-2021 22:45-0400 Respiratory rate 16 /min Lizzy Pyle MD Work Phone: [facility] 07-05-2021 22:45-0400 SaO2% (BldA) [Mass fraction] 96 % Lizzy Pyle MD Work Phone: [facility] 07-05-2021 22:45-0400 Systolic blood pressure 126 mm[Hg] Lizzy Pyle MD Work Phone: [facility] Encounters Encounter Date Encounter Type Care Provider Facility Start: 02-05-2024 End: 02-05-2024 ambulatory LILIANNancie STANFORDO Not Available Start: 01-28-2024 End: 01-28-2024 ambulatory MICHELLE BAUTISTA Not Available Start: 01-21-2024 End: 01-21-2024 ambulatory LILIAN KRISTI Not Available Start: 12-31-2023 End: 12-31-2023 ambulatory MICHELLE BAUTISTA Not Available Start: 12-30-2023 End: 12-30-2023 Telephone encounter Lilian Stanfordo DO Work Phone: [facility] Start: 12-29-2023 End: 12-29-2023 Telephone encounter Martell Kay [facility] [place] Start: 12-24-2023 End: 12-24-2023 Chart abstracting Tamir Teixeira MD Work Phone: [facility] Start: 12-24-2023 End: 12-24-2023 Telephone encounter Nataliia Cheng LPN [facility] Start: 12-22-2023 End: 12-22-2023 ambulatory Facility: [facility] Start: 12-15-2023 End: 12-15-2023 Office outpatient visit 15 minutes Lilian Kristi DO Work Phone: [facility] Comment on above: Third trimester preg tyler; 32 weeks gestation of ; SGA (small for gestational age) Start: 12-15-2023 End: 12-15-2023 ambulatory LILIAN KRISTI Not Available Start: 12-01-2023 End: 12-01-2023 Office outpatient visit 15 minutes Michelle MOORE Work Phone: [facility] Comment on above: 30 weeks gestation o f ; Third trimester Start: 12-01-2023 End: 12-01-2023 ambulatory MICHELLE BAUTITSA Not Available Start: 11-17-2023 End: 11-17-2023 ambulatory MICHELLE BAUTISTA Not Available Start: 10-20-2023 End: 10-20-2023 ambulatory Melanie GIRON Facility[place] Start: 10-16-2023 End: 10-16-2023 ambulatory LILIAN KRISTI Not Available Start: 09-18-2023 End: 09-18-2023 ambulatory MICHELLE BAUTISTA Not Available Start: 08-19-2023 End: 08-19-2023 ambulatory LILIAN KRISTI Not Available Start: 07-18-2023 End: 07-18-2023 ambulatory LILIAN KRISTI Not Available Start: 04-02-2023 End: 04-02-2023 ambulatory LILIAN KRISTI Not Available Start: 07-06-2021 End: 07-06-2021 Emergency department patient visit KADIE Domínguez [facility] Start: 07-05-2021 End: 07-05-2021 Emergency department patient [...] Activity Detail Author Start: 12-31-2023 End: 12-31-2023 Telemedicine consultation with patient 12/31/2023 2:15 PM EST Telemedicine [facility] [place] [address] [place] [address] Tamir Teixeira MD [address] [facility], [address] [place] [address] [facility] [place] Start: 12-31-2023 End: 12-31-2023 Patient encounter procedure [facility] Start: 12-15-2023 End: 12-14-2024 US for US OB SCAN FOR GROWTH Imaging Routine Third trimester SGA (small for gestational age) Expected: 12/15/2023 (Approximate), Expires: 12/14/2024 [facility] Work Phone: Comment on above: Expected: 12/15/2023 (Approximate), Expires: 12/14/2024 Start: 12-15-2023 End: 12-15-2023 Patient encounter procedure 12/15/2023 8:30 AM EDT Routine [facility] [address] [place] [address] Lilian Berry, [address] [place] [address] [facility] Start: 10-26-2023 Influenza vaccination Influenza Vacc ine [facility] Start: 2021 Screening for malign ant neoplasm of cervix Pap Smear [facility] Start: 10-25-2021 Influenza vaccination Flu vacc ine (Season Ended) [facility] Start: 11-11-2019 DTaP,Tdap and Td Vaccines (1 - Tdap) DTaP,Tdap and Td Vaccines (1 - Tdap) [facility] Start: 11-11-2019 DTaP/Tdap/Td vaccine (1 - Tdap) DTaP/Tdap/Td vaccine (1 - Tdap) [facility] Start: 2018 Adult BMI Screening Adult BMI Screen ing [facility] Start: 2018 Hepatitis C screening Hepatitis C sc reen [facility] Start: 2016 Screening for Chlamy rupa trachomatis Chlamydia screen [facility] Start: 11-11-2015 HIV screening HIV screen [facility] Start: 2012 Depression Screen Depression Screen [facility] Start: 2012 Depression Screening Depression Scre ening [facility] Start: 2012 Tobacco Screening Tobacco Screening [facility] Start: 11-11-2011 HPV vaccine (1 - 2-d ose series) HPV vaccine (1 - 2-dose series) [facility] Start: 2005 COVID-19 Vaccine (1) COVID-19 Vaccin e (1) [facility] Start: 2001 Varicella vaccine (1 of 2 - 2-dose childhood series) Varicella vaccine (1 of 2 - 2-dose childhood series) [facility] Payers Date Payer Category Payer Unknown [id number] 2023 Medicaid O [employer] [id number] 2022 Unknown [id number] 2020 Private Health Insurance [id number] 2019 [facility] [id number] 2019 Medicaid [id number] 2014 Unknown [id number] 2000 Unknown [id number] [id number]. 1258 2000 Unknown [id number] 2.16.840.1.098150.3.579.2. 1258 2000 Unknown [id number] 2.16.840.1.479385.3.579.2. 1258 2000 Unknown [id number] 2.16.840.1.049804.3.579.2. 1258 2000 Unknown [id number] 2.16.840.1.739102.3.579.2. 1258 2000 Unknown [id number] 2.16.840.1.525700.3.579.2. 1258 2000 Unknown [id number] 2.16.840.1.497398.3.579.2. 1258 2000 Unknown [id number] 2.16.840.1.109043.3.579.2. 1258 2000 Unknown [id number] 2.16.840.1.548641.3.579.2. 1258 2000 Unknown [id number] 2.16.840.1.256099.3.579.2. 1258 2000 Unknown [id number] 2.16.840.1.977126.3.579.2. 1258 2000 Unknown [id number] 2.16.840.1.262218.3.579.2. 1259 1972 Unknown [id number] [id number]. 174 Social History Date Type Detail Facility Start: 01-03-2013 End: 10-16-2023 Tobacco smoking status NHIS Never smoked tobacco [facility] Start: 01-03-2013 End: 10-16-2023 Tobacco use and exposure Smokeless tobacco non-user [facility] Phone: Start: 07-05-2021 Alcohol intake Current non-dr soda tester of alcohol (finding) [facility] Phone: Start: 2000 Sex Assigned At Not on file [facility] Phone: Start: 06-25-2021 End: 07-06-2021 Exposure to SARS-CoV-2 (event) Not sure [facility] Phone: Start: 12-01-2023 Alcoholic beverage intake Lifetime non-drinker (finding) [facility] Start: 10-16-2023 History of Social function [facility] Start: 10-16-2023 Tobacco use panel [facility] Start: 05-16-2023 [facility] Start: 12-23-2023 Sex Female (finding) [facility] Goals Date Patient Goal Desired Activity /State Personal health goal Clinical Notes 07-05-2021 to 12-30-2023 Telephone Encounter - Rochelle Cervantes - 12/30/2023 3:49 PM ESTTelephone Encounter - Rochelle Cervantes - 12/30/2023 3:49 PM ESTTelephone Encounter - Martell Kay - 12/29/2023 12:57 PM ESTInstructions Note Date & Type Note Facility 12-30-2023 Miscellaneous Notes Formattin g of this note might be different from the original. Left voicemail to patient to reschedule appointment that was cancelled for 12/30, left number for patient to call back and reschedule appointment documented in this encounter [facility] 12-30-2023 Telephone encount er Note Left voicemail to patient to reschedule appointment that was cancelled for 12/30, left number for patient to call back and reschedule appointment [facility] 12-29-2023 Miscellaneous Notes Formattin g of this note might be different from the original. Pt called and relayed needed to cancel appt Friday due to work. 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 jk documented in this encounter [facility] 12-29-2023 Telephone encount er Note Pt called and relayed needed to cancel appt Friday due to work. 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 jk [facility] 12-29-2023 Miscellaneous Notes Formattin g of this note might be different from the original. Called pt and left message in regards letting her know that MFM is now on the first floor instead of the second floor jk documented in this encounter [facility] 12-29-2023 Telephone encount er Note Called pt and left message in regards letting her know that MFM is now on the first floor instead of the second floor jk [facility] 12-24-2023 Miscellaneous Notes Formattin g of this note might be different from the original. Please call us back we are holding an bernardo for you. documented in this encounter [facility] 12-24-2023 Telephone encount er Note Please call us back we are holding an bernardo for you. [facility] 12-22-2023 Note Nurse Consultation N ote Reason for Visit employee flu vaccine Medications Cortisporin Otic 1%-0.35%-83677 units/mL Soln-Otic, 4 drop(s), Otic, QID Naprosyn 500 mg Tab, 500 mg= 1 tab(s), Oral, BID ProAir HFA, Inhalation, QID Singulair 5 mg Tab-Chew, 5 mg= 1 tab(s), Chewed, qPM Allergies No Known Allergies [facility] 12-15-2023 History of Presen t illness Narrative [...] nursing note reviewed. Exam conducted with a control room technician present. Vitals: Estimated body mass index is [...] Lilian Berry DO documented in this encounter [facility] 12-01-2023 History of Presen t illness Narrative [...] of: TERESA Tapia documented in this encounter [facility] 07-05-2021 Hospital Discharg e Brigida Spencer RN [...] pollen counts are high. Use a vacuum mainspring barrel assembly cleaner with a HEPA filter or a [...] Where can you learn more? Go to [email or web address] and sign in to your [employer] account. Enter L249 in the Search Health Information box to learn more about Managing Your Allergies: Care Instructions. If you do not have an account, please click on the Sign Up Now link. Current as of: April 05, 2020 Content Version: 13.2 [email or web address]. Care instructions adapted under license by [facility]. If you have questions about a medical condition or this instruction, always ask your healthcare professional. [employer] disclaims any warranty or liability for your [...] weeds. Allergies can be mild or severe. Iyta-sdo-hdilshs allergy medicine may helpwith some symptoms. Read [...] or twice a week. Use a vacuum mainspring barrel assembly cleaner with a HEPA filter or a [...] Where can you learn more? Go to [email or web address] and sign in to your [employer] account. Enter J912 in the Search Health Information box to learn more about Seasonal Allergies: Care Instructions. If you do not have an account, please click on the Sign Up Now link. Current as of: April 05, 2020 Content Version: 13.2 [email or web address]. Care instructions adapted under license by [employer]. If you have questions about a medical condition or this instruction, always ask your healthcare professional. [employer] disclaims any warranty or liability for your use of this information. The following attachments cannot be sent through [employer]merce Everywhere.Allergies (Allergic Rhinitis): Managing (Hong Konger)documented in this encounter [facility] Phone: Evaluation note Diagnosis Shortness of breath- Primary Seasonal allergies Allergic rhinitis, cause unspecified documented in this encounter [facility] Phone: evaluation note* Diagnosis 30 weeks gestation of Third trimester state, incidental [facility] Diagnosis Third trimester state, incidental 32 weeks gestation of SGA (small for gestational age) Nhtbd-lew-sqxnk without mention of malnutrition, unspecified (weight) documented in this encounter [facility] HealthcareInstructionsNot on filedocumented in this encounterProMedica Health SystemInstructionsNot on filedocumented in this encounterProSouthwest [facility] Advance Directives No Advanced Directives Records FoundDocuments on File Type Date Recorded 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 ACP-Advance Directive ACP-Power of Product Lead Summary Purpose Family History No Family History [...] Care Teams (unrecognized sec tion and content) Acrobatic Rigger Relationship Specialty Start Date End Date Kadie Bird MD [address] [place] [address] PCP - General 03/14/16 INFORMATION SOURCE (unrecogn ized section and content) DATE CREATED AUTHOR 07/07/2021 [facility] DATE CREATED AUTHOR AUTHOR'S ORGANIZ ATION 10/22/2023 [facility] [facility] DATE CREATED AUTHOR AUTHOR'S ORGANIZ ATION 10/24/2023 [employer] [facility] DATE CREATED AUTHOR AUTHOR'S ORGANIZ ATION 12/23/2023 [employer] [facility] DATE CREATED AUTHOR AUTHOR'S ORGANIZ ATION 02/08/2024 [facility] dical Specialists EPIC FOR RECORDS PERTAINING TO PATIENTS WHO ARE [...] BE BASED ON THE PRIMARY CLINICAL RECORDS. [facility] [employer] [facility]. provides no warranty or guarantee of the accuracy or completeness of information in this document.
--- NOTE | 2024-02-12 11:39 | PC.NURSE ---
Chi and 6 day old Raoul arrive for support. Both parents report that feeding is going better and milk definitely in Report baby has 8+ wets and 4 yellow stools daily. Weight is up 175 gms from 02/10/2024 Parents are actively waking infant to feed every 2 hours during the day, sleeps 3-4 hour stretches at night and doing well. Mom continues to struggle to latch on left breast, just feels awkward for me Shown tips to make latching easier and mom able to latch independently. Will return 02/23/2024 for support. Home at this time.
== END 2024-02-12 11:48 | disposition home or self-care (01) ==
LOC: FBCO 08:14
PROVIDERS: Visit Provider Obstetrics & Gynecology
DX: Z39.1 Encounter for care and examination of lactating mother (principal)
CPT/HCPCS: G0463

== ENCOUNTER 2024-02-27 08:24 | Outpatient (OUT) | payer OTHER, SELFPAY ==
--- OUTSIDE RECORDS SUMMARY | 2024-02-27 08:32 | XMS_ITS | CCD ---
Author Organization [facility] Care Team Providers Care Kitchen Operator Name Role Phone Kadie Bird MD [...] low weight; and growth retardation (2 sources) Nxkea-sqc-cbatn baby; Translations: [Elbert small for gestational age, unspecified weight] 12-15-2023 Episodic Unclassified (4 sources) OB Reminders Onset: 09-18-2023 09-18-2023 Results Test Name Value Interpretation Reference Range Facility Urinalysis macro (dipstick) panel (U)on 12-15-2023 Bilirubin, UA Negative Negative - 4(70) +++ mg/dL [facility] Blood, UA Positive Negative - 50 Main/mcL [facility] Comment on above: trace Clarity, UA Clear [facility] Color, UA Yellow [facility] Glucose, UA Negative Negative - 1999(110) ++++ mg/dL [facility] Interpretation and review of laboratory results Abnormal [facility] Ketones, UA Negative Negative - 160(16) ++++ mg/dL [facility] Leukocytes, UA Negative Negative - 500+++ Fausto/mcL [facility] Nitrite, UA Negative Negative - Positive [facility] pH, UA 7 5 - 9 [facility] Protein, UA Negative Negative - 1999(20) ++++ mg/dL [facility] Spec Grav, UA 1.015 1 - 1.03 [facility] Urobilinogen, UA 1.0 0.2 - 12 mg/dL [facility] Urinalysis macro (dipstick) panel (U)on 12-01-2023 Bilirubin, UA Negative Negative - 4(70) +++ mg/dL [facility] Blood, UA Negative Negative - 50 Main/mcL [facility] Clarity, UA Clear [facility] Color, UA Yellow [facility] Glucose, UA Negative Negative - 1999(110) ++++ mg/dL [facility] Interpretation and review of laboratory results Abnormal [facility] Ketones, UA Negative Negative - 160(16) ++++ mg/dL [facility] Leukocytes, UA Negative Negative - 500+++ Fausto/mcL [facility] Nitrite, UA Negative Negative - Positive [facility] pH, UA 7.0 5 - 9 [facility] Protein, UA Negative Negative - 1999(20) ++++ mg/dL [facility] Spec Grav, UA 1.025 1 - 1.03 [facility] Urobilinogen, UA 0.2 0.2 - 12 mg/dL [facility] Quantiferon-TB Plus (Client Incubated)on 10-22-2023 Gamma interferon background IA Qn (Bld) 0.00 International_Unit/ mL Invalid Interpretation Code [facility] Comment on above: Performed By: #### 1 [id number] #### [facility] [address] [place] [address] M. tuberculosis stim IFN-g by CD4+ CD8+ T-cells corrected for background Qn (Bld) 0.00 International_Unit/ mL Invalid Interpretation Code [facility] Comment on above: Performed By: #### 1 [id number] #### [facility] [address] [place] [address] M. tuberculosis stim IFN-g by CD4+ T-cells corrected for background Qn (Bld) 0.00 International_Unit/ mL Invalid Interpretation Code [facility] Comment on above: Performed By: #### 1 [id number] #### [facility] [address] [id number] M. tuberculosis stim IFN-g Ql (Bld) [Interp] Negative Invalid Interpretation Code Negative [facility] Comment on above: Result Comment: No [...] interferon gamma. Chemiluminescence immunoassay methodology Performed at: [facility] [id number] PhD Ashtyn Baig Performed By: #### 1 [id number] #### [facility] [address] [place] [address] Mitogen stimulated gamma interferon corrected for background Qn (Bld) >10.00 Invalid Interpretation Code [facility] Comment on above: Performed By: #### 1 [id number] #### [facility] [address] [place] [address] Service comment (Unsp spec) [Interp] Comment Invalid Interpretation Code [facility] Comment on above: Result Comment: Raza [...] for the test. Performed By: #### 1 [id number] #### [facility] [address] [place] [address] Hep Bs Abon 10-21-2023 HBV surface Ab Ql (S) Non-Reactive Invalid Interpretation Code [facility] Comment on above: Result Comment: Non Reactive: Not immune to HBV infection. Equivocal: Unable to determine if anti-HBs is present at levels consistent with immunity. Reactive: Anti-HBs concentration detected at greater than 10 mIU/mL. Individual is considered to be immune to infection with HBV. Performed at: [address] [id number] PhD Ashtyn Baig Performed By: #### 2 [id number] #### [facility] [address] [place] [address] Measles/Mumps/Rubella Immuni tyon 10-21-2023 MeV IgG IA Qn (S) 23.8 A unit/mL Invalid Interpretation Code Immune >16.4 [facility] Comment on above: Result Comment: Nega tive <13.5 Equivocal 13.5 - 16.4 Positive >16.4 Presence of antibodies to Rubeola is presumptive evidence of immunity except when acute infection is suspected. Performed By: #### 3 [id number] #### [facility] [address] [place] [address] MuV IgG IA Qn (S) 86.3 A unit/mL Invalid Interpretation Code Immune >10.9 [facility] Comment on above: Result Comment: Nega tive <9.0 Equivocal 9.0 - 10.9 Positive >10.9 A positive result generally indicates past exposure to Mumps virus or previous vaccination. Performed at: [address] [id number] PhD Ashtyn Baig Performed By: #### 3 [id number] #### [facility] [address] [place] [address] Rubella virus IgG Qn (S) 1.45 [IU]/mL Invalid Interpretation Code Immune >0.99 [facility] Comment on above: Result Comment: Non- immune <0.90 Equivocal 0.90 - 0.99 Immune >0.99 Performed By: #### 3 [id number] #### [facility] [address] [place] [address] Varic IgGon 10-21-2023 VZV IgG IA Qn (S) 228 Invalid Interpretation Code Immune >165 [facility] Comment on above: Result Comment: Nega tive <135 Equivocal 135 - 165 Positive >165 A positive result generally indicates exposure to the pathogen or administration of specific immunoglobulins, but it is not indication of active infection or stage of disease. Performed at: [facility] [id number] PhD Ashtyn Baig Performed By: #### 1 [id number] #### [facility] [address] [place] [address] AFP Single Marker Scrn, Mate rnal, Serumon 09-18-2023 Ms Alpha-Fetoprotein Negative [facility] CBC without diffon Hematocrit (Bld) [Volume fraction] 38.7 % [facility] Hemoglobin (Bld) [Mass/Vol] 13 g/dL [facility] Platelets (Bld) [#/Vol] 155 10*3/uL [facility] Rbc Mcv (Fl) By Automated Count 91.1 [facility] HIV 1&2 AB/AG Screen (P24 AG )on 09-18-2023 HIV 1&2 AB/AG Non-Reactive [facility] Hepatitis B surface antigeno n 09-18-2023 Hepatitis B Surface Antigen Negative [facility] Hepatitis C(HCV) Ab w/ Refle x to PCRon 09-18-2023 HCV Ab Ql (S) Non-Reactive [facility] No Panel Informationon 09-17 [facility] Rubella IGG immune statuson 09-18-2023 Rubella immune IgG 1.34 [facility] Syphilis Total(Unknown Syphi lis Status)on 09-18-2023 Syphilis Non-Reactive [facility] Type and screenon 09-18-2023 Abo/Rh(D) Positive [facility] Vital Signs Date Time Vital Sign Value Performing Clinician Faci lity 12-15-2023 08:41-0400 Body mass index (BMI) [Ratio] 32.32 kg/m2 Lilian Kristi DO Work Phone: [facility] 12-15-2023 08:41-0400 Body weight 72.58 kg Lilian Kristi DO Work Phone: [facility] 12-15-2023 08:41-0400 Diastolic blood pressure 64 mm[Hg] Lilian Kristi DO Work Phone: [facility] 12-15-2023 08:41-0400 Systolic blood pressure 110 mm[Hg] Lilian Kristi DO Work Phone: [facility] 12-01-2023 08:57-0400 Body mass index (BMI) [Ratio] 32.4 kg/m2 Michelle MOORE Work Phone: [facility] 12-01-2023 08:57-0400 Body weight 72.76 kg Michelle MOORE Work Phone: [facility] 12-01-2023 08:57-0400 Diastolic blood pressure 60 mm[Hg] Michelle MOORE Work Phone: [facility] 12-01-2023 08:57-0400 Systolic blood pressure 110 mm[Hg] Michelle MOORE Work Phone: [facility] 07-05-2021 22:45-0400 Body temperature 98.6 [degF] Lizzy Pyle MD Work Phone: [facility] 07-05-2021 22:45-0400 Body weight 56.56 kg Lizzy Pyle MD Work Phone: [facility] 07-05-2021 22:45-0400 Diastolic blood pressure 90 mm[Hg] Lizzy Pyle MD Work Phone: [facility] 07-05-2021 22:45-0400 Heart rate 97 /min Lizzy Pyle MD Work Phone: [facility] 07-05-2021 22:45-0400 Respiratory rate 16 /min Lizzy Pyle MD Work Phone: [facility] 07-05-2021 22:45-0400 SaO2% (BldA) [Mass fraction] 96 % Lizzy Pyle MD Work Phone: [facility] 07-05-2021 22:45-0400 Systolic blood pressure 126 mm[Hg] Lizzy Pyle MD Work Phone: [facility] Encounters Encounter Date Encounter Type Care Provider Facility Start: 02-05-2024 End: 02-05-2024 ambulatory LILIANNancie STANFORDO Not Available Start: 01-28-2024 End: 01-28-2024 ambulatory MICHELLE BAUTISTA Not Available Start: 01-21-2024 End: 01-21-2024 ambulatory LILIAN KRISTI Not Available Start: 12-31-2023 End: 12-31-2023 ambulatory MICHELLE BAUTISTA Not Available Start: 12-30-2023 End: 12-30-2023 Telephone encounter Lilian Stanfordo DO Work Phone: [facility] Start: 12-29-2023 End: 12-29-2023 Telephone encounter Martell Kay [facility] [place] Start: 12-24-2023 End: 12-24-2023 Chart abstracting Tamir Teixeira MD Work Phone: [facility] Start: 12-24-2023 End: 12-24-2023 Telephone encounter Nataliia Cheng LPN [facility] Start: 12-22-2023 End: 12-22-2023 ambulatory Facility: [facility] Start: 12-15-2023 End: 12-15-2023 Office outpatient visit 15 minutes Lilian Kristi DO Work Phone: [facility] Comment on above: Third trimester [...] Start: 10-20-2023 End: 10-20-2023 ambulatory Melanie GIRON Facility:[facility] Start: 10-16-2023 End: 10-16-2023 ambulatory LILIAN KRISTI Not Available Start: 09-18-2023 End: 09-18-2023 ambulatory MICHELLE BAUTISTA Not Available Start: 08-19-2023 End: 08-19-2023 ambulatory LILIAN KRISTI Not Available Start: 07-18-2023 End: 07-18-2023 ambulatory LILIAN KRISTI Not Available Start: 04-02-2023 End: 04-02-2023 ambulatory LILIAN KRISTI Not Available Start: 07-06-2021 End: 07-06-2021 Emergency department patient visit KADIE [facility] Start: 07-05-2021 End: 07-05-2021 Emergency department patient visit Lizzy Pyle MD Work Phone: [facility] ED Comment on above: Shortness of [...] 12/31/2023 2:15 PM EST Telemedicine [facility] [place] [address] [place] [address] Tamir Teixeira MD [address] [facility], [address] [place] [address] [facility] [place] Start: 12-31-2023 End: 12-31-2023 Patient encounter procedure [...] EDT Routine [facility] [address] [place] [address] Lilian Berry, [address] [address] [facility] Start: 10-26-2023 Influenza vaccination Influenza Vacc ine [facility] Start: 2021 Screening for malign ant neoplasm of cervix Pap Smear [facility] Start: 10-25-2021 Influenza vaccination Flu vacc ine (Season Ended) [facility] Start: 11-11-2019 DTaP,Tdap and Td Vaccines (1 - Tdap) DTaP,Tdap and Td Vaccines (1 - Tdap) [facility] Start: 11-11-2019 DTaP/Tdap/Td vaccine (1 - Tdap) DTaP/Tdap/Td vaccine (1 - Tdap) [facility] Start: 2018 Adult BMI Screening Adult BMI Screen ing [facility] Start: 2018 Hepatitis C screening Hepatitis C sc reen [facility] Start: 2016 Screening for Chlamy rupa trachomatis Chlamydia screen [facility] Start: 11-11-2015 HIV screening HIV screen [facility] Start: 2012 Depression Screen Depression Screen [facility] Start: 2012 Depression Screening Depression Scre ening [facility] Start: 2012 Tobacco Screening Tobacco Screening [facility] Start: 11-11-2011 HPV vaccine (1 - 2-d ose series) HPV vaccine (1 - 2-dose series) [facility] Start: 2005 COVID-19 Vaccine (1) COVID-19 Vaccin e (1) [facility] Start: 2001 Varicella vaccine (1 of 2 - 2-dose childhood series) Varicella vaccine (1 of 2 - 2-dose childhood series) [facility] Payers Date Payer Category Payer Unknown [id number] 2023 Medicaid O [employer] [id number] 2022 Unknown [id number] 2020 Private Health Insurance [id number] 2019 [facility] [id number] 2019 Medicaid [id number] 2014 Unknown [id number] 2000 Unknown [id number] [id number]. 1258 2000 Unknown [id number] 2.16.840.1.865896.3.579.2. 1258 2000 Unknown [id number] 2.16.840.1.443349.3.579.2. 1258 2000 Unknown [id number] 2.16.840.1.990195.3.579.2. 1258 2000 Unknown [id number] 2.16.840.1.537317.3.579.2. 1258 2000 Unknown [id number] 2.16.840.1.928981.3.579.2. 1258 2000 Unknown [id number] 2.16.840.1.376958.3.579.2. 1258 2000 Unknown [id number] 2.16.840.1.976702.3.579.2. 1258 2000 Unknown [id number] 2.16.840.1.754314.3.579.2. 1258 2000 Unknown [id number] 2.16.840.1.964281.3.579.2. 1258 2000 Unknown [id number] 2.16.840.1.016294.3.579.2. 1258 2000 Unknown [id number] 2.16.840.1.126728.3.579.2. 1259 1972 Unknown [id number] [id number]. 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 (finding) [facility] Phone: Start: 2000 Sex Assigned At Not on file [facility] Phone: Start: 06-25-2021 End: 07-06-2021 Exposure to SARS-CoV-2 (event) Not sure [facility] Phone: Start: 12-01-2023 Alcoholic beverage intake Lifetime non-drinker (finding) [facility] Start: 10-16-2023 History of Social function [facility] Start: 10-16-2023 Tobacco use panel [facility] Start: 05-16-2023 [facility] Start: 12-23-2023 Sex Female (finding) [facility] Goals Date Patient Goal Desired [...] reschedule appointment documented in this encounter [facility] 12-30-2023 Telephone encount er Note Left voicemail to patient to reschedule appointment that was cancelled for 12/30, left number for patient to call back and reschedule appointment [facility] 12-29-2023 Miscellaneous Notes Formattin g of this note might be different from the original. Pt called and relayed needed to cancel appt Friday due to work. Told pt we should look into rescheduling,but with being booked out I would have to get her information to our sinography sorting and folding supervisor and would contact her. jk documented in this encounter [facility] 12-29-2023 Telephone encount er Note Pt called and relayed needed to cancel appt Friday due to work. Told pt we should look into rescheduling,but with being booked out I would have to get her information to our sinography sorting and folding supervisor and would contact her. jk [facility] 12-29-2023 Miscellaneous Notes Formattin g of this note might be different from the original. Called pt and left message in regards letting her know that MFM is now on the first floor instead of the second floor jk documented in this encounter [facility] 12-29-2023 Telephone encount er Note Called pt and left message in regards letting her know that MFM is now on the first floor instead of the second floor jk [facility] 12-24-2023 Miscellaneous Notes Formattin g of this note might be different from the original. Please call us back we are holding an bernardo for you. documented in this encounter [facility] 12-24-2023 Telephone encount er Note Please call us back we are holding an bernardo for you. [facility] 12-22-2023 Note Nurse Consultation N ote Reason for Visit employee flu vaccine Medications Cortisporin Otic 1%-0.35%-99535 units/mL Soln-Otic, 4 drop(s), Otic, QID Naprosyn 500 mg Tab, 500 mg= 1 tab(s), Oral, BID ProAir HFA, Inhalation, QID Singulair 5 mg Tab-Chew, 5 mg= 1 tab(s), Chewed, qPM Allergies No Known Allergies [facility] 12-15-2023 History of Presen t illness [...] nursing note reviewed. Exam conducted with a petroleum geology faculty member present. Vitals: Estimated body mass index is [...] Lilian Berry DO documented in this encounter [facility] 12-01-2023 History of Presen t illness [...] of: TERESA Tapia documented in this encounter [facility] 07-05-2021 Hospital Discharg e Brigida Spencer RN [...] pollen counts are high. Use a vacuum vacuum cleaner repairer with a HEPA filter or a double-thickness [...] Where can you learn more? Go to [email or web address] and sign in to your [employer] account. Enter L249 in the Search Health Information box to learn more about Managing Your Allergies: Care Instructions. If you do not have an account, please click on the Sign Up Now link. Current as of: April 05, 2020 Content Version: 13.2 [employer]. Care instructions adapted under license by [email or web address]. If you have questions about a medical condition or this instruction, always ask your healthcare professional. [employer] disclaims any warranty or liability for your [...] weeds. Allergies can be mild or severe. Gvlf-mcv-nkkcvbc allergy medicine may helpwith some symptoms. Read [...] or twice a week. Use a vacuum vacuum cleaner repairer with a HEPA filter or a double-thickness [...] Where can you learn more? Go to [email or web address] and sign in to your [employer] account. Enter J912 in the Search Health Information box to learn more about Seasonal Allergies: Care Instructions. If you do not have an account, please click on the Sign Up Now link. Current as of: April 05, 2020 Content Version: 13.2 [employer]. Care instructions adapted under license by [email or web address]. If you have questions about a medical condition or this instruction, always ask your healthcare professional. [employer] disclaims any warranty or liability for your use of this information. The following attachments cannot be sent through [employer] Everywhere.Allergies (Allergic Rhinitis): Managing (Hungarian)documented in this encounter [facility] Phone: Evaluation note Diagnosis Shortness of breath- Primary Seasonal allergies Allergic rhinitis, cause unspecified documented in this encounter [facility] Phone: evaluation note* Diagnosis 30 weeks gestation of Third trimester state, incidental [facility] Diagnosis Third trimester state, incidental 32 weeks gestation of SGA (small for gestational age) Husvk-pmy-sluur without mention of malnutrition, unspecified (weight) documented in this encounter [facility] HealthcareInstructionsNot on filedocumented in this encounterProMedica Health SystemInstructionsNot on filedocumented in this [facility]ProKind[facility] Advance Directives No Advanced Directives Records FoundDocuments on File Type Date Recorded 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 ACP-Advance Directive ACP-Power of Health Outreach Worker Summary Purpose Family History No Family [...] Care Teams (unrecognized sec tion and content) Kitchen Operator Relationship Specialty Start Date End Date Kadie Bird MD [address] [place] [address] PCP - General 03/14/16 INFORMATION SOURCE (unrecogn ized section and content) DATE CREATED AUTHOR 07/07/2021 [facility] DATE CREATED AUTHOR AUTHOR'S ORGANIZ ATION 10/22/2023 [facility] DATE CREATED AUTHOR AUTHOR'S ORGANIZ ATION 10/24/2023 [facility] [facility] DATE CREATED AUTHOR AUTHOR'S ORGANIZ ATION 12/23/2023 [employer] [facility] DATE CREATED AUTHOR AUTHOR'S ORGANIZ ATION 02/08/2024 [facility] EPIC FOR RECORDS PERTAINING TO [...] THE PRIMARY CLINICAL RECORDS. [facility] [employer]. provides no warranty or guarantee of the accuracy or completeness of information in this document.
== END 2024-02-27 11:29 | disposition home or self-care (01) ==
LOC: FBCO 08:25
PROVIDERS: Visit Provider Obstetrics & Gynecology
DX: Z39.1 Encounter for care and examination of lactating mother (principal)

== ENCOUNTER 2024-09-20 12:29 | Outpatient (REF) | payer OTHER, SELFPAY ==
--- OUTSIDE RECORDS SUMMARY | 2024-09-20 09:00 | XMS_ITS | Encounter Summary ---
Author Organization [facility] Address [address] [place] [address] Care Team Providers Care Regional Account Executive Name Role Phone Unavailable Primary Care Provider Unavailabl e Reason for Visit * Reason Comments Well Women Visit Encounter Details Date Type Department Care Team (Late st Contact Info) Description 09/20/2024 9:00 AM EDT Office Visit [facility] [address] [place] [id number] Michelle Bui PA [address] [place], [facility]11 Well woman exam with routine gynecological exam Social History Tobacco Use Types Packs/Day Years Used Date Smoking Tobacco: Never Smokeless Tobacco: Never Alcohol Use Standard Drinks/Week Comments Never 0 (1 standard drink = 0.6 oz pur e alcohol) Comments Unknown Sex and Gender Information Value Date Recorded Sex Assigned at Not on file Legal Sex Female 2:50 PM EST Gender Identity Not on file Sexual Orientation Not on file documented as of this encounter Last Filed Vital Signs Vital Sign Reading Time Taken Comments Blood Pressure 114/74 09/20/2024 9:10 AM EDT Pulse - - Temperature - - Respiratory Rate - - Oxygen Saturation - - Inhaled Oxygen Concentration - - Weight 54.9 kg (121 lb) 09/20/2024 9:10 AM EDT Height - - Body Mass Index 24.44 04/02/2023 10:25 AM EST documented in this encounter Progress Notes * TERESA Tapia - 09/20/2024 9:00 AM EDT Reason for Appointment: Patient ID: Chi Garcia is a 23 y.o. female who presents for Well Women Visit Patient presents today for Annual Exam. MEDICATIONS Current Outpatient Medications Medication Instructions norethindrone (MICRONOR) 0.35 mg, Oral, Daily, Take 1 tablet by mouth daily ALLERGIES No Known Allergies PROBLEMS Active Ambulatory Problems Diagnosis Date Noted 23 weeks gestation of ([facility]) 10/16/2023 History of miscarriage 10/16/2023 Low-lying placenta ([facility]) 10/16/2023 Second trimester ([facility]) 10/16/2023 Diabetes mellitus screening 10/16/2023 Resolved Ambulatory [...] Objective: Physical Exam Constitutional: Appearance: Normal appearance. Genitourinary: Right Adnexa: not tender and no mass present. Left Adnexa: not tender and no mass present. No cervical discharge. Breasts: Breasts are soft. Right: Normal. Left: Normal. HENT: Head: Normocephalic. Nose: Nose normal. Mouth/Throat: Mouth: Mucous membranes are moist. Cardiovascular: Rate and Rhythm: Normal rate. Pulmonary: Effort: Pulmonary effort is normal. Abdominal: General: Bowel sounds are normal. Palpations: Abdomen is soft. Musculoskeletal: General: Normal range of motion. Cervical back: Normal range of motion. Neurological: General: No focal deficit present. Mental Status: She is alert. Skin: General: Skin is warm and dry. Psychiatric: Mood and Affect: Mood normal. Vitals and nursing note reviewed. Exam conducted with a government guard present. Vitals: Estimated body mass index is 24.44 kg/m?? as calculated from the following: Height as of 04/02/23: 4' 11 . Weight as of this encounter: 121 lb. BP: 114/74 No LMP recorded. ASSESSMENT & PLAN ICD-10-CM 1. Well woman exam with routine gynecological exam Z01.419 Pap Smear norethindrone (Micronor) 0.35 MG tablet Annual Exam: Patient presents today for an annual exam. Patient states she is doing well and has no complaints. Pap was obtained without difficulty. No orders of the defined types were placed in this encounter. Follow Up: Patient is to return in one year for annual unless needed otherwise. Documented by TERESA Tapia on behalf of: TERESA Tapia documented in this encounter Miscellaneous Notes * Addendum Note - Bernarda Strong LPN - 09/20/2024 9:00 AM EDTAddended by: BERNARDA STRONG on: 09/20/2024 09:50 AM Modules accepted: Orders documented in this encounter Plan of Treatment Scheduled Orders Name Type Priority Associated Diagnoses Orde r Schedule Pap Smear Pathology and Cytology Routine Well woman exam with routine gynecological exam Ordered: 09/20/2024 documented as of this encounter Goals Goal Patient Goal Type Associated Problems Recent Progress Patient-Stated? Author Reminders Care Plan OB Reminders No Open Scheduling, Background documented as of this encounter Visit Diagnoses Diagnosis Well woman exam with routine gynecological exam Routine gynecological examination documented in this encounter Additional Health Concerns Active Problems Noted Date Diagnosed Date OB Reminders 09/18/2023 documented as of this encounter
--- OUTSIDE RECORDS SUMMARY | 2024-09-20 12:34 | XMS_ITS | Encounter Summary ---
Author Organization [facility] Address [address] [place] [address] Care Team Providers Care Veneer Clipper Name Role Phone Michelle Bui Unavailable Encounter Details Date Type Department Care Team (Late st Contact Info) Description 03/26/2023 Abstract HAN TAPIA [address] [place] [address] Sidney Berry DO [address], [place] [address] Social History Tobacco Use Types Packs/Day Years Used Date Smoking Tobacco: Never Assessed Comments Unknown Sex and Gender Information Value Date Recorded Sex Assigned at Not on file Legal Sex Female 2:50 PM EST Gender Identity Not on file Sexual Orientation Not on file documented as of this encounter Plan of Treatment Not on file documented as of this encounter Visit Diagnoses Not on filedocumented in this encounter Care Teams Veneer Clipper Relationship Specialty Start Date End Date Michelle Bui PA [address] [place], [facility]11 PCP - Medical [place] [employer] 12/26/23 07/08/24 documented as of this encounter
--- OUTSIDE RECORDS SUMMARY | 2024-09-20 12:34 | XMS_ITS | Encounter Summary ---
Author Organization [facility] Address [address] [place] [address] Care Team Providers Care Cruise Director Name Role Phone Michelle Bui Unavailable Encounter Details Date Type Department Care Team (Late st Contact Info) Description 12/15/2023 Abstract HAN TAPIA [address] [place] [address] Sidney Berry DO [address], [place] [address] Social History Tobacco Use Types Packs/Day Years Used Date Smoking Tobacco: Never Smokeless Tobacco: Never Alcohol Use Standard Drinks/Week Comments Never 0 (1 standard drink = 0.6 oz pur e alcohol) Comments Yes Sex and Gender Information Value Date Recorded Sex Assigned at Not on file Legal Sex Female 2:50 PM EST Gender Identity Not on file Sexual Orientation Not on file documented as of this encounter Plan of Treatment Not on file documented as of this encounter Goals Goal Patient Goal Type Associated Problems Recent Progress Patient-Stated? Author Reminders Care Plan OB Reminders No Open Scheduling, Background documented as of this encounter Visit Diagnoses Not on filedocumented in this encounter Additional Health Concerns Active Problems Noted Date Diagnosed Date OB Reminders 09/18/2023 documented as of this encounter Care Teams Cruise Director Relationship Specialty Start Date End Date Michelle Bui PA [address] [place], [facility]11 PCP - Medical [place] [employer] 12/26/23 07/08/24 documented as of this encounter
--- OUTSIDE RECORDS SUMMARY | 2024-09-20 12:34 | XMS_ITS | Encounter Summary ---
Author Organization [facility] Address [address] [place] [address] Care Team Providers Care Baccarat Dealer Name Role Phone Michelle Bui Unavailable Encounter Details Date Type Department Care Team (Late st Contact Info) Description 04/15/2023 Abstract HAN TAPIA [address] [place] [address] Sidney Berry DO [address], [place] [address] Social History Tobacco Use Types Packs/Day Years [...] on filedocumented in this encounter Care Teams Baccarat Dealer Relationship Specialty Start Date End Date Michelle Bui PA [address] [place], [facility]11 PCP - Medical [place] [employer] 12/26/23 07/08/24 documented as of this encounter
--- OUTSIDE RECORDS SUMMARY | 2024-09-20 12:34 | XMS_ITS | Encounter Summary ---
Author Organization [facility] Address [address] [place] [address] Care Team Providers Care Heel Room Supervisor Name Role Phone [place] Unavailable Encounter Details Date Type Department Care Team (Late st Contact Info) Description 03/09/2024 Orders Only [facility] [address] [place] [address] Sagrario Maldonado LPN [address] [place] [id number] Social History Tobacco Use Types Packs/Day Years [...] Scheduling, Background documented as of this encounter Procedures Procedure Name Priority Date/Time Associated Diagnosis Comments PAP SMEAR Routine 08/19/2023 12:00 AM EDT documented in this encounter Results * Pap Smear (08/19/2023 12:00 AM EDT) Swab Cervical swab / Unknown Kristi Nurse [facility] LAB CYTOLOGY ORDERABLES Final Result EXTERNAL LAB documented in this encounter Visit Diagnoses Not on filedocumented in this encounter Additional Health Concerns Active Problems Noted Date Diagnosed Date OB Reminders 09/18/2023 documented as of this encounter Care Teams Heel Room Supervisor Relationship Specialty Start Date End Date Michelle Bui PA [address] [place], [facility]11 PCP - Medical [place] [employer] 12/26/23 07/08/24 documented as of this encounter
--- OUTSIDE RECORDS SUMMARY | 2024-09-20 12:34 | XMS_ITS | Encounter Summary ---
Author Organization [facility] Address [address] [place] [address] [place] [address] Care Team Providers Care Frame Bender Name Role Phone Unavailable Primary Care Provider Unavailabl e Encounter Details Date Type Department Care Team (Late st Contact Info) Description 09/20/2024 Bamboo flowsheet [facility] [address] [place] [address] Michelle Bui PA [address] [place], [facility]11 Social History Tobacco Use Types Packs/Day Years [...]
--- OUTSIDE RECORDS SUMMARY | 2024-09-20 12:34 | XMS_ITS | Encounter Summary ---
Author Organization [facility] Address [address] [place] [address] Care Team Providers Care Electrical Tryout Person Name Role Phone Unavailable Primary Care Provider Unavailabl e Encounter Details Date Type Department Care Team (Latest Contact Info) Description 09/16/2024 Travel Social History Tobacco Use Types Packs/Day Years Used Date Smoking Tobacco: Never Smokeless Tobacco: Never Alcohol Use Standard Drinks/Week Comments Never 0 (1 standard drink = 0.6 oz pur e alcohol) Comments No Sex and Gender Information Value Date Recorded [...]
--- OUTSIDE RECORDS SUMMARY | 2024-09-20 12:34 | XMS_ITS | Encounter Summary ---
Author Organization [facility] Address [address] [place] [address] Care Team Providers Care Cigar Bander Hand Name Role Phone Michelle Bui Unavailable Encounter Details Date Type Department Care Team (Late st Contact Info) Description 01/21/2024 Abstract HAN TAPIA [address] [facility] [facility] [place] [address] Sidney Berry DO [address] [place] [place], [place] [address] Social History Tobacco Use Types Packs/Day Years [...] documented as of this encounter Care Teams Cigar Bander Hand Relationship Specialty Start Date End Date Michelle Bui PA [address] [place], [facility]11 PCP - Medical [place] [employer] 12/26/23 07/08/24 documented as of this encounter
--- OUTSIDE RECORDS SUMMARY | 2024-09-20 12:34 | XMS_ITS | Encounter Summary ---
Author Organization [facility] Address [address] [place] [address] Care Team Providers Care Fnp Name Role Phone Michelle Bui Unavailable Encounter Details Date Type Department Care Team (Late st Contact Info) Description 10/16/2023 Clinisync Result Encounter [facility] External Department Unsolicited Lilian Berry, DO [address] [place] [id number] Social History Tobacco Use Types Packs/Day Years [...] Procedure Name Priority Date/Time Associated Diagnosis Comments US OB PLACENTA 10/16/2023 9:23 AM EDT documented in this encounter Results * US OB PLACENTA (10/16/2023 9:23 AM EDT) Anatomical Region Laterality Modality Other 10/16/2023 9:23 AM EDT Narrative 10/16/2023 9:26 [place] [address] Ultrasound Report Signed Patient: BEN GARCIA MR#: [id number] : 2000 Acct:[id number] Age/Sex: 22 / F ADM Date: 10/16/23 Loc: [facility] Attending Dr: Lilian Berry D.O. Ordering Physician: Lilian Berry D.O. Date of Service: 10/16/23 Procedure(s): US OB placenta Accession Number(s): [id number] cc: Lilian Berry D.O.; Physician,Non-Staff [place] [address] Patient Name: BEN GARCIA MRN: [id number] date: 2000 Sex: F Assigned Patient Location: [facility] Current Patient Location: [facility] Accession/Order Number: [id number] Exam Date: 10/16/2023 08:04 Report Date: 10/16/2023 09:23 At the request of: LILIAN BERRY Procedure: US OB placenta EXAMINATION: US OB placenta, US OB cervical length HISTORY: LOW LYING PLACENTA COMPARISON: Ultrasound OB Anatomy 09/24/2023 FINDINGS: PLACENTA: Posterior with lower margin 5.0 cm from os. No abruption or subchorionic hematoma. CERVIX LENGTH: 3.8 cm; closed. HEART RATE: Not recorded. OTHER: None. US/US OB placenta IMPRESSION: 1. Posterior placenta which is no longer low-lying. Electronically authenticated by: RAFAEL NEAL Date: 10/16/2023 09:23 Dictated By: Rafael Neal M.D. Signed By: 10/16/23925 DD/ 2 TD/TT: Nursing Staff Development Coordinator: Procedure Note Radiology, Radiologist, MD - 10/16/2023 [place] [address] Ultrasound Report Signed Patient: BEN GARCIA AMR#: [id number] : 2000Acct:[id number] Age/Sex: M Date: 10/16/23 Loc: [facility] Attending Dr: Lilian Berry D.O. Ordering Physician: Lilian Berry D.O. Date of Service: 10/16/23 Procedure(s): US OB placenta Accession Number(s): [id number] cc: Lilian Berry D.O.; Physician,Non-Staff M.DJens [address] [address] Patient Name: BEN GARCIA MRN: [id number] date: 2000 Sex: F Assigned Patient [facility] Current Patient Location: [facility] Accession/Order Number: [id number] Exam Date: 10/16/2023 08:04 Report Date: 10/16/2023 09:23 At the request of: LILIAN BERRY Procedure: US OB placenta EXAMINATION: US OB placenta, US OB cervical length HISTORY: LOW LYING PLACENTA COMPARISON: Ultrasound OB Anatomy 09/24/2023 FINDINGS: PLACENTA: Posterior with lower margin 5.0 cm from os. No abruption or subchorionic hematoma. CERVIX LENGTH: 3.8 cm; closed. HEART RATE: Not recorded. OTHER: None. US/US OB placenta IMPRESSION: 1. Posterior placenta which is no longer low-lying. Electronically authenticated by: RAFAEL NEAL Date: 10/16/2023 09:23 Dictated By: Rafael Neal M.D. Signed By:10/16/23925 DD/ 2 TD/TT: Nursing Staff Development Coordinator: us Lilian Berry DO [facility] Final Result documented in this encounter Visit Diagnoses Not on filedocumented in this encounter Additional Health Concerns Active Problems Noted Date Diagnosed Date OB Reminders 09/18/2023 documented as of this encounter Care Teams Fnp Relationship Specialty Start Date End Date Michelle Bui PA [address] [place] [address] [place] [address] PCP - Medical [place] [employer] 12/26/23 07/08/24 documented as of this encounter
--- OUTSIDE RECORDS SUMMARY | 2024-09-20 12:34 | XMS_ITS | Clinical Summary ---
Author Organization [facility] Address [address], [address] [place] [address] Care Team Providers Care Manager Icu Name Role Phone Radha Harrington MANAGER ATHLETICS - AGENT BROKER Primary Care Provide r Allergies No known active allergies Medications cetirizine (ZYRTEC) 10 MG tablet Take 1 tablet by mouth daily Active Active Problems No known active problems Family History Medical History Relation Name Comments Cancer Maternal Aunt Diabetes Paternal Uncle Relation Name Status Comments Father Alive Maternal Aunt Mother Alive Paternal Uncle Social History Tobacco Use Types Packs/Day Years Used Date Smoking Tobacco: Never Smokeless Tobacco: Never Tobacco Cessation:Counseling Given: Not Answered Alcohol Use Standard Drinks/Week Comments No 0 (1 standard drink = 0.6 oz pur e alcohol) Overall Financial Resource Strain (CARDIA) Answe r Date Recorded How hard is it for you to pa y for the very basics like food, housing, medical care, and heating? Not hard at all 03/18/2023 PHQ-2 Answer Date Recorded PHQ-9 Total Score 0 03/18/2023 Hunger Vital Sign Answer Date Recorded Within the past 12 months, y ou worried that your food would run out before you got the money to buy more. Never true 03/18/19 24 Within the past 12 months, t he food you bought just didn't last and you didn't have money to get more. Never true 03/18/2023 PRAPARE - Transportation Answer Date Re corded Lack of Transportation (Medical) Not on file 03/18/2023 In the past 12 months, has l ack of transportation kept you from meetings, work, or from getting things needed for daily living? No 03/18/2023 Housing Stability Vital Sign Answer Sotero e Recorded Unable to Pay for Housing in the Last Year Not o n file 03/18/2023 Number of Places Lived in the Last Year Not on f ile 03/18/2023 In the last 12 months, was t here a time when you did not have a steady place to sleep or slept in a longterm (including now)? No 03/18/2023 Food Insecurity Answer Date Recorded Within the past 12 months, y ou worried that your food would run out before you got the money to buy more. 1 03/18/2023 Within the past 12 months, t he food you bought just didn't last and you didn't have money to get more. 1 03/18/2023 Comments Unknown Sex and Gender Information Value Date Recorded Sex Assigned at Not on file Legal Sex Female 2:52 PM EST Gender Identity Not on file Sexual Orientation Not on file Last Filed Vital Signs Vital Sign Reading Time Taken Comments Blood Pressure 110/68 06/27/2023 10:03 AM EDT Pulse 75 06/27/2023 10:03 AM EDT Temperature 37 C (98.6 F) 07/05/2021 10:45 PM EDT Respiratory Rate 16 07/05/2021 10:45 PM EDT Oxygen Saturation 99% 03/18/2023 8:54 AM EST Inhaled Oxygen Concentration - - Weight 58.5 kg (129 lb) 06/27/2023 10:03 AM EDT Height 149.9 cm (4' 11 ) 06/27/2023 10:03 AM EDT Body Mass Index 26.05 06/27/2023 10:03 AM EDT Plan of Treatment Health Maintenance Due Date Last Done Comments Varicella vaccine (1 of 2 - 13+ 2-dose series) 2013 HIV screen 11/11/2015 HPV vaccine (1 - 3-dose series) 11/11/2015 Chlamydia/GC screen 2016 Meningococcal B vaccine (1 o f 2 - Standard) 2016 Hepatitis C screen 2018 DTaP/Tdap/Td vaccine (1 - Tdap) 11/11/2019 Hepatitis B vaccine (1 of 3 - 19+ 3-dose series) 11/11/2019 Pap smear 2021 COVID-19 Vaccine (1 - 2023-2 5 season) 2023 Depression Screen 03/18/2024 03/18/2023 Flu vaccine (#1) 09/24/2024 Hepatitis A vaccine Aged Out No longe r eligible based on patient's age to complete this topic Hib vaccine Aged Out No longer eligi ble based on patient's age to complete this topic Meningococcal (ACWY) vaccine Aged Out No longer eligible based on patient's age to complete this topic Pneumococcal 0-49 years Vaccine Aged Out No longer eligible based on patient's age to complete this topic Polio vaccine Aged Out No longer elig ible based on patient's age to complete this topic Insurance * Guarantor: Chi Garcia Account Type Relation to Patient Date of Phone Billing Address Personal/Family Self 2000 [address] [place] [address] [facility] Care Teams Manager Icu Relationship Specialty Start Date End Date Radha Harrington, MANAGER ATHLETICS - AGENT BROKER [address] [place] [id number] PCP - General Certified Nurse Practitioner 03/18/23
--- OUTSIDE RECORDS SUMMARY | 2024-09-20 12:34 | XMS_ITS | Encounter Summary ---
Author Organization [facility] Address [address] [place] [address] Care Team Providers Care Vp Of Customer Experience Strategy Name Role Phone Michelle Bui Unavailable Encounter Details Date Type Department Care Team (Late st Contact Info) Description 09/24/2023 Clinisync Result Encounter [facility] External Department Unsolicited Lilian Berry, DO [address] [facility] [address] M[address]orm[place] C [place] [id number] Social History Tobacco Use Types Packs/Day Years Used Date Smoking Tobacco: Never Assessed Comments Yes Sex and Gender Information Value [...] Priority Date/Time Associated Diagnosis Comments US OB CERVICAL LENGTH 09/24/2023 8:26 AM EDT documented in this encounter Results * US OB CERVICAL LENGTH (09/24/2023 8:26 AM EDT) Anatomical Region Laterality Modality Other 09/24/2023 8:26 AM EDT Narrative 09/24/2023 8:28 AM EDT The [address] [address] Ultrasound Report Signed Patient: BEN GARCIA MR#: [id number] : 2000 Acct:[id number] Age/Sex: 22 / F ADM Date: 09/24/23 Loc: US Attending Dr: Lilian Berry D.O. Ordering Physician: Lilian Berry D.O. Date of Service: 09/24/23 Procedure(s): US OB cervical length Accession Number(s): [id number] cc: Lilian Berry D.O.; Physician,Non-Staff M.DJens [place] [id number] Patient Name: BEN GARCIA MRN: [id number] date: 2000 Sex: F Assigned Patient Location: US Current Patient Location: US Accession/Order Number: [id number] Exam Date: 09/24/2023 07:04 Report Date: 09/24/2023 08:26 At the request of: LILIAN BERRY Procedure: US OB cervical length EXAMINATION: US OB anatomy, US OB cervical length HISTORY: Encounter for anatomic survey Z36.89 COMPARISON: No relevant comparison available. TECHNIQUE: Transabdominal sonographic examination was performed for obstetrical and evaluation. FINDINGS: Number: 1 Heart Rate: 147.96 bpm H.B. /min position: Cephalic presentation, longitudinal lie Amniotic Fluid Volume: Subjectively normal Placental Location: Posterior, placental edge is 1.1 cm from the internal os. Grade 0. Cervix Length: 5.6 cm , closed Normal anatomy: Lateral ventricles, cerebellum, posterior fossa, nose, lips, orbits, four-chamber heart, RVOT, LVOT, diaphragm, stomach, kidneys, abdominal cord insertion, bladder, umbilical arteries, three-vessel cord, spine, extremities Other: 5 mm area of anechoic echogenicity cervix, nabothian cyst favored BIOMETRY: BPD: 4.69 cm; 20 weeks 1 day 27.50 % HC: 17.85 cm; 20 weeks 2 days; 23.60 % AC: 14.63 cm; 19 weeks 6 days ; 19.80 % FL: 2.94 cm; 19 weeks 0 days; 3.60 % EFW:302.83 g; 5.80 %, 11 ounces FL/AC: 20.07 FL/BPD: 62.60 HC/AC: 1.22 GESTATIONAL AGE: Age by EDC: 20 weeks 5 days MILLI by EDC: 2024-02-06 Age by current US: 19 weeks 6 days MILLI by current US: 2024-02-12 US/US OB cervical length IMPRESSION: Marginal placenta previa, the placental edge is 1.1 cm from the internal os Otherwise normal anatomy scan Closed cervix measuring 5.6 cm length *Reference: [employer] Practice Guideline for the performance of Obstetric Ultrasound Examinations, November 24, 2006. Electronically authenticated by: GAVIN GODINEZ Date: 09/24/2023 08:26 Dictated By: Gavin Godinez M.D. Signed By: 09/24/23827 DD/ 5 TD/TT: Teller Supervisor: Procedure Note Radiology, Radiologist, MD - 09/24/2023 [place] [address] Ultrasound Report Signed Patient: BEN GARCIA AMR#: [id number] : 2000Acct:[id number] Age/Sex: 22 FADM Date: 09/24/23 Loc: US Attending Dr: Lilian Berry D.O. Ordering Physician: Lilian Berry D.O. Date of Service: 09/24/23 Procedure(s): US OB cervical length Accession Number(s): [id number] cc: Lilian Berry D.O.; Physician,Non-Staff Henri The [place] [address] Patient Name: BEN GARCIA MRN: [id number] date: 2000 Sex: F Assigned Patient Location: US Current Patient Location: US Accession/Order Number: [id number] Exam Date: 09/24/2023 07:04 Report Date: 09/24/2023 08:26 At the request of: LILIAN BERRY Procedure: US OB cervical length EXAMINATION: US OB anatomy, US OB cervical length HISTORY: Encounter for anatomic survey Z36.89 COMPARISON: No relevant comparison available. TECHNIQUE: Transabdominal sonographic examination was performed for obstetrical and evaluation. FINDINGS: Number: 1 Heart Rate: 147.96 bpm H.B. /min position: Cephalic presentation, longitudinal lie Amniotic Fluid Volume: Subjectively normal Placental Location: Posterior, placental edge is 1.1 cm from the internalos. Grade 0. Cervix Length: 5.6 cm , closed Normal anatomy: Lateral ventricles, cerebellum, posterior fossa, nose,lips, orbits, four-chamber heart, RVOT, LVOT, diaphragm, stomach, kidneys,abdominal cord insertion, bladder, umbilical arteries, three-vessel cord, spine, extremities Other: 5 mm area of anechoic echogenicity cervix, nabothian cyst favored BIOMETRY: BPD: 4.69 cm; 20 weeks 1 day 27.50 % HC: 17.85 cm; 20 weeks 2 days; 23.60 % AC: 14.63 cm; 19 weeks 6 days ; 19.80 % FL: 2.94 cm; 19 weeks 0 days; 3.60 % EFW:302.83 g; 5.80 %, 11 ounces FL/AC: 20.07 FL/BPD: 62.60 HC/AC: 1.22 GESTATIONAL AGE: Age by EDC: 20 weeks 5 days MILLI by EDC: 2024-02-06 Age by current US: 19 weeks 6 days MILLI by current US: 2024-02-12 US/US OB cervical length IMPRESSION: Marginal placenta previa, the placental edge is 1.1 cm from the internalos Otherwise normal anatomy scan Closed cervix measuring 5.6 cm length *Reference: [employer] Practice Guideline for the performance of Obstetric Ultrasound Examinations, November 24, 2006. Electronically authenticated by: GAVIN GODINEZ Date: 09/24/2023 08:26 Dictated By: Gavin Godinez M.D. Signed By:09/24/2328 DD/ 5 TD/TT: Teller Supervisor: us Lilian Kristi DO [facility] Final Result documented in this encounter Visit Diagnoses Not on filedocumented in this encounter Additional Health Concerns Active Problems Noted Date Diagnosed Date OB Reminders 09/18/2023 documented as of this encounter Care Teams Vp Of Customer Experience Strategy Relationship Specialty Start Date End Date Michelle Bui PA [address] [facility] [address] [place], [facility] [address] PCP - Medical [place] [employer] 12/26/23 07/08/24 documented as of this encounter
--- OUTSIDE RECORDS SUMMARY | 2024-09-20 12:34 | XMS_ITS | Encounter Summary ---
Author Organization [facility] Address [address] [place] [place] [address] Care Team Providers Care Glassware Selector Name Role Phone Michelle Bui Unavailable Encounter Details Date Type Department Care Team (Late st Contact Info) Description 08/21/2023 Abstract HAN Balderrama OBHARI [address] [place] [address] Sagrario Maldonado LPN [address] [place] [address] Social History Tobacco Use Types Packs/Day Years [...] on filedocumented in this encounter Care Teams Glassware Selector Relationship Specialty Start Date End Date Michelle Bui PA [address] [employer] [address] [place], [facility]11 PCP - Medical [place] [employer] 12/26/23 07/08/24 documented as of this encounter
--- OUTSIDE RECORDS SUMMARY | 2024-09-20 12:34 | XMS_ITS | Encounter Summary ---
Author Organization [facility] Address [address] [place] [address] Care Team Providers Care Traffic Representative Name Role Phone Michelle Bui Unavailable Encounter Details Date Type Department Care Team (Late st Contact Info) Description 07/18/2023 Clinisync Result Encounter [facility] External Department Unsolicited Lilian Berry, DO [address] [facility] [address] [place] C [place] [phone] Social History Tobacco Use Types Packs/Day Years Used Date Smoking Tobacco: Never Assessed Comments Yes Sex and Gender Information Value Date Recorded Sex Assigned at Not on file Legal Sex Female 2:50 PM EST Gender Identity Not on file Sexual Orientation Not on file documented as of this encounter Plan of Treatment Not on file documented as of this encounter Procedures Procedure Name Priority Date/Time Associated Diagnosis Comments US OB TRANSVAGINAL 07/18/2023 9: 28 AM EDT documented in this encounter Results * US OB TRANSVAGINAL (07/18/2023 9:28 AM EDT) Anatomical Region Laterality Modality Other 07/18/2023 9:28 AM EDT Narrative 07/18/2023 9:30 AM EDT The [address] [address] Ultrasound Report Signed Patient: BEN GARCIA MR#: [id number] : 2000 Acct:[id number] Age/Sex: 22 / F ADM Date: 07/18/23 Loc: NOMS Attending Dr: Lilian Berry D.O. Ordering Physician: Lilian Berry D.O. Date of Service: 07/18/23 Procedure(s): US OB transvaginal Accession Number(s): [id number] cc: Lilian Berry D.O.; Physician,Non-Staff Henri The [place] [id number] Patient Name: BEN GARCIA MRN: [id number] date: 2000 Sex: F Assigned Patient Location: [facility] Current Patient Location: [facility] Accession/Order Number: [id number] Exam Date: 07/18/2023 08:34 Report Date: 07/18/2023 09:28 At the request of: LILIAN BERRY Procedure: US OB transvaginal EXAMINATION: US OB transvaginal HISTORY: MISSED MENSES COMPARISON: No relevant comparison available. FINDINGS: GESTATIONAL SAC: Present and normal appearing. YOLK SAC: Present and normal appearing. POLE: Present and normal appearing. CARDIAC: Present. UTERUS: Normal size and appearance. OVARIES: Right: Corpus lutein cyst. Left: Normal. CERVIX: 4.8 cm in length and closed. CUL-DE-SAC: Normal. OTHER: None. AGE BY LMP: 11 weeks 0 days MILLI BY LMP: 02/06/2024 AGE BY US CRL: 10 weeks 4 days MILLI BY US CRL: 02/09/2024 US/US OB transvaginal IMPRESSION: 1. Single live intrauterine . Electronically authenticated by: RAFAEL NEAL Date: 07/18/2023 09:28 Dictated By: Rafael Neal M.D. Signed By: 07/18/23929 DD/ 7 TD/TT: Quality Lab Assoc: Procedure Note Radiology, Radiologist, - 07/18/2023 [place] [address] Ultrasound Report Signed Patient: BEN GARCIA AMR#: [id number] : 2000Acct:[id number] Age/Sex: 22 / FADM Date: 07/18/23 Loc: NOMS Attending Dr: Lilian Berry D.O. Ordering Physician: Lilian Berry D.O. Date of Service: 07/18/23 Procedure(s): US OB transvaginal Accession Number(s): [id number] cc: Lilian Berry D.O.; Physician,Non-Staff Henri [place] [address] Patient Name: BEN GARCIA MRN: [id number] date: 2000 Sex: F Assigned Patient Location: [facility] Current Patient Location: [facility] Accession/Order Number: [id number] Exam Date: 07/18/2023 08:34 Report Date: 07/18/2023 09:28 At the request of: LILIAN BERRY Procedure: US OB transvaginal EXAMINATION: US OB transvaginal HISTORY: MISSED MENSES COMPARISON: No relevant comparison available. FINDINGS: GESTATIONAL SAC: Present and normal appearing. YOLK SAC: Present and normal appearing. POLE: Present and normal appearing. CARDIAC: Present. UTERUS: Normal size and appearance. OVARIES: Right: Corpus lutein cyst. Left: Normal. CERVIX: 4.8 cm in length and closed. CUL-DE-SAC: Normal. OTHER: None. AGE BY LMP: 11 weeks 0 days MILLI BY LMP: 02/06/2024 AGE BY US CRL: 10 weeks 4 days MILLI BY US CRL: 02/09/2024 US/US OB transvaginal IMPRESSION: 1. Single live intrauterine . Electronically authenticated by: RAFAEL NEAL Date: 07/18/2023 09:28 Dictated By: Rafael Neal M.D. Signed By:07/18/23929 DD/ 7 TD/TT: Quality Lab Assoc: us Lilian Berry DO [facility] Final Result documented in this encounter Visit Diagnoses Not on filedocumented in this encounter Care Teams Traffic Representative Relationship Specialty Start Date End Date Michelle Bui PA [address] [facility] [address] [place], [facility]11 PCP - Medical [place] [employer] 12/26/23 07/08/24 documented as of this encounter
--- OUTSIDE RECORDS SUMMARY | 2024-09-20 12:34 | XMS_ITS | Encounter Summary ---
Demographics Address [address] [place] [address] Home Phone Preferred Language Luxembourger Marital Status Unknown Congregational Affiliation Unknown Race Unknown Ethnic Group Unknown Author Organization [facility] Address [id number] [address] [place] [address] Care Team Providers Care Civil Design Technician Name Role Phone Unavailable Primary Care Provider Unavailabl e Encounter Details Date Type Department Care Team (Late st Contact Info) Description 12/24/2023 Orders Only Maternal- Medicine at [facility] [address] [place] [address] Ref Prov, [place] [address] Social History Tobacco Use Types Packs/Day Years Used Date Smoking Tobacco: Never Assessed Comments Yes Sex and Gender Information Value Date Recorded Sex Assigned at Not on file Legal Sex Female 2:59 PM EDT Gender Identity Not on file Sexual Orientation Not on file documented as of this encounter Plan of Treatment Not on file documented as of this encounter Procedures Procedure Name Priority Date/Time Associated Diagnosis Comments US PREG LMTD 1 OR MORE FETUS Routine 12/24/2023 3:41 PM EDT US PREG LMTD 1 OR MORE FETUS Routine 12/24/2023 3:38 PM EDT US PREG LMTD 1 OR MORE FETUS Routine 12/24/2023 3:37 PM EDT US PREG LMTD 1 OR MORE FETUS Routine 12/24/2023 3:35 PM EDT UNLISTED GENETIC TEST Routine 12/24/2023 3:01 PM EDT documented in this encounter Results * Ultrasound limited 1 or more fetus (12/24/2023 3:41 PM EDT) Anatomical Region Laterality Modality OB-PARKING ENFORCEMENT TECHNICIAN Ultrasound us Not In System Ref Prov IMG US ORDERABLES Final R esult * Ultrasound limited 1 or more fetus (12/24/2023 3:38 PM EDT) Anatomical Region Laterality Modality OB-PARKING ENFORCEMENT TECHNICIAN Ultrasound us Not In System Ref Prov IMG US ORDERABLES Final R esult * Ultrasound limited 1 or more fetus (12/24/2023 3:37 PM EDT) Anatomical Region Laterality Modality OB-PARKING ENFORCEMENT TECHNICIAN Ultrasound us Not In System Ref Prov IMG US ORDERABLES Final R esult * Ultrasound limited 1 or more fetus (12/24/2023 3:35 PM EDT) Anatomical Region Laterality Modality OB-PARKING ENFORCEMENT TECHNICIAN Ultrasound us Not In System Ref Prov IMG US ORDERABLES Final R esult * Unlisted Genetic Test (12/24/2023 3:01 PM EDT) us Not In System Ref Prov LAB BLOOD ORDERABLES April méndez Result MANUALLY TRANSCRIBED RESULTS documented in this encounter Visit Diagnoses Not on filedocumented in this encounter
--- OUTSIDE RECORDS SUMMARY | 2024-09-20 12:34 | XMS_ITS | Encounter Summary ---
Author Organization [facility] Address [address] [place] [address] Care Team Providers Care Bobbin Cleaning Machine Operator Name Role Phone Michelle Bui Unavailable Encounter Details Date Type Department Care Team (Late st Contact Info) Description 01/06/2024 Abstract HAN TAPIA [address] [facility] [place] [address] Sidney Berry DO [address] [facility] [address] [place], [place] [address] Social History Tobacco Use Types Packs/Day Years [...] documented as of this encounter Care Teams Bobbin Cleaning Machine Operator Relationship Specialty Start Date End Date Michelle Bui PA [address] [place] [address] [place], [facility]11 PCP - Medical [place] [employer] 12/26/23 07/08/24 documented as of this encounter
--- OUTSIDE RECORDS SUMMARY | 2024-09-20 12:34 | XMS_ITS | Encounter Summary ---
Author Organization [facility] Address [address] [place] [address] Care Team Providers Care Jigger Artisan Name Role Phone Michelle Bui Unavailable Encounter Details Date Type Department Care Team (Late st Contact Info) Description 03/14/2023 Clinisync Result Encounter [facility] External Department Unsolicited Lilian Berry, DO [address] C [place] [id number] Social History Tobacco Use Types Packs/Day Years [...] Date/Time Associated Diagnosis Comments US OB TRANSVAGINAL 03/14/2023 10 :50 AM EST documented in this encounter Results * US OB TRANSVAGINAL (03/14/2023 10:50 AM EST) Anatomical Region Laterality Modality Other 03/14/2023 10:5 0 AM EST Narrative 03/14/2023 10:52 AM EST The [address] [address] Ultrasound Report Signed Patient: CHI ALVA MR#: [id number] : 2000 Acct:[id number] Age/Sex: 22 / F ADM Date: 03/14/23 Loc: US Attending Dr: Lilian Berry D.O. Ordering Physician: Lilian Berry D.O. Date of Service: 03/14/23 Procedure(s): US OB transvaginal Accession Number(s): [id number] cc: Lilian Berry D.O.; Physician,Non-Staff Henri The [place] [id number] Patient Name: CHI ALVA MRN: [id number] date: 2000 Sex: F Assigned Patient Location: US Current Patient Location: US Accession/Order Number: [id number] Exam Date: 03/14/2023 09:50 Report Date: 03/14/2023 10:50 At the request of: LILIAN BERRY Procedure: US OB transvaginal EXAMINATION: US OB transvaginal HISTORY: MISSED MENSES COMPARISON: No relevant comparison available. FINDINGS: Pittman intrauterine gestation Gestational sac: 3.2 cm, 8 weeks 2 days CRL: 1.19 cm, 7 weeks 3 days Yolk sac: 3.1 mm Cardiac activity: Not visualized The uterus is normal, anteverted, anteflexed The ovaries are normal. Right corpus luteal cyst Cervix: Closed, 3.3 cm Clinical age: Unknown Ultrasound age: 7 weeks 3 days Ultrasound MILLI: 10/28/2023 Dr. Berry was made aware of the findings by the technologist at the time of exam US/US OB transvaginal IMPRESSION: No cardiac activity is observed consistent with a demise Electronically authenticated by: GAVIN GODINEZ Date: 03/14/2023 10:50 Dictated By: Gavin Godinez M.D. Signed By: 03/14/23 1052 DD/ 1050 TD/TT: Soda Room Operator: Procedure Note Radiology, Radiologist, - 03/14/[address] [address] Ultrasound Report Signed Patient: CHI ALVA AMR#: [id number] : 2000Acct:[id number] Age/Sex: 22 / FADM Date: 03/14/23 Loc: US Attending Dr: Lilian Berry D.O. Ordering Physician: Lilian Berry D.O. Date of Service: 03/14/23 Procedure(s): US OB transvaginal Accession Number(s): [id number] cc: Lilian Berry D.O.; Physician,Non-Staff Henri [place] [address] Patient Name: CHI ALVA MRN: [facility]:[id number] date: 2000 Sex: F Assigned Patient Location: US Current Patient Location: US Accession/Order Number: [id number] Exam Date: 03/14/2023 09:50 Report Date: 03/14/2023 10:50 At the request of: LILIAN BERRY Procedure: US OB transvaginal EXAMINATION: US OB transvaginal HISTORY: MISSED MENSES COMPARISON: No relevant comparison available. FINDINGS: Pittman intrauterine gestation Gestational sac: 3.2 cm, 8 weeks 2 days CRL: 1.19 cm, 7 weeks 3 days Yolk sac: 3.1 mm Cardiac activity: Not visualized The uterus is normal, anteverted, anteflexed The ovaries are normal. Right corpus luteal cyst Cervix: Closed, 3.3 cm Clinical age: Unknown Ultrasound age: 7 weeks 3 days Ultrasound MILLI: 10/28/2023 Dr. Berry was made aware of the findings by the technologist at the timeof exam US/US OB transvaginal IMPRESSION: No cardiac activity is observed consistent with a demise Electronically authenticated by: GAVIN GODINEZ Date: 03/14/2023 10:50 Dictated By: Gavin Godinez M.D. Signed By:03/14/23 1052 DD/ 1050 TD/TT: Soda Room Operator: us Lilian Berry DO [facility] Final Result documented in this encounter Visit Diagnoses Not on filedocumented in this encounter Care Teams Jigger Artisan Relationship Specialty Start Date End Date Michelle Bui PA [address] [facility] [place] [address] PCP - Medical [place] [employer] 12/26/23 07/08/24 documented as of this encounter
--- OUTSIDE RECORDS SUMMARY | 2024-09-20 12:34 | XMS_ITS | Encounter Summary ---
Author Organization [facility] Address [address] [place] [address] Care Team Providers Care Cardiothoracic Surgeon Name Role Phone Michelle Bui Unavailable Encounter Details Date Type Department Care Team (Late st Contact Info) Description 07/23/2023 Abstract HAN TAPIA [address] [place] [address] Sidney Berry DO [address] [place], [place] [address] Social History Tobacco Use Types Packs/Day Years [...] on filedocumented in this encounter Care Teams Cardiothoracic Surgeon Relationship Specialty Start Date End Date Michelle Bui PA [address] [place], [facility]11 PCP - Medical [place] [employer] 12/26/23 07/08/24 documented as of this encounter
--- OUTSIDE RECORDS SUMMARY | 2024-09-20 12:34 | XMS_ITS | Encounter Summary ---
Author Organization [facility] Address [address] [place] [address] Care Team Providers Care Adjunct Psychology Professor Name Role Phone Michelle Bui Unavailable Encounter Details Date Type Department Care Team (Late st Contact Info) Description 10/16/2023 Clinisync Result Encounter NOMS External Department Unsolicited Lilian Berry, DO [address] [facility] [address] Anny [place] [phone] Social History Tobacco Use Types Packs/Day Years [...] Associated Diagnosis Comments US OB CERVICAL LENGTH 10/16/2023 9:23 AM EDT documented in this encounter Results * US OB CERVICAL LENGTH (10/16/2023 9:23 AM EDT) Anatomical Region Laterality Modality Other 10/16/2023 9:23 AM EDT Narrative 10/16/2023 9:26 [place] [address] Ultrasound Report Signed Patient: BEN CHANCE MR#: [id number] : 2000 Acct:[id number] Age/Sex: 22 / F ADM Date: 10/16/23 Loc: NOMS Attending Dr: Lilian Berry D.O. Ordering Physician: Lilian Berry D.O. Date of Service: 10/16/23 Procedure(s): US OB cervical length Accession Number(s): [id number] cc: Lilian Berry D.O.; Physician,Non-Staff Henri The [place] [id number] Patient Name: BEN CHANCE MRN: [id number] date: 2000 Sex: F Assigned Patient Location: [facility] Current Patient Location: [facility] Accession/Order Number: [id number] Exam Date: 10/16/2023 08:04 Report Date: 10/16/2023 09:23 At the request of: LILIAN BERRY Procedure: US OB cervical length EXAMINATION: US OB placenta, US OB cervical length HISTORY: LOW LYING PLACENTA COMPARISON: Ultrasound OB Anatomy 09/24/2023 FINDINGS: PLACENTA: Posterior with lower margin 5.0 cm from os. No abruption or subchorionic hematoma. CERVIX LENGTH: 3.8 cm; closed. HEART RATE: Not recorded. OTHER: None. US/US OB cervical length IMPRESSION: 1. Posterior placenta which is no longer low-lying. Electronically authenticated by: RAFAEL NEAL Date: 10/16/2023 09:23 Dictated By: Rafael Neal M.D. Signed By: 10/16/23925 DD/ 2 TD/TT: Acoustic Warfare Analyst: Procedure Note Radiology, Radiologist, MD - 10/16/2023 The [place] [id number] Ultrasound Report Signed Patient: BEN CHANCE AMR#: [id number] : 2000Acct:[id number] Age/Sex: M Date: 10/16/23 Loc: NOMS Attending Dr: Lilian Berry D.O. Ordering Physician: Lilian Berry D.O. Date of Service: 10/16/23 Procedure(s): US OB cervical length Accession Number(s): [id number] cc: Lilian Berry D.O.; Physician,Non-Staff MJensDJens [address] [address] Patient Name: BEN CHANCE MRN: [id number] date: 2000 Sex: F Assigned Patient Location: [facility] Current Patient Location: [facility] Accession/Order Number: [id number] Exam Date: 10/16/2023 08:04 Report Date: 10/16/2023 09:23 At the request of: LILIAN BERRY Procedure: US OB cervical length EXAMINATION: US OB placenta, US OB cervical length HISTORY: LOW LYING PLACENTA COMPARISON: Ultrasound OB Anatomy 09/24/2023 FINDINGS: PLACENTA: Posterior with lower margin 5.0 cm from os. No abruption or subchorionic hematoma. CERVIX LENGTH: 3.8 cm; closed. HEART RATE: Not recorded. OTHER: None. US/US OB cervical length IMPRESSION: 1. Posterior placenta which is no longer low-lying. Electronically authenticated by: RAFAEL NEAL Date: 10/16/2023 09:23 Dictated By: Rafael Neal M.D. Signed By:10/16/23925 DD/ 2 TD/TT: Acoustic Warfare Analyst: us Lilian Berry DO [facility] Final Result documented in this encounter Visit Diagnoses Not on filedocumented in this encounter Additional Health Concerns Active Problems Noted Date Diagnosed Date OB Reminders 09/18/2023 documented as of this encounter Care Teams Adjunct Psychology Professor Relationship Specialty Start Date End Date Michelle Bui PA [address] [place], [place] [address]ar[place] [address] PCP - Medical [place] [employer] 12/26/23 07/08/24 documented as of this encounter
--- OUTSIDE RECORDS SUMMARY | 2024-09-20 12:34 | XMS_ITS | Encounter Summary ---
Author Organization [facility] Address [address] [place] [address] Care Team Providers Care Magnetic Locater Name Role Phone Michelle Bui Unavailable Encounter Details Date Type Department Care Team (Late st Contact Info) Description 03/19/2023 Clinisync Result Encounter [facility] External Department Unsolicited Lilian Berry, DO [address] [place] [id number] Social History Tobacco Use Types Packs/Day Years [...] Date/Time Associated Diagnosis Comments US OB TRANSVAGINAL 03/19/2023 9: 09 AM EST documented in this encounter Results * US OB TRANSVAGINAL (03/19/2023 9:09 AM EST) Anatomical Region Laterality Modality Other 03/19/2023 9:09 AM EST Narrative 03/19/2023 9:12 AM EST The [address] [address] Ultrasound Report Signed Patient: BEN ALVA MR#: [id number] : 2000 Acct:[id number] Age/Sex: 22 / F ADM Date: 03/19/23 Loc: [facility] Attending Dr: Lilian Berry D.O. Ordering Physician: Lilian Berry D.O. Date of Service: 03/19/23 Procedure(s): US OB transvaginal Accession Number(s): [id number] cc: Lilian Berry D.O.; Physician,Non-Staff Henri The [place] [id number] Patient Name: BEN ALVA MRN: [id number] date: 2000 Sex: F Assigned Patient Location: [facility] Current Patient Location: [facility] Accession/Order Number: [id number] Exam Date: 03/19/2023 08:08 Report Date: 03/19/2023 09:09 At the request of: LILIAN BERRY Procedure: US OB transvaginal EXAMINATION: US OB transvaginal HISTORY: VIABILITY COMPARISON: 03/14/2023 FINDINGS: Pittman intrauterine gestation Yolk sac: Calcified Gestational sac: 3.31 cm, 8 weeks 2 days CRL: 1.22 cm, 7 weeks 3 days Cardiac activity: None The uterus is normal, anteverted, anteflexed The ovaries are normal. The cervix is closed measuring 3.7 cm. Findings relayed by the technologist to Dr. Berry at the time of exam US/US OB transvaginal IMPRESSION: Absent cardiac activity consistent with demise Electronically authenticated by: GAVIN GODINEZ Date: 03/19/2023 09:09 Dictated By: Gavin Godinez M.D. Signed By: 03/19/23911 DD/ 8 TD/TT: Fitness/Wellness Director: Procedure Note Radiology, Radiologist, MD - 04/30/2023 [place] [address] Ultrasound Report Signed Patient: BEN ALVA AMR#: [id number] : 2000Acct:[id number] Age/Sex: 22 / FADM Date: 03/19/23 Loc: [facility] Attending Dr: Lilian Berry D.O. Ordering Physician: Lilian Berry D.O. Date of Service: 03/19/23 Procedure(s): US OB transvaginal Accession Number(s): [id number] cc: Lilain Berry D.O.; Physician,Non-Staff Henri The [address] [address] Patient Name: BEN ALVA MRN: [facility]:[id number] date: 2000 Sex: F Assigned Patient Location: [facility] Current Patient Location: [facility] Accession/Order Number: [id number] Exam Date: 03/19/2023 08:08 Report Date: 03/19/2023 09:09 At the request of: LILIAN BERRY Procedure: US OB transvaginal EXAMINATION: US OB transvaginal HISTORY: VIABILITY COMPARISON: 03/14/2023 FINDINGS: Pittman intrauterine gestation Yolk sac: Calcified Gestational sac: 3.31 cm, 8 weeks 2 days CRL: 1.22 cm, 7 weeks 3 days Cardiac activity: None The uterus is normal, anteverted, anteflexed The ovaries are normal. The cervix is closed measuring 3.7 cm. Findings relayed by the technologist to Dr. Berry at the time of exam US/US OB transvaginal IMPRESSION: Absent cardiac activity consistent with demise Electronically authenticated by: GAVIN GODINEZ Date: 03/19/2023 09:09 Dictated By: aGvin Godinez M.D. Signed By:03/19/23911 DD/ 8 TD/TT: Fitness/Wellness Director: us Lilian Berry DO [facility] Final Result documented in this encounter Visit Diagnoses Not on filedocumented in this encounter Care Teams Magnetic Locater Relationship Specialty Start Date End Date Michelle Bui PA [address] [place] [address] [place] [address] PCP - Medical [place] [employer] 12/26/23 07/08/24 documented as of this encounter
--- OUTSIDE RECORDS SUMMARY | 2024-09-20 12:34 | XMS_ITS | Encounter Summary ---
Author Organization [facility] Address [address] [place] [address] Care Team Providers Care Sales Support Technician Name Role Phone Michelle Bui Unavailable Encounter Details Date Type Department Care Team (Late st Contact Info) Description 09/24/2023 Clinisync Result Encounter [facility] External Department Unsolicited Lilian Brery, DO [address] [facility] [address] [place] [id number] Social History Tobacco Use Types Packs/Day Years [...] Priority Date/Time Associated Diagnosis Comments US OB ANATOMY 09/24/2023 8:26 AM EDT documented in this encounter Results * US OB ANATOMY (09/24/2023 8:26 AM EDT) Anatomical Region Laterality Modality Other 09/24/2023 8:26 AM EDT Narrative 09/24/2023 8:28 AM EDT The [address] [address] Ultrasound Report Signed Patient: CHI GARCIA MR#: [id number] : 2000 Acct:[id number] Age/Sex: 22 / F ADM Date: 09/24/23 Loc: US Attending Dr: Lilian Berry D.O. Ordering Physician: Lilian Berry D.O. Date of Service: 09/24/23 Procedure(s): US OB anatomy Accession Number(s): [id number] cc: Lilian Berry D.O.; Physician,Non-Staff M.Jason [address] [address] Patient Name: CHI GARCIA MRN: [id number] date: 2000 Sex: F Assigned Patient Location: US Current Patient Location: US Accession/Order Number: [id number] Exam Date: 09/24/2023 07:04 Report Date: 09/24/2023 08:26 At the request of: LILIAN BERRY Procedure: US OB anatomy EXAMINATION: US OB anatomy, US OB cervical [...] MILLI by current US: 2024-02-12 US/US OB anatomy IMPRESSION: Marginal placenta previa, the placental edge is 1.1 cm from the internal os Otherwise normal anatomy scan Closed cervix measuring 5.6 cm length *Reference: [employer] Practice Guideline for the performance of Obstetric Ultrasound Examinations, November 24, 2006. Electronically authenticated by: GAVIN GODINEZ Date: 09/24/2023 08:26 Dictated By: Gavin Goidnez M.D. Signed By: 09/24/23827 DD/ 5 TD/TT: Cork Wirer: Procedure Note Radiology, Radiologist, MD - 09/24/2023 [place] [address] Ultrasound Report Signed Patient: CHI GARCIA AMR#: [id number] : 2000Acct:[id number] Age/Sex: 22 / FADM Date: 09/24/23 Loc: US Attending Dr: Lilian Berry D.O. Ordering Physician: Lilian Berry D.O. Date of Service: 09/24/23 Procedure(s): US OB anatomy Accession Number(s): [id number] cc: Lilian Berry D.O.; Physician,Non-Staff Henri The [place] [id number] Patient Name: CHI GARCIA MRN: [id number] date: 2000 Sex: F Assigned Patient Location: US Current Patient Location: US Accession/Order Number: [id number] Exam Date: 09/24/2023 07:04 Report Date: 09/24/2023 08:26 At the request of: LILIAN BERRY Procedure: US OB anatomy EXAMINATION: US OB anatomy, US OB cervical [...] MILLI by current US: 2024-02-12 US/US OB anatomy IMPRESSION: Marginal placenta previa, the placental edge is 1.1 cm from the internalos Otherwise normal anatomy scan Closed cervix measuring 5.6 cm length *Reference: [employer] Practice Guideline for the performance of Obstetric Ultrasound Examinations, November 24, 2006. Electronically authenticated by: GAVIN GODINEZ Date: 09/24/2023 08:26 Dictated By: Gavin Godinez M.D. Signed By:09/24/23827 DD/ 5 TD/TT: Cork Wirer: us Lilian Kristi DO [facility] Final Result documented in this encounter Visit Diagnoses Not on filedocumented in this encounter Additional Health Concerns Active Problems Noted Date Diagnosed Date OB Reminders 09/18/2023 documented as of this encounter Care Teams Sales Support Technician Relationship Specialty Start Date End Date Michelle Bui PA [address] [place] [address] [place] [address] PCP - Medical [place] [employer] 12/26/23 07/08/24 documented as of this encounter
--- OUTSIDE RECORDS SUMMARY | 2024-09-20 12:34 | XMS_ITS | Clinical Summary ---
Author Organization [facility] Address [address] [place] [address] Care Team Providers Care Dielectric Embossing Machine Operator Name Role Phone Unavailable Primary Care Provider Unavailabl e Allergies No known active allergies Medications norethindrone (Micronor) 0.35 MG tabletIndications: Well woman exam with routine gynecological exam Take 1 tablet (0.35 mg) by mouth Daily for 28 days Take 1 tablet by mouth daily 28 tablet 11 5 10/19/19 25 Active Drospirenone (Slynd) 4 MG tabletIndications: Encounter for initial prescription of contraceptive pills Take 4 mg by mouth Daily 84 tablet 3 5 09/21/19 25 Discontinu ed(Other) Active Problems Problem Noted Date Diagnosed Date 23 weeks gestation of ([facility]) 2023 History of miscarriage 10/16/2023 Low-lying placenta ([facility]) 10/16/2023 Second trimester ([facility]) 10/16/2023 Diabetes mellitus screening 10/16/2023 Encounters Date Type Department Care Team Description 09/20/2024 9:00 AM EDT Office Visit [facility] [address] [place] [address] Michelle Bui PA Well woman exam with routine gynecological exam 09/20/2024 Bamboo flowsheet [facility] [address] [place] [address] Michelle Bui PA 09/16/2024 Travel from Last 3 Months Family History Medical History Relation Name Comments Diabetes Father's Brother Alex Cancer Mother's Sister Aurelia Relation Name Status Comments Father's Brother Alex Mother's Sister Aurelia Social History Tobacco Use Types Packs/Day Years Used Date Smoking Tobacco: Never Smokeless Tobacco: Never Tobacco Cessation:Counseling Given: Not Answered Alcohol Use Standard Drinks/Week Comments Never 0 [...] (121 lb) 09/20/2024 9:10 AM EDT Height 149.9 cm (4' 11 ) 04/02/2023 10:25 AM EST Body Mass Index 24.44 04/02/2023 10:25 AM EST Plan of Treatment Health Maintenance Due Date Last Done Comments Influenza Vaccine (#1) 2024 01/05/2010, 2007, 12/30/2006 Goals Goal Patient Goal Type Associated Problems Recent Progress Patient-Stated? Author Reminders Care Plan OB Reminders No Open Scheduling, Background Additional Health Concerns Active Problems Noted Date Diagnosed Date OB Reminders 09/18/2023 Insurance [employer]
--- OUTSIDE RECORDS SUMMARY | 2024-09-20 12:34 | XMS_ITS | Encounter Summary ---
Author Organization [facility] Address [address] [place] [address] Care Team Providers Care Siebel Administrator Name Role Phone Michelle Bui Unavailable Encounter Details Date Type Department Care Team (Late st Contact Info) Description 07/24/2023 Abstract [facility] [address] [place] [address] Sidney Berry DO [address], [place] [address] Social History Tobacco Use Types Packs/Day Years [...] on filedocumented in this encounter Care Teams Siebel Administrator Relationship Specialty Start Date End Date Michelle Bui PA [address] [place], [facility] PCP - Medical [place] [employer] 12/26/23 07/08/24 documented as of this encounter
--- OUTSIDE RECORDS SUMMARY | 2024-09-20 12:34 | XMS_ITS | Encounter Summary ---
Author Organization [facility] Address [address] [place] [address] Care Team Providers Care Mini Baccarat Dealer Name Role Phone Michelle Bui Unavailable Encounter Details Date Type Department Care Team (Late st Contact Info) Description 02/06/2024 Abstract [facility] [address] [facility] [place] [address] Sidney Berry DO [address] [facility] [address] [place], [place] [address] Social History Tobacco Use Types Packs/Day Years [...] documented as of this encounter Care Teams Mini Baccarat Dealer Relationship Specialty Start Date End Date Michelle Bui PA [address] [place] [place], [facility]11 PCP - Medical [place] [employer] 12/26/23 07/08/24 documented as of this encounter
--- OUTSIDE RECORDS SUMMARY | 2024-09-20 12:34 | XMS_ITS | Encounter Summary ---
Author Organization [facility] Address [address] [place] [address] Care Team Providers Care Crusher Operator Name Role Phone Michelle Bui Unavailable Encounter Details Date Type Department Care Team (Late st Contact Info) Description 12/19/2023 Clinisync Result Encounter [facility] External Department Unsolicited Lilian Berry, DO [address] [facility] [address] [place] [id number] Social History Tobacco Use Types Packs/Day Years [...] Priority Date/Time Associated Diagnosis Comments US OB GROWTH 12/19/2023 7:46 AM EDT documented in this encounter Results * US OB GROWTH (12/19/2023 7:46 AM EDT) Anatomical Region Laterality Modality Other 12/19/2023 7:46 AM EDT Narrative 12/19/2023 7:49 [place] [address] Ultrasound Report Signed Patient: BEN GARCIA MR#: [id number] : 2000 Acct:[id number] Age/Sex: 23 / F ADM Date: 12/19/23 Loc: US Attending Dr: Lilian Berry D.O. Ordering Physician: Lilian Berry D.O. Date of Service: 12/19/23 Procedure(s): US OB growth Accession Number(s): [id number] cc: Lilian Berry D.O.; Physician,Non-Staff Henri The [place] [address] Patient Name: BEN GARCIA MRN: [id number] date: 2000 Sex: F Assigned Patient Location: US Current Patient Location: US Accession/Order Number: [id number] Exam Date: 12/19/2023 07:06 Report Date: 12/19/2023 07:46 At the request of: LILIAN BERRY Procedure: US OB growth EXAMINATION: US OB growth HISTORY: Small For Gestation Age COMPARISON: Ultrasound OB anatomy 09/24/2023 FINDINGS: Heart Rate: 146.74 bpm Amniotic Fluid Volume: 14.3 cm; normal range. Number: 1 Position: CEPHALIC BIOMETRY: BPD: 7.87 cm; 31 weeks 4 days; 9.60 % HC: 29.17 cm; 32 weeks 1 day; 4.70 % AC: 25.93 cm; 30 weeks 1 day; < 3 % FL: 5.71 cm; 30 weeks 0 days; < 3 % EFW: 1557.79 g; < 3 % FL/AC: 22.03 FL/BPD: 72.65 HC/AC: 1.12 GESTATIONAL AGE: Age by EDC: 33 weeks 0 days MILLI by EDC: 2024-02-06 Age by US: 31 weeks 0 days MILLI by US: 2024-02-20 US/US OB growth IMPRESSION: 1. Single live intrauterine with growth detailed above. 2. Estimated weight is < 3rd percentile. Electronically authenticated by: RAFAEL NEAL Date: 12/19/2023 07:46 Dictated By: Rafael Nael M.D. Signed By: 12/19/2349 DD/ 5 TD/TT: Director Trading: Procedure Note Radiology, Radiologist, - 12/19/2023 [place] [address] Ultrasound Report Signed Patient: BEN GARCIA AMR#: [id number] : 2000Acct:[id number] Age/Sex: 23 / FADM Date: 12/19/23 Loc: US Attending Dr: Lilian Berry D.O. Ordering Physician: Lilian Berry D.O. Date of Service: 12/19/23 Procedure(s): US OB growth Accession Number(s): [id number] cc: Lilian Berry D.O.; Physician,Non-Staff Henri The [place] [address] Patient Name: BEN GARCIA MRN: [id number] date: 2000 Sex: F Assigned Patient Location: US Current Patient Location: US Accession/Order Number: [id number] Exam Date: 12/19/2023 07:06 Report Date: 12/19/2023 07:46 At the request of: LILIAN BERRY Procedure: US OB growth EXAMINATION: US OB growth HISTORY: Small For Gestation Age COMPARISON: Ultrasound OB anatomy 09/24/2023 FINDINGS: Heart Rate: 146.74 bpm Amniotic Fluid Volume: 14.3 cm; normal range. Number: 1 Position: CEPHALIC BIOMETRY: BPD: 7.87 cm; 31 weeks 4 days; 9.60 % HC: 29.17 cm; 32 weeks 1 day; 4.70 % AC: 25.93 cm; 30 weeks 1 day; < 3 % FL: 5.71 cm; 30 weeks 0 days; < 3 % EFW: 1557.79 g; < 3 % FL/AC: 22.03 FL/BPD: 72.65 HC/AC: 1.12 GESTATIONAL AGE: Age by EDC: 33 weeks 0 days MILLI by EDC: 2024-02-06 Age by US: 31 weeks 0 days MILLI by US: 2024-02-20 US/US OB growth IMPRESSION: 1. Single live intrauterine with growth detailed above. 2. Estimated weight is < 3rd percentile. Electronically authenticated by: RAFAEL NEAL Date: 12/19/2023 07:46 Dictated By: Rafael Neal M.D. Signed By:12/19/2349 DD/ 5 TD/TT: Director Trading: us Lilian Kristi DO [facility] Final Result documented in this encounter Visit Diagnoses Not on filedocumented in this encounter Additional Health Concerns Active Problems Noted Date Diagnosed Date OB Reminders 09/18/2023 documented as of this encounter Care Teams Crusher Operator Relationship Specialty Start Date End Date Michelle Bui PA [address] [place] [address] [place] [address] PCP - Medical [place] [employer] 12/26/23 07/08/24 documented as of this encounter
--- OUTSIDE RECORDS SUMMARY | 2024-09-20 12:34 | XMS_ITS | Encounter Summary ---
Author Organization [facility] Address [address] [place] [address] Care Team Providers Care Air/Ocean Export Clerk Name Role Phone Michelle Bui Unavailable Encounter Details Date Type Department Care Team (Late st Contact Info) Description 08/19/2023 Abstract [facility] [address] [place] [address] Sidney Berry DO [address], [place] [address] Social History Tobacco Use Types Packs/Day Years [...] on filedocumented in this encounter Care Teams Air/Ocean Export Clerk Relationship Specialty Start Date End Date Michelle Bui PA [address] [place], [facility]11 PCP - Medical [place] [employer] 12/26/23 07/08/24 documented as of this encounter
--- OUTSIDE RECORDS SUMMARY | 2024-09-20 12:34 | XMS_ITS | Clinical Summary ---
Demographics Address [address] [place] [phone] Home Phone Preferred Language Croatian Marital Status Unknown Rastafari Affiliation Unknown Race Unknown Ethnic Group Unknown Author Organization [facility] Address [id number] [facility] [place] [place] [id number] Care Team Providers Care Freight Forwarder Name Role Phone Unavailable Primary Care Provider Unavailabl e Allergies No known active allergies Medications progesterone (PROMETRIUM) 200 mg capsule Take 1 capsule (200 mg total) by mouth in the morning. Active Active Problems Problem Noted Date Diagnosed Date growth restriction antepartum 12/24/2023 Low-lying placenta 12/24/2023 Family History Medical History Relation Name Comments Cancer Maternal Aunt Diabetes Paternal Uncle Relation Name Status Comments Maternal Aunt Paternal Uncle Social History Tobacco Use Types Packs/Day Years Used Date Smoking Tobacco: Never Assessed Comments No Sex and Gender Information Value Date Recorded Sex Assigned at Not on file Legal Sex Female 2:59 PM EDT Gender Identity Not on file Sexual Orientation Not on file Plan of Treatment Health Maintenance Due Date Last Done Comments Depression Screening 2012 Tobacco Screening 2012 Adult BMI Screening 2018 DTaP,Tdap and Td Vaccines (1 - Tdap) 11/11/2019 Pap Smear 2021 Influenza Vaccine 10/25/2024 Medical Devices Not on file Insurance * Guarantor: Chi Garcia Account Type Relation to Patient Date of Phone Billing Address Personal/Family Self 2000 [address] 02/25 [place] [address] [employer]
--- OUTSIDE RECORDS SUMMARY | 2024-09-20 12:34 | XMS_ITS | Encounter Summary ---
Author Organization [facility] Address [address] [place] [address] Care Team Providers Care Technical Business Analyst Name Role Phone Michelle Bui Unavailable Encounter Details Date Type Department Care Team (Late st Contact Info) Description 10/23/2023 Abstract [facility] [address] [facility] [place] [address] Sidney Berry DO [address] [place], [place] [address] Social History Tobacco Use Types Packs/Day Years [...] documented as of this encounter Care Teams Technical Business Analyst Relationship Specialty Start Date End Date Michelle Bui PA [address] [place], [facility]11 PCP - Medical [place] [employer] 12/26/23 07/08/24 documented as of this encounter
--- OUTSIDE RECORDS SUMMARY | 2024-09-20 12:34 | XMS_ITS | Encounter Summary ---
Author Organization [facility] Address [address] [place] [address] Care Team Providers Care Rn Telemetry Name Role Phone Michelle Bui Unavailable Encounter Details Date Type Department Care Team (Late st Contact Info) Description 02/05/2024 Abstract [facility] [address] [facility] [place] [address] Sidney Berry DO [address] [facility] [address] [place], [place] [address] Social History Tobacco Use Types Packs/Day Years [...] documented as of this encounter Care Teams Rn Telemetry Relationship Specialty Start Date End Date Michelle Bui PA [address] [place] [address] [place], [facility]11 PCP - Medical [place] [employer] 12/26/23 07/08/24 documented as of this encounter
[2024-09-22 14:08] LABS: Age Gdln ACOG Testing Note (.); IGP, rfx Aptima HPV ASCU Note (.)
== END 2024-09-20 12:30 | disposition home or self-care (01) ==
LOC: LAB 12:29
PROVIDERS: Visit Provider Physician Assistant
DX: Z01.419 Encounter for gynecological examination (general) (routine) without abnormal findings (principal)
CPT/HCPCS: 88175